=== PATIENT | male | born 1950 | race Caucasian/White ===

== ENCOUNTER → 2017-10-18 11:23 | Outpatient (CLI) | payer OTHER, SELFPAY ==
[2017-10-18 11:44] LABS: Ferritin 123 ng/mL (26-388); Iron 124 ug/dL (65-175)
== END ==
PROVIDERS: Family Provider Family Medicine; PCP Family Medicine; Visit Provider Family Medicine
DX: E78.5 Hyperlipidemia, unspecified (principal); I10 Essential (primary) hypertension; K76.0 Fatty (change of) liver, not elsewhere classified; D50.9 Iron deficiency anemia, unspecified
CPT/HCPCS: 82728; 83540

== ENCOUNTER → 2018-05-18 09:25 | Outpatient (CLI) | payer OTHER, SELFPAY ==
[2018-05-18 12:37] LABS: Absolute Lymphocyte Count 0.81 X10^3/ul (0.83-4.51); Absolute Neutrophil Count 2.1 X10^3/uL (2.0-7.7); Basophil# 0.02 X10^3/uL; Basophil% 0.6 % (0-1); Eosinophil# 0.15 X10^3/uL; Eosinophils% 4.3 % (0-5); Hematocrit 44.6 % (40-54); Hemoglobin 15.3 g/dl (13.0-16.5); Lymphocyte # 0.81 X10^3/ul (4.0); Lymphocyte % 23.1 % (19-41); Mean Corp Hgb Conc 34.3 g/gl (32-36); Mean Corpuscular Hgb 31.4 pg (27.0-32.0); Mean Corpuscular Volume 91.6 fL (80-94); Mean Platelet Vol. 9.6 fl (6.2-12.0); Monocyte# 0.45 X10^3/uL; Monocyte% 12.9 % (0-10); Neutrophil # 2.05 X10^3/uL (2.7-7.7); Neutrophil % 58.5 % (47-70); Platelet Count 184 K/mm3 (150-450); RBC Distribution Width CV 12.5 % (11.6-14.6); RBC Distribution Width SD 40.9 fl (35.1-43.9); Red Blood Count 4.87 M/mm3 (4.6-6.2); White Blood Count 3.5 K/mm3 (4.4-11.0)
[2018-05-18 12:39] LABS: POSITIVE COUNT NO; POSITIVE DIFFERENTIAL NO; POSITIVE MORPHOLOGY NO
[2018-05-18 12:51] LABS: AST(SGOT) 28 U/L (15-37); Alanine Aminotransfer ALT/SGPT 29 U/L (16-61); Alkaline Phosphatase 72 U/L (45-117); Anion Gap 7 (5-15); BUN 20 mg/dL (7-18); BUN/Creat Ratio 21.6 RATIO (10-20); Calcium,Total 8.9 mg/dL (8.5-10.1); Chloride 106 mmol/L (98-107); Creatinine, Serum 0.92 mg/dL (0.70-1.30); EST Glomerular Filtration Rate 86 mL/min (>60); Est Glom Filt Rate - Afr Amer 104 mL/min (>60); Ferritin 175 ng/mL (26-388); Globulin 3.9 g/dL (2.2-4.2); Glucose 98 mg/dL (74-106); Iron 82 ug/dL (65-175); Potassium 4.2 mmol/L (3.5-5.1); Protein, Total 7.9 g/dL (6.4-8.2); Sodium Level 140 mmol/L (136-145)
[2018-05-18 12:59] LABS: Hemoglobin A1c 5.6 % (4.2-6.3)
== END ==
PROVIDERS: Family Provider Family Medicine; PCP Family Medicine; Visit Provider Family Medicine
DX: I10 Essential (primary) hypertension (principal); I78.0 Hereditary hemorrhagic telangiectasia; K76.0 Fatty (change of) liver, not elsewhere classified
CPT/HCPCS: 36415; 80053; 82728; 83036; 83540; 85025

== ENCOUNTER 2018-06-26 20:30 | Emergency (ER) | payer OTHER, SELFPAY ==
[2018-06-26 20:30] VITALS: BP 171/90; PULSE 103; RESP 16; TEMP 37.1; O2SAT 96; BMI 30.5
--- NOTE | 2018-06-26 20:39 | EKG12_ITS ---
Test Reason : PALP Blood Pressure : / mmHG Vent. Rate : 097 BPM Atrial Rate : 097 BPM P-R Int : 170 ms QRS Dur : 078 ms QT Int : 350 ms P-R-T Axes : 032 018 027 degrees QTc Int : 444 ms Sinus rhythm with Premature atrial complexes Possible Inferior infarct , age undetermined Abnormal ECG Confirmed by HAYLEY DERAS, RG ([id number]), telegraph editor LETICIA ONTIVEROS ([id number]) on 07/01/2018 9:09:15 AM Referred By: CHOLO Confirmed By:RG HARDY MD
--- NOTE | 2018-06-26 20:46 | ED.VIS.GEN ---
History of Present Illness Chief Complaint: Hypertension Detail of Chief Complaint: Palpitations, chest tightness, anxiety, lightheadedness Informant: Patient Onset: Today Context: Sudden Onset Timing: Continuous - Chest tightness continuous since onset 1 hour ago. There are no alleviating, precipitating or exacerbating factors including activity, change in position or food., Intermittent - The palpitations is intermittent. Palpitations/feeling his heartbeat have been constant for the past 2 hours. Quality: Chest tightness and palpitations Location: Mid chest Current Severity: Mild Maximum Severity: Mild Worsened by: Absolutely nothing Relieved by: Absolutely nothing Associated Symptoms: Nothing other than palpitations and there is no radiation Narrative: Patient is an elderly male who presents because he felt his heartbeat yesterday while working the [employer]. He states he became fatigued and had to stop. He denied chest discomfort, shortness of breath, nausea or vomiting, diaphoresis or radiation of the palpitations. He denies black stool. He does have dark stool. He is on iron. He denies coronary disease. He has had intermittent episodes of pounding in his chest. He states while sitting 1 hour ago he developed tightness with no associated symptoms or radiation. There is no alleviating, precipitating or exacerbating factors. He does have history of reflux and hiatal hernia. He reports heartburn and indigestion when he is experiencing symptoms secondary to his reflux/hiatal hernia. Prior similar symptoms: No Recent Illness/Hospitalization: No - Past Medical History (1) HTN (hypertension) Status: Chronic (2) GERD (gastroesophageal reflux disease) Status: Chronic (3) HHT (hereditary hemorrhagic telangiectasia) Status: Chronic (4) HLD (hyperlipidemia) Status: Chronic (5) History of GI bleed Status: Chronic Past Medical History - Allergies and Home Meds Allergies/Adverse Reactions: Allergies Penicillins Allergy (Verified 06/26/18 20:36) [facility] Primary Care Physician: Art Hadley MD [Primary Care Provider] - Prior records reviewed: Yes Past Medical History: - - He denies history of PE, DVT and has no risk factors. Surgical History: - - prostate cancer, torn meniscus in knee, elbow surgery, carpal tunnel. Lives: Spouse/ Significant Other Smoking Status: Never smoker Alcohol: None Drugs: None - Family History Maternal Family History: Reports: No pertinent history Paternal Family History: Reports: No pertinent history Review of Systems General: Denies: Chills, Fever, Sweats Eyes: Denies: Visual changes - bilaterally, Blurred Vision - bilaterally, Diplopia ENT: Denies: Rhinorrhea, Sore throat Cardiovascular: Reports: Chest pain - Central tightness, Palpitations Respiratory: Denies: Dyspnea, Cough, Dyspnea on exertion, Orthopnea, Paroxysmal nocturnal dyspnea Gastrointestinal: Denies: Abdominal pain, Nausea, Vomiting, Diarrhea, Melena, Hematochezia Genitourinary: Denies: Dysuria, Hematuria, Frequency Musculoskeletal: Denies: Myalgias, Arthralgias, Back pain, Extremity Pain Skin: Denies: Rash, Wounds Neurological: Denies: Headache, Weakness, Numbness Psych: Reports: Anxiety Hematologic: Denies: Easy bruising, Easy bleeding Allergy: Denies: Uticaria Physical Exam Vital Signs/Narrative: Vital Signs Temp Pulse Resp BP Pulse Ox 06/26/18 20:30 98.8 F 103 H 16 171/90 H 96 Inital Vital Signs reviewed: Yes General: Well nourished, Well developed, No Acute Distress Head: Normocephalic, Atraumatic Eyes: Perrl, EOMI. Negative for: Pale conjunctiva, Scleral icterus ENT: Moist mucous membranes, No rhinorrhea Neck: Supple, Nontender, No lymphadenopathy, No JVD Cardiovascular: Regular rate, Regular rhythm, No murmurs, Normal S1, Normal S2 Respiratory: No distress, CTA bilaterally, Chest nontender, Chest tenderness. Negative for: Decreased Air Movement Abdomen: Soft, Nontender, Nondistended, Normal bowel sounds. Negative for: Hepatomegaly, Splenomegaly, Mass, Pulsatile mass Back: Nontender, Normal Inspection. Negative for: CVA tenderness Extremities: Nontender, No edema, - - DP and PT pulses are palpable. Patient does have hair on his toes.. Negative for: Tenderness, Calf Tenderness Skin: Normal color, No rash. Negative for: Cyanosis, Jaundice Neurological: Alert, Oriented x3, Cranial nerves II-XII grossly intact, Normal Strength, Normal Sensation Psychological: Normal affect, Normal Mood Diagnostic/Tx/Re-eval Laboratory Results 06/26/18 06/26/18 20:40 20:40 WBC 5.3 RBC 4.73 Hgb 14.5 Hct 43.3 MCV 91.5 MCH 30.7 MCHC 33.5 RDW 12.9 RDW Differential 43.1 Plt Count 179 MPV 9.3 Immature Gran % (Auto) 0.200 Neut % (Auto) 69.4 Lymph % (Auto) 18.3 L [place] % (Auto) 9.0 Eos % (Auto) 2.7 Baso % (Auto) 0.4 Absolute Neuts (auto) 3.7 Absolute Lymphs (auto) 0.96 Total Counted Not Reportable Sodium 141 Potassium 3.7 Chloride 109 H Carbon Dioxide 24.0 Anion Gap 8 BUN 20 H Creatinine 1.11 Estim Creat Clear Calc 61.92 Est GFR (MDRD) Af Amer 84 Est GFR (MDRD) Non-Af 70 BUN/Creatinine Ratio 18.0 Glucose 145 H Calcium 9.1 Troponin I < 0.015 - Rhythm Strip Rhythm Strip: Sinus Rhythm Rate: 102 Ectopy: None - EKG Initial EKG Interpretation: Sinus Rhythm - Ventricular rate is 97. There are premature atrial complexes noted. [place] interval is normal. QRS duration is normal. QT interval is normal. [place] is normal. There are no ischemic changes noted. - Medical Decision Making Patient with atypical presentation. EKG, blood work and troponin was ordered. Will order 3-hour troponin as well. Heart score prior to troponin level is 3 which places patient at low risk. Initial troponins normal. Informed patient reason for repeat troponin and what a repeat troponin would mean with a heart score of 3. After explaining risk benefits of leaving prior to repeat troponin versus obtaining it he agreed to stay for repeat troponin. Plan is to discharge to home with outpatient follow-up if repeat troponin is normal; however, if his troponin is elevated or delta is elevated plan is to admit for further workup i.e. cardiac. Chart was completed his with the presumption repeat troponin is negative and he will be discharged home. Repeat troponin to be assessed by Dr. Portillo Mejia who will make disposition once repeat troponin results are known. ED Disposition - Plan for ED Patient: Disposition: Home or Assisted Living Diagnosis: Central chest pain, Heart palpitations, History of hypertension, History of hyperlipidemia Instructions: ED Chest Pain NonCardiac, ED HTN Established, ED Palpitations Referrals: Art Hadley MD [Primary Care Provider] - 3-5 Days
[2018-06-26 21:02] LABS: Absolute Lymphocyte Count 0.96 X10^3/ul (0.83-4.51); Absolute Neutrophil Count 3.7 X10^3/uL (2.0-7.7); Basophil# 0.02 X10^3/uL; Basophil% 0.4 % (0-1); Eosinophil# 0.14 X10^3/uL; Eosinophils% 2.7 % (0-5); Hematocrit 43.3 % (40-54); Hemoglobin 14.5 g/dl (13.0-16.5); Lymphocyte # 0.96 X10^3/ul (4.0); Lymphocyte % 18.3 % (19-41); Mean Corp Hgb Conc 33.5 g/gl (32-36); Mean Corpuscular Hgb 30.7 pg (27.0-32.0); Mean Corpuscular Volume 91.5 fL (80-94); Mean Platelet Vol. 9.3 fl (6.2-12.0); Monocyte# 0.47 X10^3/uL; Neutrophil # 3.65 X10^3/uL (2.7-7.7); Neutrophil % 69.4 % (47-70); Platelet Count 179 K/mm3 (150-450); RBC Distribution Width CV 12.9 % (11.6-14.6); RBC Distribution Width SD 43.1 fl (35.1-43.9); Red Blood Count 4.73 M/mm3 (4.6-6.2); White Blood Count 5.3 K/mm3 (4.4-11.0)
[2018-06-26 21:08] LABS: POSITIVE COUNT NO; POSITIVE DIFFERENTIAL NO; POSITIVE MORPHOLOGY NO
[2018-06-26 21:17] LABS: Anion Gap 8 (5-15); BUN 20 mg/dL (7-18); Calcium,Total 9.1 mg/dL (8.5-10.1); Chloride 109 mmol/L (98-107); Creatinine, Serum 1.11 mg/dL (0.70-1.30); EST Glomerular Filtration Rate 70 mL/min (>60); Est Glom Filt Rate - Afr Amer 84 mL/min (>60); Estimated Creatinine Clearance 61.92 ml/min; Glucose 145 mg/dL (74-106); Potassium 3.7 mmol/L (3.5-5.1); Sodium Level 141 mmol/L (136-145)
[2018-06-26 21:30] VITALS: BP 168/98; PULSE 93; RESP 16; O2SAT 93
[2018-06-26 22:30] VITALS: BP 157/92; PULSE 88; RESP 16; O2SAT 93
[2018-06-26 23:30] VITALS: BP 155/93; PULSE 84; RESP 15; O2SAT 94
[2018-06-27 00:40] VITALS: BP 155/96; PULSE 85; RESP 20; O2SAT 94
== END 2018-06-27 00:40 | disposition home or self-care (01) ==
PROVIDERS: Emergency Provider Emergency Medicine; Family Provider Family Medicine; PCP Family Medicine
DX: R07.9 Chest pain, unspecified (principal); R00.2 Palpitations; I10 Essential (primary) hypertension; E78.5 Hyperlipidemia, unspecified; K21.9 Gastro-esophageal reflux disease without esophagitis; I78.0 Hereditary hemorrhagic telangiectasia; Z79.899 Other long term (current) drug therapy
CPT/HCPCS: 36415; 80048; 84484; 85025; 93005; 99284; A4216

== ENCOUNTER → 2018-06-29 10:04 | Outpatient (CLI) | payer OTHER, SELFPAY ==
[2018-06-26 20:30] VITALS: BMI 30.5
[2018-06-29 12:52] LABS: Magnesium 2.4 mg/dL (1.6-2.6); T4 Free Direct 0.85 ng/dL (0.76-1.46); Thyroid Stim Hormone (TSH) 1.54 uIU/mL (0.358-3.74)
== END ==
PROVIDERS: Family Provider Family Medicine; PCP Family Medicine; Referring Provider Family Medicine; Visit Provider Family Medicine
DX: I49.1 Atrial premature depolarization (principal); R00.2 Palpitations
CPT/HCPCS: 36415; 83735; 84439; 84443

== ENCOUNTER → 2018-07-27 06:56 | Outpatient (CLI) | payer OTHER, SELFPAY ==
[2018-07-06 12:37] VITALS: BMI 30.4
--- NOTE | 2018-07-27 07:03 | ECHOCS_ITS ---
Reason For Study: HYPETENSION Procedure This was a 2D Doppler, Color Flow transthoracic echocardiogram. Exam performed in department. Left Ventricle Normal LV size. Left ventricular systolic function is normal. The estimated ejection fraction is 65 %. Stage 1 diastolic dysfunction. No regional wall motion abnormalities noted. Right Ventricle Normal RV size. Normal systolic function. Atria Normal left atrium. Normal right atrium. Normal atrial septum. Mitral Valve Normal mitral valve. Tricuspid Valve Normal tricuspid valve. Mild to moderate (1-2+) tricuspid valve insufficiency. Pulmonary artery systolic pressure is 42 mmHg. Aortic Valve The aortic valve is not well visualized. Pulmonic Valve Normal pulmonic valve. Great Vessels Normal aortic root. The pulmonary artery is normal size. Normal inferior vena cava. Pericardium/Pleural No pericardial effusion. Medication Diluted definity 4ml given slow IV push to enhance endocardial definition. MMode/2D Measurements & Calculations LVIDd: 4.7 cm IVSd: 1.0 cm Ao root diam: 3.5 cm LVIDs: 2.6 cm LVPWd: 1.0 cm RVDd: 4.2 cm FS: 44.2 % LAV(MOD-bp): 53.2 ml LVAd ap4: 33.3 cm2 SV(MOD-sp4): 64.8 ml LAV(MOD-bp) Indexed: 25.4 ml/m2 EDV(MOD-sp4): 99.3 ml LAV(MOD-sp2): 64.0 ml EDV(sp4-el): 105.0 ml LAV(MOD-sp4): 43.7 ml LVAs ap4: 17.6 cm2 ESV(MOD-sp4): 34.6 ml ESV(sp4-el): 35.5 ml EF(MOD-sp4): 65.2 % EF(sp4-el): 66.2 % SV(sp4-el): 69.5 ml LA A4 area: 16.6 cm2 LA dimension(2D): 3.7 cm RA A4 area: 18.2 cm2 Time Measurements MV dec time: 0.28 sec Doppler Measurements & Calculations MV E max chemo: 66.5 cm/sec Lat Peak E' Chemo: 11.9 cm/sec Med Peak E' Chemo: 10.0 cm/sec MV A max chemo: 80.8 cm/sec E/E' lat: 5.6 E/E' med: 6.7 MV E/A: 0.82 Ao V2 max: 177.7 cm/sec LV V1 max: 119.0 cm/sec PA V2 max: 115.1 cm/sec Ao max P.9 mmHg LV V1 max P.8 mmHg TR max chemo: 309.8 cm/sec TR max P.4 mmHg Interpretation Summary Normal LV size. Left ventricular systolic function is normal. The estimated ejection fraction is 65 %. Stage 1 diastolic dysfunction. Contrast injection was performed. Ordering Physician: Alexis Zhou Referring Physician: NUBIA BALLARD Performed By: Sharla Dalal RDCS
--- NOTE | 2018-07-27 09:27 | STRESSREP_ITS ---
Stress Test Report Exercise myocardial perfusion stress test. 68-year-old male with a history of chest pain. Stress protocol: Resting EKG demonstrates normal sinus rhythm with a rate of 85 bpm normal intervals are noted resting blood pressure 140/82 mmHg. The patient exercised: To regular Jose F protocol for total duration of 8 minutes. The patient compl eted 2 minutes into stage III of the Jose F protocol. At rest there were no ST or T wave changes noted suggest ischemia peak exercise upsloping ST changes only were noted with no meet the criteria for ischemia. The resting blood pressure 140/82 mmHg with a peak blood pressure 170/74 mmHg. No clinical angina was noted. Myocardial perfusion protocol. 14.7 mCi of technetium 99m sestamibi was injected at rest. The patient exercised according to regular Jose F protocol for total duration of 8 minutes at peak exercise 44.5 mCi of technetium 99m sestamibi was injected stress images were obtained stress and rest images were reconstructed and compared in the short axis vertical long horizontal long axis. Gated images were also obtained per Perfusion SPECT analysis: Review of the stress images demonstrate normal uptake of tracer noted in all areas of myocardium. The resting images similarly demonstrate normal uptake of tracer noted in all areas of myocardium. No areas of reversibility are noted suggest ischemia no previous infarct is noted. Gated SPECT analysis: The gated ejection fraction is noted to be 72%. Conclusion: Normal exercise myocardial perfusion stress test. Excellent functional capacity. Preserved ejection fraction.
== END ==
PROVIDERS: Family Provider Family Medicine; PCP Family Medicine; Referring Provider Internal Medicine Cardiovascular Disease; Visit Provider Internal Medicine Cardiovascular Disease
DX: I10 Essential (primary) hypertension (principal); R07.9 Chest pain, unspecified
CPT/HCPCS: 78452; 93017; 93306; A9500; Q9957; A4216; C8929

== ENCOUNTER → 2018-10-13 11:31 | Outpatient (CLI) | payer OTHER, SELFPAY ==
[2018-10-11 12:46] VITALS: BMI 30.1
== END ==
PROVIDERS: Family Provider Family Medicine; PCP Family Medicine
DX: Z00.00 Encounter for general adult medical examination without abnormal findings (principal)
CPT/HCPCS: 84403

== ENCOUNTER → 2019-05-16 15:11 | Outpatient (CLI) | payer OTHER, SELFPAY ==
[2018-10-11 12:46] VITALS: BMI 30.1
[2019-05-16 17:36] LABS: Absolute Lymphocyte Count 0.92 X10^3/uL (0.83-4.51); Absolute Neutrophil Count 2.7 X10^3/uL (2.0-7.7); Basophil# 0.04 X10^3/uL; Basophil% 0.9 % (0-1); Eosinophil# 0.18 X10^3/uL; Eosinophils% 4.2 % (0-5); Hematocrit 41.7 % (40-54); Hemoglobin 14.2 g/dL (13.0-16.5); Lymphocyte # 0.92 X10^3/ul (4.0); Lymphocyte % 21.6 % (19-41); Mean Corp Hgb Conc 34.1 g/dL (32-36); Mean Corpuscular Hgb 30.4 pg (27.0-32.0); Mean Corpuscular Volume 89.3 fL (80-94); Mean Platelet Vol. 9.7 fl (6.2-12.0); Monocyte# 0.45 X10^3/uL; Monocyte% 10.6 % (0-10); NRBC Flagged by Analyzer 0 % (0-5); Neutrophil # 2.65 X10^3/uL (2.7-7.7); Neutrophil % 62.5 % (47-70); Platelet Count 205 K/mm3 (150-450); RBC Distribution Width SD 42.2 fl (35.1-43.9); Red Blood Count 4.67 M/mm3 (4.6-6.2); White Blood Count 4.3 K/mm3 (4.4-11.0)
[2019-05-16 17:40] LABS: Vitamin B12 381 pg/mL (211-911)
[2019-05-16 17:42] LABS: AST(SGOT) 14 U/L (15-37); Alanine Aminotransfer ALT/SGPT 21 U/L (16-61); Albumin, Serum 3.8 g/dL (3.2-5.0); Alkaline Phosphatase 70 U/L (45-117); Anion Gap 6 (5-15); BUN 19 mg/dL (7-18); BUN/Creat Ratio 21.3 RATIO (10-20); Calcium,Total 9.1 mg/dL (8.5-10.1); Chloride 103 mmol/L (98-107); Creatinine, Serum 0.89 mg/dL (0.70-1.30); EST Glomerular Filtration Rate 89 mL/min (>60); Est Glom Filt Rate - Afr Amer 108 mL/min (>60); Ferritin 100 ng/mL (26-388); Globulin 3.9 g/dL (2.2-4.2); Glucose 160 mg/dL (74-106); Iron 59 ug/dL (65-175); Potassium 3.4 mmol/L (3.5-5.1); Protein, Total 7.7 g/dL (6.4-8.2); Sodium Level 137 mmol/L (136-145); Thyroid Stim Hormone (TSH) 1.18 uIU/mL (0.358-3.74)
== END ==
PROVIDERS: PCP Family Medicine; Visit Provider Family Medicine
DX: I10 Essential (primary) hypertension (principal); I49.1 Atrial premature depolarization; E78.5 Hyperlipidemia, unspecified; D50.9 Iron deficiency anemia, unspecified
CPT/HCPCS: 36415; 80053; 82607; 82728; 83540; 84443; 85025

== ENCOUNTER 2019-12-02 13:56 | Inpatient (IN) | payer OTHER, MEDICARE, SELFPAY ==
[2019-10-12 14:32] VITALS: BMI 28.9
[2019-12-02] VITALS (9 sets, daily range): BP systolic 126–148; BP diastolic 74–79; PULSE 68–92; RESP 15–20; TEMP 36.8–37.3; O2SAT 96–100; BMI 29.2; BMI 29.0
--- NOTE | 2019-12-02 14:31 | EKG12_ITS ---
Test Reason : Blood Pressure : / mmHG Vent. Rate : 079 BPM Atrial Rate : 079 BPM P-R Int : 172 ms QRS Dur : 078 ms QT Int : 404 ms P-R-T Axes : 035 012 044 degrees QTc Int : 463 ms Normal sinus rhythm Possible Inferior infarct (cited on or before 06-DEC-2016) Abnormal ECG Confirmed by HAYLEY DERAS, RG ([id number]), telegraph editor TAMIE PARKER ([id number]) on 12/04/2019 2:38:50 PM Referred By: DC Confirmed By:RG HARDY MD
[2019-12-02 14:37] LABS: Absolute Neutrophil Count 5.2 X10^3/uL (2.0-7.7); Basophil# 0.04 X10^3/uL; Basophil% 0.6 % (0-1); Eosinophil# 0.08 X10^3/uL; Eosinophils% 1.1 % (0-5); Hematocrit 27.7 % (40-54); Hemoglobin 9.2 g/dL (13.0-16.5); Lymphocyte % 15.7 % (19-41); Mean Corp Hgb Conc 33.2 g/dL (32-36); Mean Corpuscular Hgb 31.6 pg (27.0-32.0); Mean Corpuscular Volume 95.2 fL (80-94); Mean Platelet Vol. 9.1 fl (6.2-12.0); Monocyte# 0.56 X10^3/uL; Neutrophil # 5.19 X10^3/uL (2.7-7.7); Platelet Count 242 K/mm3 (150-450); RBC Distribution Width SD 43.6 fl (35.1-43.9); Red Blood Count 2.91 M/mm3 (4.6-6.2)
[2019-12-02 14:46] LABS: Prothrombin Time (Protime)PT. 12.5 SECONDS (11.7-14.9)
[2019-12-02 14:47] LABS: Partial Thromboplast Time 26.3 Seconds (24.1-36.2)
[2019-12-02 14:50] LABS: Anion Gap 7 (5-15); BUN 23 mg/dL (7-18); BUN/Creat Ratio 25.6 RATIO (10-20); Calcium,Total 8.4 mg/dL (8.5-10.1); Chloride 107 mmol/L (98-107); EST Glomerular Filtration Rate 89 mL/min (>60); Est Glom Filt Rate - Afr Amer 107 mL/min (>60); Estimated Creatinine Clearance 75.28 ml/min; Glucose 104 mg/dL (74-106); Potassium 3.8 mmol/L (3.5-5.1); Sodium Level 142 mmol/L (136-145)
--- NOTE | 2019-12-02 15:53 | ED.DCSUM_ITS ---
- ER Visit Summary Date of Service: 12/02/19 Chief Complaint: GI bleed History of Present Illness: The patient is a 69 M who presents with black stool since yesterday. History of HHT. No blood thinner use. Known to Dr. Bui, and he had endoscopy weeks ago which was unremarkable. Feels anemic, weak and dizzy. Physical Examination: Afebrile and vital signs unremarkable. Abdomen soft and nontender. He does have black stool. Skin appears normal. Test Results: EKG shows sinus rhythm at a rate of 79. Hemoglobin has dropped since April from 14 down to 9.2. Otherwise his labs are unremarkable. Hemoccult positive. Type and screen performed. Emergency Department Course and Treatment: Patient placed on the monitor. Treated with Protonix. He has a stable presumed upper GI bleed. Because of his symptoms and his anemia, will contact the hospitalist to admit. Treatment Plan: As above Disposition: Admission Impression: GI bleed, anemia This note was generated with [employer] dictation software. It may contain incorrect words, spelling, and punctuation that were not noted in review of the chart prior to signing ED Disposition - Plan for ED Patient: Referrals: Art Hadley MD [Primary Care Provider] -
--- NOTE | 2019-12-02 16:05 | PCM.HP.STD ---
Problem List (1) GI bleed Status: Acute (2) Palpitations Status: Chronic (3) Essential (primary) hypertension Status: Chronic (4) Hyperlipidemia Status: Chronic (5) Secondary pulmonary arterial hypertension Status: Chronic (6) HHT (hereditary hemorrhagic telangiectasia) Status: Chronic History of Present Illness Date of Admission: 12/02/19 Chief Complaint: Melenic stools The patient is a 69 year old M with past medical history single for hypertension, HHT (hereditary hemorrhagic telangiectasia) who presented with melena. Patient symptoms started a day prior to patient coming in. In addition to patient melena patient did experience lightheadedness. In view of the persistent nature of his symptoms he presented to the emergency department. Hemoglobin in the ED was 9.2. Patient was started on Protonix drip and admitted to a monitored bed with consultation placed to general surgery Past Medical History Past Medical History (Chronic Problems): Chronic Problems (Last Reviewed 12/02/19 @ 16:[address] Marlon Lazo MD) Palpitations (Chronic) Essential (primary) hypertension (Chronic) Hyperlipidemia (Chronic) Secondary pulmonary arterial hypertension (Chronic) HHT (hereditary hemorrhagic telangiectasia) (Chronic) Medical History: Medical History (Last Reviewed 12/02/19 @ 16:[address] Marlon Lazo MD) Essential (primary) hypertension (Chronic) I10 Hyperlipidemia (Chronic) E78.5 Secondary pulmonary arterial hypertension (Chronic) I27.21 HHT (hereditary hemorrhagic telangiectasia) (Chronic) I78.0 Erectile dysfunction N52.9 GERD (gastroesophageal reflux disease) K21.9 Non-alcoholic fatty liver disease K76.0 Obesity E66.9 GI bleed Onset Date: 2016 K92.2 Non-rheumatic tricuspid valve insufficiency (Inactive) I36.1 Allergies Penicillins Allergy (Verified 12/02/19 14:00) Hives aspirin Adverse Reaction (Verified 12/02/19 14:00) H/O HHT Home Medications: Ambulatory Orders Medication Instructions Recorded calcium carbonate 500 mg (1,250 1 tab PO DAILY tab 07/06/18 mg)-vitamin D3 200 unit tablet ferrous sulfate 325 mg (65 mg 325 mg PO BID tab 07/06/18 iron) tablet folic acid 800 mcg tablet 0.8 mg PO DAILY 07/06/18 multivitamin 1 tab PO DAILY 07/06/18 omeprazole 40 mg capsule,delayed 40 mg PO DAILY 07/06/18 release amlodipine 10 mg tablet 10 mg PO DAILY #90 tab 08/11/19 hydrochlorothiazide 25 mg tablet 25 mg PO DAILY #90 tab 09/25/19 losartan 100 mg tablet 100 mg PO DAILY #90 tab 09/25/19 atorvastatin 40 mg tablet 40 mg PO QHS 10/12/19 Cetirizine HCl [Zyrtec] 10 mg PO PRN PRN 12/02/19 Surgical History: Surgical History (Last Reviewed 12/02/19 @ 16:[address] Marlon Lazo MD) History of carpal tunnel release Z98.890 History of prostatectomy Onset Date: 05/2012 Z90.79 Surgical History: - - prostate cancer, torn meniscus in knee, elbow surgery, carpal tunnel. Smoking Status: Never smoker - *Family History Maternal Family History: Family History (Last Reviewed 12/02/19 @ 16:[address] Marlon Lazo MD) Father Hereditary hemorrhagic telangiectasia Sister Hereditary hemorrhagic telangiectasia History Items: No pertinent history Paternal Family History: Family History (Last Reviewed 12/02/19 @ 16:[address] Marlon Lazo MD) Father Hereditary hemorrhagic telangiectasia Sister Hereditary hemorrhagic telangiectasia History Items: No pertinent history Review of Systems Constitutional: Reports: Malaise, Weakness. Denies: Anorexia, Chills, Fever, Night Sweats, Weight Change HEENT: Denies: Head Aches, Sinus Congestion, Sinus Drainage Cardiovascular: Reports: Light Headedness. Denies: Chest Pain, Orthopnea, Palpitations, Paroxysmal Noc. Dyspnea Respiratory: Denies: Cough, Shortness of breath at rest, Shortness of breath upon exertion, Sputum production Gastrointestinal: Reports: Melena. Denies: Abdominal Pain, Hematemesis, Hematochezia, Nausea, Vomiting Genitourinary: Denies: Dysuria, Frequency, Hematuria, Urgency Musculoskeletal: Denies: Joint Pain, Joint Tenderness Skin: Denies: Rash Neurological: Denies: Focal weakness, Numbness, Tingling Psychiatric: Denies: Homicidal Ideations, Suicidal Ideations Hematologic/ Lymphatic: Denies: Easy Bruising, Easy Bleeding VTE Information - Inpt Only VTE Present on Admission: No VTE Mechan Device Prophylaxis: SCD's VTE Pharm Prophylaxis ordered?: No Reason prophylaxis not ordered:: Medical Contraindication Patient Problems: Active and Suspected Problems (Last Reviewed 12/02/19 @ 16:[address] Marlon Lazo MD) GI bleed (Acute) Objective: GENERAL: cooperative HEENT: Atraumatic; EYES; Anicteric, Normal Conjunctiva NECK; supple, normal thyroid, RESPIRATORY: Diminished to auscultation CARDIOVASCULAR: Regular S1 S2, GI: soft, normoactive bowel sounds, : No Renal angle tenderness; EXTREMITIES: No edema, no clubbing, MUSCULOSKELETAL: no muscle waisting NEURO: Awake; no lateralizing signs. SKIN: No Rash PSYCH; Flat affect - Physical Exam Vitals/I&O's: Vital Signs Temp Pulse Resp BP Pulse Ox 98.3 F 79 20 H 129/74 H 96 12/02/19 13:57 12/02/19 15:11 12/02/19 15:11 12/02/19 15:11 12/02/19 15:11 Oxygen Delivery Method Room Air Weight: 89.811 kg Body Mass Index (BMI) 29.2 Microbiology Past 72 Hours 12/02/19 15:10 Stool Stool Occult Blood (CHAPO) - Final Occult Blood Positive Laboratory Results 12/02/19 14:15: WBC 7.0, RBC 2.91 L, Hgb 9.2 L, Hct 27.7 L, MCV 95.2 H, MCH 31.6, MCHC 33.2, RDW Std Deviation 43.6, RDW Coeff of [place] 13.0, Plt Count 242, MPV 9.1, Immature Gran % (Auto) 0.600, Neut % (Auto) 74.0 H, Lymph % (Auto) 15.7 L, [place] % (Auto) 8.0, Eos % (Auto) 1.1, Baso % (Auto) 0.6, Absolute Neuts (auto) 5.2, Absolute Lymphs (auto) 1.10, Nucleated RBC % 1.0 12/02/19 14:15: PT 12.5, INR 1.0, APTT 26.3 12/02/19 14:15: Sodium 142, Potassium 3.8, Chloride 107, Carbon Dioxide 28.0, Anion Gap 7, BUN 23 H, Creatinine 0.90, Estim Creat Clear Calc 75.28, Est GFR (MDRD) Af Amer 107, Est GFR (MDRD) Non-Af 89, BUN/Creatinine Ratio 25.6 H, Glucose 104, Calcium 8.4 L Assessment/Plan All Active Problems (Last Reviewed 12/02/19 @ 16:[address] Marlon Lazo MD) GI bleed (Acute) Dyspnea (Resolved) Exertional chest pain (Resolved) Patient is a 69-year-old gentleman with past medical history sent in for hereditary hemorrhagic large ectasia presented with melena 1. Acute GI bleed ?Most likely upper GI bleed patient presented with melena. Patient has history of HHT do suspect that to be the etiology. Patient started on Protonix drip admitted to monitored bed with consultation placed to general surgery for possible endoscopic evaluation. Patient was typed and screened prior to patient being admitted 2. HHT ?Patient presented with GI bleed management as discussed above 3. Hypertension - Blood pressure controlled, home medications continued with dose adjustment as needed 4. Dyslipidemia -Patient is on statin therapy, continued at home dose 5. DVT prophylaxis ?SCDs Advance planning; did discuss with the patient and family regarding advanced directives as well as CODE STATUS. Did explain the various scenarios involved ( FULL CODE, DNR CCA, DNR CCA with no intubation, and DNR CC and what each meant) patient elected to code with CPR and intubation if needed. Order was placed. Time spent on discussion 18 minutes. Inpatient E&M: 19956 Init Hosp L3 Procedures: 42534 Advncd Care Plan 30 Min
--- NOTE | 2019-12-02 16:11 | NURSING ---
MED SURG GI BLEED KITTOE
[2019-12-02] MEDS: 0.9% Saline Lock 10 ML Syringe IV (17:47)
[2019-12-02] MEDS: Lactated Ringers 1,000 ML 125 ML IV (17:47)
[2019-12-02] MEDS: Ferrous Sulfate 325 MG Tablet PO (18:13)
[2019-12-02] MEDS: Atorvastatin Calcium 40 MG Tablet PO (21:47)
[2019-12-03] MEDS: Lactated Ringers 1,000 ML 125 ML IV ×2 (02:00→09:26)
[2019-12-03 04:40] VITALS: BP 116/76; PULSE 77; RESP 16; TEMP 36.6; O2SAT 96
[2019-12-03 04:45] VITALS: PULSE 74; RESP 15; O2SAT 96
[2019-12-03 05:16] VITALS: PULSE 74
[2019-12-03 06:11] LABS: Absolute Lymphocyte Count 0.96 X10^3/uL (0.83-4.51); Absolute Neutrophil Count 3.2 X10^3/uL (2.0-7.7); Basophil# 0.04 X10^3/uL; Basophil% 0.8 % (0-1); Eosinophil# 0.13 X10^3/uL; Eosinophils% 2.7 % (0-5); Hematocrit 25.3 % (40-54); Hemoglobin 8.2 g/dL (13.0-16.5); Lymphocyte # 0.96 X10^3/ul (4.0); Lymphocyte % 20.1 % (19-41); Mean Corp Hgb Conc 32.4 g/dL (32-36); Mean Corpuscular Hgb 30.8 pg (27.0-32.0); Mean Corpuscular Volume 95.1 fL (80-94); Mean Platelet Vol. 8.6 fl (6.2-12.0); Monocyte# 0.47 X10^3/uL; Monocyte% 9.8 % (0-10); NRBC Flagged by Analyzer 0.6 % (0-5); Neutrophil # 3.16 X10^3/uL (2.7-7.7); Neutrophil % 66.2 % (47-70); Platelet Count 195 K/mm3 (150-450); RBC Distribution Width CV 13.1 % (11.6-14.6); Red Blood Count 2.66 M/mm3 (4.6-6.2); White Blood Count 4.8 K/mm3 (4.4-11.0)
[2019-12-03 06:36] LABS: Anion Gap 6 (5-15); BUN 14 mg/dL (7-18); Calcium,Total 8.2 mg/dL (8.5-10.1); Chloride 105 mmol/L (98-107); Creatinine, Serum 0.82 mg/dL (0.70-1.30); EST Glomerular Filtration Rate 98 mL/min (>60); Est Glom Filt Rate - Afr Amer 119 mL/min (>60); Estimated Creatinine Clearance 82.63 ml/min; Glucose 104 mg/dL (74-106); Magnesium 2.3 mg/dL (1.6-2.6); Potassium 3.8 mmol/L (3.5-5.1); Sodium Level 140 mmol/L (136-145)
[2019-12-03 06:39] VITALS: PULSE 119
[2019-12-03 07:32] VITALS: PULSE 78
[2019-12-03] MEDS: Multivitamins,Therapeutic Tablet 1 TABLET PO (07:35)
[2019-12-03] MEDS: Ferrous Sulfate 325 MG Tablet PO (07:35)
[2019-12-03] MEDS: Folic Acid 1 MG Tablet PO (07:35)
--- NOTE | 2019-12-03 08:56 | PCM.CONS.GEN ---
Problem List (1) GI bleed Status: Acute Qualifiers: GI bleed type/associated pathology: unspecified gastrointestinal hemorrhage type Qualified Code(s): K92.2 - Gastrointestinal hemorrhage, unspecified Reason for Consult Date of Consultation: 12/03/19 History of Present Illness: The patient is a 69 year old M with past medical history single for hypertension, HHT (hereditary hemorrhagic telangiectasia) who presented with melena. Patient symptoms started a day prior to patient coming in. In addition to patient melena patient did experience lightheadedness. In view of the persistent nature of his symptoms he presented to the emergency department. Hemoglobin in the ED was 9.2. Patient was started on Protonix drip Patient has had no further bowel movements while being in the hospital. He no longer feels orthostatic. Past Medical History Past Medical History (Chronic Problems): Chronic Problems (Last Reviewed 12/02/19 @ 16:[address] Marlon Lazo MD) Palpitations (Chronic) Essential (primary) hypertension (Chronic) Hyperlipidemia (Chronic) Secondary pulmonary arterial hypertension (Chronic) HHT (hereditary hemorrhagic telangiectasia) (Chronic) Medical History: Medical History (Last Reviewed 12/03/19 @ 08:[address] 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 Erectile dysfunction N52.9 GERD (gastroesophageal reflux disease) K21.9 Non-alcoholic fatty liver disease K76.0 Obesity E66.9 GI bleed Onset Date: 2016 K92.2 Non-rheumatic tricuspid valve insufficiency (Inactive) I36.1 Allergies Penicillins Allergy (Verified 12/02/19 14:00) Hives aspirin Adverse Reaction (Verified 12/02/19 14:00) H/O HHT Home Medications: Ambulatory Orders Medication Instructions Recorded calcium carbonate 500 mg (1,250 1 tab PO DAILY tab 07/06/18 mg)-vitamin D3 200 unit tablet ferrous sulfate 325 mg (65 mg 325 mg PO BID tab 07/06/18 iron) tablet folic acid 800 mcg tablet 0.8 mg PO DAILY 07/06/18 multivitamin 1 tab PO DAILY 07/06/18 omeprazole 40 mg capsule,delayed 40 mg PO DAILY 07/06/18 release amlodipine 10 mg tablet 10 mg PO DAILY #90 tab 08/11/19 hydrochlorothiazide 25 mg tablet 25 mg PO DAILY #90 tab 09/25/19 losartan 100 mg tablet 100 mg PO DAILY #90 tab 09/25/19 atorvastatin 40 mg tablet 40 mg PO QHS 10/12/19 Cetirizine HCl [Zyrtec] 10 mg PO PRN PRN 12/02/19 Surgical History: Surgical History (Last Reviewed 12/03/19 @ 08:[address] Primo Rodriguez MD) History of carpal tunnel release Z98.890 History of prostatectomy Onset Date: 05/2012 Z90.79 Surgical History: - - prostate cancer, torn meniscus in knee, elbow surgery, carpal tunnel. Smoking Status: Never smoker - *Family History Maternal Family History: Family History (Last Reviewed 12/03/19 @ 08:[address] Primo Rodriguez MD) Father Hereditary hemorrhagic telangiectasia Sister Hereditary hemorrhagic telangiectasia History Items: No pertinent history Paternal Family History: Family History (Last Reviewed 12/03/19 @ 08:[address] Primo Rodriguez MD) Father Hereditary hemorrhagic telangiectasia Sister Hereditary hemorrhagic telangiectasia History Items: No pertinent history Review of Systems Constitutional: Denies: Chills, Fever, Weight Change Cardiovascular: Denies: Chest Pain, Chest Pressure, Chest Tightness, Palpitations Respiratory: Denies: Cough, Hemoptysis, Shortness of breath at rest, Shortness of breath upon exertion, Wheezing Gastrointestinal: Denies: Abdominal Pain, Constipation, Diarrhea, Hematemesis, Nausea, Melena, Vomiting Genitourinary: Denies: Dysuria, Frequency, Hematuria, Urgency Patient Problems: Active and Suspected Problems (Last Reviewed 12/02/19 @ 16:[address] Marlon Lazo MD) GI bleed (Acute) - Physical Exam Vitals/I&O's: Vital Signs Temp Pulse Resp BP Pulse Ox 97.8 F 78 15 116/76 96 12/03/19 04:40 12/03/19 07:32 12/03/19 04:45 12/03/19 04:40 12/03/19 04:45 Oxygen Delivery Method Room Air Weight: 196 lb 3.382 oz Body Mass Index (BMI) 29.0 Intake and Output for Last 24 Hours 12/01/19 12/02/19 12/03/19 23:59 23:59 23:59 Intake Total 895 / 895 1100 / 1100 Balance 895 / 895 1100 / 1100 General: Alert, Oriented x3 Lungs: Clear to auscultation Cardiovascular: Regular rate, Regular Rhythm, No murmurs Abdomen: Bowel Sounds Present, Soft, Non Tender, Non-Distended Microbiology Past 72 Hours 12/02/19 15:10 Stool Stool Occult Blood (CHAPO) - Final Occult Blood Positive Laboratory Results 12/02/19 14:15: WBC 7.0, RBC 2.91 L, Hgb 9.2 L, Hct 27.7 L, MCV 95.2 H, MCH 31.6, MCHC 33.2, RDW Std Deviation 43.6, RDW Coeff of [place] 13.0, Plt Count 242, MPV 9.1, Immature Gran % (Auto) 0.600, Neut % (Auto) 74.0 H, Lymph % (Auto) 15.7 L, [place] % (Auto) 8.0, Eos % (Auto) 1.1, Baso % (Auto) 0.6, Absolute Neuts (auto) 5.2, Absolute Lymphs (auto) 1.10, Nucleated RBC % 1.0 12/02/19 14:15: PT 12.5, INR 1.0, APTT 26.3 12/02/19 14:15: Sodium 142, Potassium 3.8, Chloride 107, Carbon Dioxide 28.0, Anion Gap 7, BUN 23 H, Creatinine 0.90, Estim Creat Clear Calc 75.28, Est GFR (MDRD) Af Amer 107, Est GFR (MDRD) Non-Af 89, BUN/Creatinine Ratio 25.6 H, Glucose 104, Calcium 8.4 L 12/02/19 14:15: Blood Type O POSITIVE, Antibody Screen NEGATIVE 12/03/19 05:59: WBC 4.8, RBC 2.66 L, Hgb 8.2 L, Hct 25.3 L, MCV 95.1 H, MCH 30.8, MCHC 32.4, RDW Std Deviation 44.0 H, RDW Coeff of [place] 13.1, Plt Count 195, MPV 8.6, Immature Gran % (Auto) 0.400, Neut % (Auto) 66.2, Lymph % (Auto) 20.1, [place] % (Auto) 9.8, Eos % (Auto) 2.7, Baso % (Auto) 0.8, Absolute Neuts (auto) 3.2, Absolute Lymphs (auto) 0.96, Nucleated RBC % 0.6 12/03/19 05:59: Sodium 140, Potassium 3.8, Chloride 105, Carbon Dioxide 29.0, Anion Gap 6, BUN 14, Creatinine 0.82, Estim Creat Clear Calc 82.63, Est GFR (MDRD) Af Amer 119, Est GFR (MDRD) Non-Af 98, BUN/Creatinine Ratio 17.0, Glucose 104, Calcium 8.2 L, Magnesium 2.3 Current Medications Acetaminophen (Tylenol) 650 mg PO Q6H PRN PRN PRN Reason: Pain Score 1-10/Temp > 100.7 F Al Hydroxide/Mg Hydroxide (Mylanta Ii) 30 ml PO Q6H PRN PRN PRN Reason: Gastric Burning Albuterol Sulfate (Ventolin Aerosols) 2.5 mg INHALATION Q2H PRN PRN PRN Reason: SOB/Wheezing Amlodipine Besylate (Norvasc) 10 mg PO DAILY [facility] Atorvastatin Calcium (Lipitor) 40 mg PO QHS [facility] Last Admin: 12/02/19 21:47 Dose: 40 mg Documented by: Calcium/Vitamin D (Os-Ko 500mg + D) 1 tablet PO DAILY@1200 [facility] Ferrous Sulfate (Ferrous Sulfate) 325 mg PO BIDCM [facility] Last Admin: 12/03/19 07:35 Dose: 325 mg Documented by: Folic Acid (Folic Acid) 1 mg PO DAILY@0800 [facility] Last Admin: 12/03/19 07:35 Dose: 1 mg Documented by: Guaifenesin (Robitussin) 20 ml PO Q4H PRN PRN PRN Reason: COUGH Hydrochlorothiazide (Hctz) 25 mg PO DAILY [facility] Lactated Ringer's () 1,000 mls @ 125 mls/hr IV .Q8H [facility] Last Admin: 12/03/19 02:00 Dose: 125 mls/hr Documented by: Pantoprazole Sodium 80 mg/ (Sodium Chloride) 100 mls @ 10 mls/hr CONT INF Q10H [facility] Last Admin: 12/03/19 05:11 Dose: 10 mls/hr Documented by: Loratadine (Claritin) 10 mg PO DAILY PRN PRN PRN Reason: Allergies Losartan Potassium (Cozaar) 100 mg PO DAILY [facility] Multivitamins (Multivitamin) 1 tablet PO DAILY@0800 [facility] Last Admin: 12/03/19 07:35 Dose: 1 tablet Documented by: Nitroglycerin (Nitrostat) 0.4 mg SUBLINGUAL Q5M PRN PRN Reason: CARDIAC/CHEST PAIN Ondansetron HCl (Zofran) 4 mg IV Q8H PRN PRN PRN Reason: NAUSEA/VOMITING Oxycodone HCl (Oxyir) 5 mg PO Q4H PRN PRN PRN Reason: Pain Score 4-5/10 Promethazine HCl (Phenergan) 25 mg IM Q6H PRN PRN PRN Reason: Breakthrough Nausea/Vomiting Senna/Docusate Sodium (Senokot-S, Veronica-Colace) 2 tablet PO BID PRN PRN PRN Reason: Constipation Sodium Chloride () 10 - 40 ml IV UD PRN PRN Reason: SALINE FLUSH Last Admin: 12/02/19 17:47 Dose: 10 ml Documented by: Assessment/Plan All Active Problems (Last Reviewed 12/02/19 @ 16:[address] Marlon Lazo MD) GI bleed (Acute) Dyspnea (Resolved) Exertional chest pain (Resolved) We will allow the patient to have liquids. If he does okay and has no further bowel movements probably can be discharged today or tomorrow and I will see him as an outpatient and perform an upper endoscopy after he has a COVID test. Office Visits / Consults: [id number] IP Consult L3
[2019-12-03 09:24] VITALS: BP 135/85; PULSE 79; RESP 16; TEMP 36.7; O2SAT 96
[2019-12-03] MEDS: Losartan Potassium 100 MG Tablet PO (09:28)
[2019-12-03] MEDS: hydroCHLOROthiazide 25 MG Tablet PO (09:28)
[2019-12-03] MEDS: amLODIPine 10 MG Tablet PO (09:28)
--- NOTE | 2019-12-03 11:19 | DCINST_ITS ---
- Discharge Diagnoses Current Active Problems: Current Active and Chronic Problems (Last Reviewed 12/03/19 @ 08:[address] Primo Rodriguez MD) GI bleed (Acute) You will use the following diet at home:: No restrictions Discharge Activity: Return to Normal Activity Call your doctor if you observe: Shortness of breath, Dizziness, Fainting spells, Chest pain Additional Instructions: You will need repeat CBC by primary care provider 2-3 days. Allergies/Adverse Reactions: Allergies Penicillins Allergy (Verified 12/02/19 14:00) Hives aspirin Adverse Reaction (Verified 12/02/19 14:00) H/O HHT Medications to take at Discharge calcium carbonate 500 mg (1,250 mg)-vitamin D3 200 unit tablet 1 tab PO DAILY tab 07/06/18 ferrous sulfate 325 mg (65 mg iron) tablet 325 mg PO BID tab 07/06/18 folic acid 800 mcg tablet 0.8 mg PO DAILY 07/06/18 multivitamin 1 tab PO DAILY 07/06/18 amlodipine 10 mg tablet 10 mg PO DAILY #90 tab 08/11/19 hydrochlorothiazide 25 mg tablet 25 mg PO DAILY #90 tab 09/25/19 losartan 100 mg tablet 100 mg PO DAILY #90 tab 09/25/19 atorvastatin 40 mg tablet 40 mg PO QHS 10/12/19 Cetirizine HCl [Zyrtec] 10 mg PO PRN PRN 12/02/19 Primary Care Physician: Art Hadley MD [Primary Care Provider] - Please follow up with your Primary Care Physician in: 1 Week Test Results: Test results from this visit will be discussed in further detail at your follow- up appointment, if applicable. Please Follow Up With: Primo Rodriguez MD When: Call for outpatient scope Proposed Discharge Date: 12/03/19
--- NOTE | 2019-12-03 11:21 | DS.PCM_ITS ---
<Debra Atkinson - Last Filed: 12/03/19 11:52> Discharge Date and Diagnosis Date of Admission: 12/02/19 Date of Discharge: 12/03/19 - Primary Discharge Diagnosis Acute Problems: Active Problems (Last Reviewed 12/03/19 @ 08:[address] Primo Rodriguez MD) 1. Acute upper GI bleed 2. HHT 3. Hypertension 4. Hyperlipidemia - Secondary Discharge Diagnosis Chronic Problems: Chronic Problems (Last Reviewed 12/03/19 @ 08:[address] Primo Rodriguez MD) Palpitations (Chronic) Essential (primary) hypertension (Chronic) Hyperlipidemia (Chronic) Secondary pulmonary arterial hypertension (Chronic) HHT (hereditary hemorrhagic telangiectasia) (Chronic) Hospital Course and Treatment Dr. Rodriguez- general surgery Operations: None Summary of Care Provided: The patient is a 69 year old M admitted 12/02/2019 due to melanotic stools. 1. Acute upper GI bleed-stool positive for occult blood. General surgery consulted. Hemoglobin reduced from baseline however has remained stable during admission. He has not had further stool during admission and requesting to go home. Recommend repeat CBC in 2 days by primary care provider. Patient will follow-up with Dr. Rodriguez as outpatient for upper endoscopy. Call office for follow-up. 2. HHT-treatment/follow-up per above. 3. Hypertension-stable, continue amlodipine, hydrochlorothiazide, losartan. 4. Hyperlipidemia- continue statin. Patient seen and examined prior to discharge. Physical assessment as noted below. Patient is stable for discharge with follow up recommendations as noted above. This patient was seen by SERG Velazquez under the supervision of Dr. Lazo. - Physical Exam Vitals/I&O's: Vital Signs Temp Pulse Resp BP Pulse Ox 98.1 F 79 16 135/85 H 96 12/03/19 09:24 12/03/19 09:24 12/03/19 09:24 12/03/19 09:24 12/03/19 09:24 Oxygen Delivery Method Room Air Weight: 196 lb 3.382 oz Body Mass Index (BMI) 29.0 Intake and Output for Last 24 Hours 12/01/19 12/02/19 12/03/19 23:59 23:59 23:59 Intake Total 895 / 895 2028.17 / 2028.17 Balance 895 / 895 General: Alert, Oriented x3, Cooperative HEENT: Atraumatic, PERRLA, EOMI, Normocephalic Neck: Supple, No JVD, Negative Carotid Bruits Lungs: Clear to auscultation, Normal air movement Cardiovascular: Regular rate, No murmurs Abdomen: Bowel Sounds Present, Soft, Non Tender Extremities: No edema, Capillary Refill Less than 3 Seconds Skin: No rashes, No breakdown Musculoskeletal: No Tenderness to Palpation of Joints or Extremities Neurological: Cranial nerves II-XII grossly intact, Neuro grossly intact Psych/Mental Status: Normal Affect, Appropriate Microbiology Past 72 Hours 12/02/19 15:10 Stool Stool Occult Blood (CHAPO) - Final Occult Blood Positive Laboratory Results 12/02/19 14:15: WBC 7.0, RBC 2.91 L, Hgb 9.2 L, Hct 27.7 L, MCV 95.2 H, MCH 31.6, MCHC 33.2, RDW Std Deviation 43.6, RDW Coeff of [place] 13.0, Plt Count 242, MPV 9.1, Immature Gran % (Auto) 0.600, Neut % (Auto) 74.0 H, Lymph % (Auto) 15.7 L, [place] % (Auto) 8.0, Eos % (Auto) 1.1, Baso % (Auto) 0.6, Absolute Neuts (auto) 5.2, Absolute Lymphs (auto) 1.10, Nucleated RBC % 1.0 12/02/19 14:15: PT 12.5, INR 1.0, APTT 26.3 12/02/19 14:15: Sodium 142, Potassium 3.8, Chloride 107, Carbon Dioxide 28.0, Anion Gap 7, BUN 23 H, Creatinine 0.90, Estim Creat Clear Calc 75.28, Est GFR (MDRD) Af Amer 107, Est GFR (MDRD) Non-Af 89, BUN/Creatinine Ratio 25.6 H, Glucose 104, Calcium 8.4 L 12/02/19 14:15: Blood Type O POSITIVE, Antibody Screen NEGATIVE 12/03/19 05:59: WBC 4.8, RBC 2.66 L, Hgb 8.2 L, Hct 25.3 L, MCV 95.1 H, MCH 30.8, MCHC 32.4, RDW Std Deviation 44.0 H, RDW Coeff of [place] 13.1, Plt Count 195, MPV 8.6, Immature Gran % (Auto) 0.400, Neut % (Auto) 66.2, Lymph % (Auto) 20.1, [place] % (Auto) 9.8, Eos % (Auto) 2.7, Baso % (Auto) 0.8, Absolute Neuts (auto) 3.2, Absolute Lymphs (auto) 0.96, Nucleated RBC % 0.6 12/03/19 05:59: Sodium 140, Potassium 3.8, Chloride 105, Carbon Dioxide 29.0, Anion Gap 6, BUN 14, Creatinine 0.82, Estim Creat Clear Calc 82.63, Est GFR (MDRD) Af Amer 119, Est GFR (MDRD) Non-Af 98, BUN/Creatinine Ratio 17.0, Glucose 104, Calcium 8.2 L, Magnesium 2.3 Current Medications Acetaminophen (Tylenol) 650 mg PO Q6H PRN PRN PRN Reason: Pain Score 1-10/Temp > 100.7 F Al Hydroxide/Mg Hydroxide (Mylanta Ii) 30 ml PO Q6H PRN PRN PRN Reason: Gastric Burning Albuterol Sulfate (Ventolin Aerosols) 2.5 mg INHALATION Q2H PRN PRN PRN Reason: SOB/Wheezing Amlodipine Besylate (Norvasc) 10 mg PO DAILY [facility] Last Admin: 12/03/19 09:28 Dose: 10 mg Documented by: Atorvastatin Calcium (Lipitor) 40 mg PO QHS [facility] Last Admin: 12/02/19 21:47 Dose: 40 mg Documented by: Calcium/Vitamin D (Os-Ko 500mg + D) 1 tablet PO DAILY@1200 [facility] Ferrous Sulfate (Ferrous Sulfate) 325 mg PO BIDCM [facility] Last Admin: 12/03/19 07:35 Dose: 325 mg Documented by: Folic Acid (Folic Acid) 1 mg PO DAILY@0800 [facility] Last Admin: 12/03/19 07:35 Dose: 1 mg Documented by: Guaifenesin (Robitussin) 20 ml PO Q4H PRN PRN PRN Reason: COUGH Hydrochlorothiazide (Hctz) 25 mg PO DAILY [facility] Last Admin: 12/03/19 09:28 Dose: 25 mg Documented by: Lactated Ringer's () 1,000 mls @ 125 mls/hr IV .Q8H [facility] Last Admin: 12/03/19 09:26 Dose: 125 mls/hr Documented by: Pantoprazole Sodium 80 mg/ (Sodium Chloride) 100 mls @ 10 mls/hr CONT INF Q10H [facility] Last Admin: 12/03/19 05:11 Dose: 10 mls/hr Documented by: Loratadine (Claritin) 10 mg PO DAILY PRN PRN PRN Reason: Allergies Losartan Potassium (Cozaar) 100 mg PO DAILY [facility] Last Admin: 12/03/19 09:28 Dose: 100 mg Documented by: Multivitamins (Multivitamin) 1 tablet PO DAILY@0800 [facility] Last Admin: 12/03/19 07:35 Dose: 1 tablet Documented by: Nitroglycerin (Nitrostat) 0.4 mg SUBLINGUAL Q5M PRN PRN Reason: CARDIAC/CHEST PAIN Ondansetron HCl (Zofran) 4 mg IV Q8H PRN PRN PRN Reason: NAUSEA/VOMITING Oxycodone HCl (Oxyir) 5 mg PO Q4H PRN PRN PRN Reason: Pain Score 4-5/10 Promethazine HCl (Phenergan) 25 mg IM Q6H PRN PRN PRN Reason: Breakthrough Nausea/Vomiting Senna/Docusate Sodium (Senokot-S, Veronica-Colace) 2 tablet PO BID PRN PRN PRN Reason: Constipation Sodium Chloride () 10 - 40 ml IV UD PRN PRN Reason: SALINE FLUSH Last Admin: 12/02/19 17:47 Dose: 10 ml Documented by: Discharge Diet: Light diet - advance as tolerated Discharge Activity: Return to Normal Activity Call your doctor if you observe: Shortness of breath, Dizziness, Fainting spells, Chest pain Home Medications: Medications to take at Discharge calcium carbonate 500 mg (1,250 mg)-vitamin D3 200 unit tablet 1 tab PO DAILY tab 07/06/18 ferrous sulfate 325 mg (65 mg iron) tablet 325 mg PO BID tab 07/06/18 folic acid 800 mcg tablet 0.8 mg PO DAILY 07/06/18 multivitamin 1 tab PO DAILY 07/06/18 amlodipine 10 mg tablet 10 mg PO DAILY #90 tab 08/11/19 hydrochlorothiazide 25 mg tablet 25 mg PO DAILY #90 tab 09/25/19 losartan 100 mg tablet 100 mg PO DAILY #90 tab 09/25/19 atorvastatin 40 mg tablet 40 mg PO QHS 10/12/19 Cetirizine HCl [Zyrtec] 10 mg PO PRN PRN 12/02/19 Pantoprazole Sodium [Protonix] 40 mg PO BID #60 tab 12/03/19 Following Prescriptions Were Given to Patient: Pantoprazole Sodium [Protonix] 40 mg PO BID #60 tab Transmission Status: Received by [id number] Primary Care Physician: Art Hadley MD [Primary Care Provider] - Please follow up with your Primary Care Physician in: 1 Week Please Follow Up With: Primo Rodriguez MD When: Call for outpatient scope Disposition: Home Minutes spent on discharge:: 35 Patient Condition:: Stable Medical Necessity - Tobacco Use Smoking Status: Never smoker Meaningful Use Info Meaningful Use Diagnoses (Choose all that apply): None applicable <Marlon Lazo - Last Filed: 12/03/19 13:00> Discharge Date and Diagnosis - Secondary Discharge Diagnosis Chronic Problems: Chronic Problems (Last Reviewed 12/03/19 @ 08:[address] Primo Rodriguez MD) Palpitations (Chronic) Essential (primary) hypertension (Chronic) Hyperlipidemia (Chronic) Secondary pulmonary arterial hypertension (Chronic) HHT (hereditary hemorrhagic telangiectasia) (Chronic) Hospital Course and Treatment Summary of Care Provided: This patient was seen in conjunction with SERG Velazquez . I have independently interviewed and examined the patient and reviewed pertinent historical, laboratory, and other data. Please refer to SERG Velazquez note for details of this patient's presentation, findings, and recommendations. I have reviewed SERG Velazquez note and concur with documented findings. Patient is a 69-year-old gentleman with past medical history sent in for hereditary hemorrhagic telangiectasia presented with melena 1. Acute GI bleed 2. HHT (hereditary hemorrhagic telangiectasia) 3. Hypertension 4. Dyslipidemia Hospital course: As documented above - Physical Exam Vitals/I&O's: Vital Signs Temp Pulse Resp BP Pulse Ox 98.1 F 79 16 135/85 H 96 12/03/19 09:24 12/03/19 09:24 12/03/19 09:24 12/03/19 09:24 12/03/19 09:24 Oxygen Delivery Method Room Air Weight: 89 kg Body Mass Index (BMI) 29.0 Intake and Output for Last 24 Hours 12/01/19 12/02/19 12/03/19 23:59 23:59 23:59 Intake Total 895 / 895 2451.75 / 2451.75 Balance 895 / 895 2451.75 / 2451.75 Microbiology Past 72 Hours 12/02/19 15:10 Stool Stool Occult Blood (CHAPO) - Final Occult Blood Positive Laboratory Results 12/02/19 14:15: WBC 7.0, RBC 2.91 L, Hgb 9.2 L, Hct 27.7 L, MCV 95.2 H, MCH 31.6, MCHC 33.2, RDW Std Deviation 43.6, RDW Coeff of [place] 13.0, Plt Count 242, MPV 9.1, Immature Gran % (Auto) 0.600, Neut % (Auto) 74.0 H, Lymph % (Auto) 15.7 L, [place] % (Auto) 8.0, Eos % (Auto) 1.1, Baso % (Auto) 0.6, Absolute Neuts (auto) 5.2, Absolute Lymphs (auto) 1.10, Nucleated RBC % 1.0 12/02/19 14:15: PT 12.5, INR 1.0, APTT 26.3 12/02/19 14:15: Sodium 142, Potassium 3.8, Chloride 107, Carbon Dioxide 28.0, Anion Gap 7, BUN 23 H, Creatinine 0.90, Estim Creat Clear Calc 75.28, Est GFR (MDRD) Af Amer 107, Est GFR (MDRD) Non-Af 89, BUN/Creatinine Ratio 25.6 H, Glucose 104, Calcium 8.4 L 12/02/19 14:15: Blood Type O POSITIVE, Antibody Screen NEGATIVE 12/03/19 05:59: WBC 4.8, RBC 2.66 L, Hgb 8.2 L, Hct 25.3 L, MCV 95.1 H, MCH 30.8, MCHC 32.4, RDW Std Deviation 44.0 H, RDW Coeff of [place] 13.1, Plt Count 195, MPV 8.6, Immature Gran % (Auto) 0.400, Neut % (Auto) 66.2, Lymph % (Auto) 20.1, [place] % (Auto) 9.8, Eos % (Auto) 2.7, Baso % (Auto) 0.8, Absolute Neuts (auto) 3.2, Absolute Lymphs (auto) 0.96, Nucleated RBC % 0.6 12/03/19 05:59: Sodium 140, Potassium 3.8, Chloride 105, Carbon Dioxide 29.0, A nion Gap 6, BUN 14, Creatinine 0.82, Estim Creat Clear Calc 82.63, Est GFR (MDRD) Af Amer 119, Est GFR (MDRD) Non-Af 98, BUN/Creatinine Ratio 17.0, Glucose 104, Calcium 8.2 L, Magnesium 2.3 Inpatient E&M: [id number] Disch Hosp
== END 2019-12-03 12:22 | disposition home or self-care (01) | DRG 378 ==
LOC: ED 14:28 → PCU 17:03
PROVIDERS: Admitting Provider Internal Medicine; Emergency Provider Emergency Medicine; PCP Family Medicine; Visit Provider Internal Medicine
DX: K92.2 Gastrointestinal hemorrhage, unspecified (principal); D62 Acute posthemorrhagic anemia; I10 Essential (primary) hypertension; E78.5 Hyperlipidemia, unspecified; I78.0 Hereditary hemorrhagic telangiectasia; I27.21 Secondary pulmonary arterial hypertension; K21.9 Gastro-esophageal reflux disease without esophagitis; K76.0 Fatty (change of) liver, not elsewhere classified; E66.9 Obesity, unspecified; I36.1 Nonrheumatic tricuspid (valve) insufficiency; Z68.29 Body mass index [BMI] 29.0-29.9, adult; Z90.79 Acquired absence of other genital organ(s); Z85.46 Personal history of malignant neoplasm of prostate; Z79.899 Other long term (current) drug therapy
CPT/HCPCS: 36415; 80048; 82274; 83735; 85025; 85610; 85730; 86850; 86900; 86901; 93005; 99284; J7120; A4216; J3490

== ENCOUNTER → 2019-12-05 09:58 | Outpatient (CLI) | payer OTHER, MEDICARE, SELFPAY ==
[2019-12-04 08:23] VITALS: BMI 29.0
[2019-12-05 12:29] LABS: Absolute Lymphocyte Count 0.88 X10^3/uL (0.83-4.51); Absolute Neutrophil Count 3.7 X10^3/uL (2.0-7.7); Basophil# 0.05 X10^3/uL; Basophil% 0.9 % (0-1); Eosinophil# 0.15 X10^3/uL; Eosinophils% 2.8 % (0-5); Hematocrit 29.1 % (40-54); Hemoglobin 9.4 g/dL (13.0-16.5); Lymphocyte # 0.88 X10^3/ul (4.0); Lymphocyte % 16.4 % (19-41); Mean Corp Hgb Conc 32.3 g/dL (32-36); Mean Platelet Vol. 9.3 fl (6.2-12.0); Monocyte# 0.51 X10^3/uL; Monocyte% 9.5 % (0-10); NRBC Flagged by Analyzer 0.9 % (0-5); Neutrophil # 3.71 X10^3/uL (2.7-7.7); Neutrophil % 69.5 % (47-70); Platelet Count 269 K/mm3 (150-450); RBC Distribution Width CV 14.6 % (11.6-14.6); RBC Distribution Width SD 46.2 fl (35.1-43.9); Red Blood Count 2.94 M/mm3 (4.6-6.2); White Blood Count 5.4 K/mm3 (4.4-11.0)
== END ==
PROVIDERS: PCP Family Medicine; Visit Provider Family Medicine
DX: K92.2 Gastrointestinal hemorrhage, unspecified (principal)
CPT/HCPCS: 36415; 85025

== ENCOUNTER 2019-12-20 07:44 | Day surgery (SDC) | payer OTHER, SELFPAY ==
[2019-12-06 14:17] VITALS: BMI 29.0
--- NOTE | 2019-12-20 | GASB_PTH ---
PATIENT: CABRERA PARRY LOC: EN U#:[id number] AGE/SX: 69/M ROOM: RE12/20/[address]: Dr. Primo Rodriguez MD : 1950 BED: DIS: 12/20/2019 SPEC #: [id number] RECD: 12/20/19 12:17 STATUS: CARLOS MYAH #: [id number] AL: 12/20/19 00:[address]: Primo Rodriguez DEPT: SURGICAL PATHOLOGY RECD BY: Zachariah Willard ENTERED: 12/20/19 12:17 SP TYPE: Gastric Bx OTHR DR: Dr. Art Hadley MD Tissues: Gastric mucous membrane Procedures: Surgery Specimen Level IV HEADER OPERATION: E[place] [place] PRE-OP DIAGNOSIS: GI bleed TISSUE SUBMITTED: Antrum biopsy for histo and H. pylori MICROSCOPIC DIAGNOSIS Antrum biopsy: Mild gastritis. See microscopic description and comment. SJ:shani 9/3/20 COMMENT The results of immunohistochemistry for Helicobacter pylori will be reported separately ([id number]). MICROSCOPIC DESCRIPTION Slides are reviewed. The specimen shows fragments of gastric mucosa with chronic inflammatory cell infiltrates in the lamina propria consisting of lymphocytes and plasma cells, consistent with mild chronic gastritis. GROSS DESCRIPTION Received in fixative is one container labeled with the patient's name and designated antrum biopsy. The specimen consists of two irregular fragments of light baeza soft tissue that in aggregate measure 0.5 x 0.2 x 0.1 cm. The specimen is totally submitted in one cassette. / SJ:rg 12/20/19 TC:3 CPT: 02850
[2019-12-20 08:04] VITALS: BP 136/81; PULSE 81; RESP 16; TEMP 36.2; O2SAT 97; BMI 29.5
[2019-12-20] MEDS: Lactated Ringers 1,000 ML 100 ML IV (08:08)
--- NOTE | 2019-12-20 08:45 | IMM_PTH ---
PATIENT: CABRERA PARRY LOC: EN U#:[id number] AGE/SX: 69/M ROOM: RE12/20/[address]: Dr. Primo Rodriguez MD : 1950 BED: DIS: 12/20/2019 SPEC #: [id number] RECD: 12/20/19 13:28 STATUS: CARLOS REMark #: [id number] AL: 12/20/19 08:[address]: Primo Rodriguez DEPT: IMMUNOHISTOCHEMISTRY RECD BY: Monique Jones ENTERED: 12/20/19 13:28 SP TYPE: IMMUNO OTHR DR: Dr. Art Hadley MD Tissues: Stomach, NOS Procedures: H Pylori (initial) PHYSICIAN & INSTITUTION [place] [id number] SPECIMEN INFORMATION: Tissue Source: Antrum biopsy Clinical Info: GI bleed Specimen Number: [id number] CPT code: 23601 METHODOLOGY: Deparaffinized sections of prefer/formalin-fixed tissue or PAP/DQ stained slides are incubated with monoclonal/polyclonal antibodies/oligonucleotide probes. Localization is made via biotin free immunoperoxidase method. Appropriate controls are performed and reacted as expected. Results on target cell population are indicated in the following table: RESULTS: ANTIBODY / CLONE RESULT H Pylori (polyclonal) negative These tests were developed and their performance characteristics determined by [facility]. They may not have been cleared or approved by the U.[place]. Food and Drug Administration. The FDA has determined that such clearance or approval is not necessary. INTERPRETATION: Antrum biopsy: Negative for Helicobacter pylori organisms. MARILYN:shani 12/22/19
[2019-12-20 08:50] VITALS: BP 136/81; BP 87/51; PULSE 72; RESP 16; TEMP 36.4; O2SAT 94
[2019-12-20 08:56] VITALS: BP 101/68; BP 136/81; PULSE 73; RESP 17; O2SAT 93
--- NOTE | 2019-12-20 08:58 | OP.EGD_ITS ---
Patient Name: Harley Goldman Procedure Date: 12/20/2019 8:34 AM Date of : 1950 Age: 69 Procedure: Upper GI endoscopy Indications: Recent gastrointestinal bleeding Providers: Primo Rodriguez MD Referring MD: Art Hadley Medicines: See the Anesthesia note for documentation of the administered medications Patient Profile: This is a 69 year old male. Refer to note in patient chart for documentation of history and physical. Complications: No immediate complications. Procedure: Pre-Anesthesia Assessment: - Prior to the procedure, a History and Physical was performed, and patient medications and allergies were reviewed. The patient's tolerance of previous anesthesia was also reviewed. The risks and benefits of the procedure and the sedation options and risks were discussed with the patient. All questions were answered, and informed consent was obtained. Prior Anticoagulants: The patient has taken no previous anticoagulant or antiplatelet agents. ASA Grade Assessment: II - A patient with mild systemic disease. After reviewing the risks and benefits, the patient was deemed in satisfactory condition to undergo the procedure. After obtaining informed consent, the endoscope was passed under direct vision. Throughout the procedure, the patient's blood pressure, pulse, and oxygen saturations were monitored continuously. The gastroscope was introduced through the mouth, and advanced to the second part of duodenum. The upper GI endoscopy was accomplished without difficulty. The patient tolerated the procedure well. Scope In: 8:41:41 AM Scope Out: 8:44:24 AM Total Procedure Duration Time 0 hours 2 minutes 43 seconds Findings: The examined esophagus was normal. No biopsies or other specimens were collected for this exam. HHT, Biopsies were taken with a cold forceps for Helicobacter pylori testing. HHT, No biopsies or other specimens were collected for this exam. Localized mild inflammation characterized by linear erosions was found in the prepyloric region of the stomach. Impression: - Normal esophagus. No specimens collected. Recommendation: - Discharge patient to home. - Resume previous diet. - Continue present medications. - Await pathology results. - Repeat upper endoscopy PRN for surveillance. - Return to my office in 1 week. Procedure Code(s): --- Professional --- 50952, Esophagogastroduodenoscopy, flexible, transoral; with biopsy, single or multiple Diagnosis Code(s): --- Professional --- K92.2, Gastrointestinal hemorrhage, unspecified CPT copyright 2017 [employer]. All rights reserved. The codes documented in this report are preliminary and upon salt refiner review may be revised to meet current compliance requirements. MD Primo Rae MD 12/20/2019 8:58:17 AM This report has been signed electronically. Number of Addenda: 0 Note Initiated On: 12/20/2019 8:34 AM
--- NOTE | 2019-12-20 08:59 | OP.CCLET_ITS ---
12/20/2019 Art Hadley Re : Upper GI endoscopy procedure for Harley Goldman Dealudy Jomar This procedure was performed on Friday, December 20, 2019. My impressions and recommendations are as follows: Impressions : - Normal esophagus. No specimens collected. Recommendations : - Discharge patient to home. - Resume previous diet. - Continue present medications. - Await pathology results. - Repeat upper endoscopy PRN for surveillance. - Return to my office in 1 week. My findings are described in the full procedure note, which is enclosed. If I can be of further assistance, please feel free to contact me at Doctor phone number(s): , Fax: [phone], Work: . Sincerely, MD Primo Rae MD 12/20/2019 8:58:17 AM This report has been signed electronically.
[2019-12-20 09:00] VITALS: BP 102/71; BP 136/81; PULSE 73; RESP 16; O2SAT 93
[2019-12-20 09:05] VITALS: BP 116/76; BP 136/81; PULSE 73; RESP 16; TEMP 36.5; O2SAT 95
[2019-12-20 09:37] VITALS: BP 136/81
--- NOTE | 2019-12-20 09:40 | HP_ITS ---
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 Primo Rodriguez MD) Smoking Status: Never smoker alcohol intake: current alcohol intake frequency: 0-2 drinks per day Alcohol type: hard liquor HPI HPI Surgical H&P: Yes HPI: Harley PARRY, is a 69 M who presents to the office today for Upper endoscopy. The patient is a 69 year old M with past medical history single for hypertension, HHT (hereditary hemorrhagic telangiectasia) who presented with melena. Patient symptoms started a day prior to patient coming in. In addition to patient melena patient did experience lightheadedness. In view of the persistent nature of his symptoms he presented to the emergency department. Hemoglobin in the ED was 9.2. Patient was started on Protonix drip Patient has had no further bowel movements while being in the hospital. He no longer feels orthostatic. ROS General General: No weight change, appetite, fatigue, colon cancer, breast cancer or weakness HEENT HEENT: No difficulty swallowing, eye injury, eye surgery, swollen glands or hoarseness Endo Endocrine: No thyroid disease, diabetes mellitus, thyroid cancer, Hair loss, heat intolerance or cold intolerance Skin Skin: No rash or changing moles Breast Breast: No left breast lump, right breast lump, nipple discharge, breast pain, abnormal mammogram, abnormal US or breast enlargement Musc Musculoskeletal: No back problems, arthritis, rheumatoid arthritis, gout or joint pain Cardio Cardiovascular: Yes high blood pressure; no murmur, pacemaker, heart disease, atrial fibrillation, heart attack, heart stent, palpitations, shortness of breat with exertion or chest pain Additional Details: High Cholesterol Psych Psychiatric: No depression, anxiety or hearing voices Resp Respiratory: Yes shortness of breath, No sleep apnea, No cough, No COPD, No asthma, No emphysema, No wheezing Gastro Gastrointestinal: Yes abdominal pain, No nausea or vomiting, No diarrhea, No constipation, Yes blood in stool, Yes acid reflux, No hemorrhoids, No ulcers, No gallbladder problem, Yes black,tarry stools Jake Hematologic: No blood thinners, No blood disorders, No bleeding, Yes anemia, No blood clots Neuro Neurologic: No system reviewed and no additional complaints, except as docu, No as per HPI, No abnormal walking, No abnormal hearing, No abnormal movements, No abnormal speech, No behavioral changes, No burning sensations, No confusion, No seizure-like activity, No unsteadiness, No dizziness, No localized weakness, No frequent falls, No headache(s), No lack of coordination, No loss of vision, No memory loss, No numbness, No other visual disturbances, No radiating pain, No restless legs, No sensory deficit, No fainting, No tingling, No tremor(s), No weakness, No other Exam Const General: no acute distress, well developed, well hydrated Orientation: oriented to person, oriented to place, oriented to time [facility] Head: normocephalic, atraumatic Ears: external ears normal Mouth: moist mucous membranes Eyes Sclera: sclerae normal Pupils: normal by confrontation Neck Neck: no lymphadenopathy noted Neck mass: No Thyroid: thyroid normal, symmetrical Chest Chest palpation & inspection: normal inspection of the chest Breast Palpation: No nipple discharge Resp Effort & Inspection: normal respiratory effort Auscultation: clear to auscultation bilaterally Percussion: percussion normal Cardio Rate: regular rate Rhythm: regular rhythm Heart Sounds: no murmurs GI Palpation: soft, no hepatosplenomegaly, no masses, nontender Rectal Exam: other Other: Rectal exam deferred. Extrem General: normal to inspection, no clubbing, cyanosis or edema Assessment & Plan Problems 1. Gastrointestinal hemorrhage, unspecified gastrointestinal hemorrhage type K92.2 Plan I have discussed the above with the patient. I have offered the patient esophagogastroduodenoscopy for evaluation. I have explained the risks/benefits of the procedure and described the procedure. I have discussed the risks with the patient, including but not limited to: infection, bleeding, perforation of the GI tract requiring emergency surgery, inability to complete the procedure, injury to any internal organs, complications of anesthesia, etc. - the patient understands and agrees to proceed. I have answered all the patient's questions to the patient's satisfaction and the patient has no further questions. The patient has been given instructions for the colon cleansing preparation. Coding Level of Care Code Off vis,est,level 3 Diagnoses Gastrointestinal hemorrhage, unspecified gastrointestinal hemorrhage type K92.2 ??GI bleed type/associated pathology: unspecified gastrointestinal hemorrhage type COVID (Procedure Consent) Procedure Criteria Procedure Criteria: Yes Elective The surgeon/proceduralist and patient have discussed in detail the risk of exposure to and/or potential harm posed by the COVID-19 virus with having a surgery/procedure at this time versus the risk of? delaying the surgery/procedure. It is not possible to know either the risk of delaying the surgery or procedure or chance of getting an infection with perfect accuracy, but a joint decision was made between the patient and the surgeon/proceduralist ?to proceed at this time with the scheduled surgery/procedure as indicated on the consent form. I have re-examined the patient. There are no clinical changes since date of exam.
== END 2019-12-20 09:38 | disposition home or self-care (01) ==
LOC: EN 07:44 → AC 07:45
PROVIDERS: PCP Family Medicine; Referring Provider Family Medicine; Visit Provider Surgery
PROC: 0DJ08ZZ Inspection of Upper Intestinal Tract, Via Natural or Artificial Opening Endoscopic (ICD-10-PCS; CPT 43235; principal; 2019-12-20 08:40)
DX: K29.70 Gastritis, unspecified, without bleeding (principal); Z11.59 Encounter for screening for other viral diseases; I78.0 Hereditary hemorrhagic telangiectasia; I10 Essential (primary) hypertension; I27.21 Secondary pulmonary arterial hypertension; K21.9 Gastro-esophageal reflux disease without esophagitis; K76.0 Fatty (change of) liver, not elsewhere classified; D64.9 Anemia, unspecified; E78.00 Pure hypercholesterolemia, unspecified; E66.9 Obesity, unspecified; Z68.29 Body mass index [BMI] 29.0-29.9, adult; Z85.46 Personal history of malignant neoplasm of prostate; Z87.19 Personal history of other diseases of the digestive system; Z79.899 Other long term (current) drug therapy
CPT/HCPCS: 43239; 87635; 88305; 88342; 94799; J7120; J2405; U0003

== ENCOUNTER → 2019-12-27 11:50 | Outpatient (CLI) | payer OTHER, SELFPAY ==
[2019-12-20 08:04] VITALS: BMI 29.5
[2019-12-27 15:22] LABS: Absolute Neutrophil Count 3.1 X10^3/uL (2.0-7.7); Basophil# 0.05 X10^3/uL; Basophil% 1.1 % (0-1); Eosinophil# 0.11 X10^3/uL; Eosinophils% 2.5 % (0-5); Hematocrit 40.7 % (40-54); Hemoglobin 12.9 g/dL (13.0-16.5); Lymphocyte % 15.6 % (19-41); Mean Corp Hgb Conc 31.7 g/dL (32-36); Mean Corpuscular Hgb 31.6 pg (27.0-32.0); Mean Corpuscular Volume 99.8 fL (80-94); Mean Platelet Vol. 9.5 fl (6.2-12.0); Monocyte# 0.56 X10^3/uL; Monocyte% 12.5 % (0-10); NRBC Flagged by Analyzer 0 % (0-5); Neutrophil # 3.05 X10^3/uL (2.7-7.7); Neutrophil % 68.1 % (47-70); Platelet Count 250 K/mm3 (150-450); RBC Distribution Width CV 14.5 % (11.6-14.6); RBC Distribution Width SD 53.1 fl (35.1-43.9); Red Blood Count 4.08 M/mm3 (4.6-6.2); White Blood Count 4.5 K/mm3 (4.4-11.0)
[2019-12-27 16:03] LABS: Ferritin 72 ng/mL (26-388); Iron 60 ug/dL (65-175)
== END ==
PROVIDERS: PCP Family Medicine; Visit Provider Family Medicine
DX: D50.9 Iron deficiency anemia, unspecified (principal)
CPT/HCPCS: 36415; 82728; 83540; 85025

== ENCOUNTER → 2020-05-10 11:35 | Outpatient (CLI) | payer OTHER, SELFPAY ==
[2020-05-10 12:34] LABS: Absolute Lymphocyte Count 0.83 X10^3/uL (0.83-4.51); Absolute Neutrophil Count 4.4 X10^3/uL (2.0-7.7); Basophil# 0.07 X10^3/uL; Basophil% 1.2 % (0-1); Eosinophil# 0.14 X10^3/uL; Eosinophils% 2.3 % (0-5); Hematocrit 31.4 % (40-54); Hemoglobin 9.4 g/dL (13.0-16.5); Lymphocyte # 0.83 X10^3/ul (4.0); Lymphocyte % 13.7 % (19-41); Mean Corp Hgb Conc 29.9 g/dL (32-36); Mean Corpuscular Hgb 29.7 pg (27.0-32.0); Mean Corpuscular Volume 99.4 fL (80-94); Mean Platelet Vol. 8.7 fl (6.2-12.0); Monocyte# 0.52 X10^3/uL; Monocyte% 8.6 % (0-10); NRBC Flagged by Analyzer 0 % (0-5); Neutrophil # 4.44 X10^3/uL (2.7-7.7); Neutrophil % 73.5 % (47-70); Platelet Count 424 K/mm3 (150-450); RBC Distribution Width CV 15.6 % (11.6-14.6); RBC Distribution Width SD 55.3 fl (35.1-43.9); Red Blood Count 3.16 M/mm3 (4.6-6.2)
[2020-05-10 13:49] LABS: Iron 69 ug/dL (65-175)
== END ==
PROVIDERS: PCP Family Medicine; Referring Provider Family Medicine; Visit Provider Family Medicine
DX: I78.0 Hereditary hemorrhagic telangiectasia (principal); K92.2 Gastrointestinal hemorrhage, unspecified
CPT/HCPCS: 36415; 83540; 85025

== ENCOUNTER 2020-06-20 09:08 | Outpatient (RCR) | payer OTHER, SELFPAY ==
[2020-06-20] MEDS: COVID-19 VACC, MRNA(PFIZER)/PF 30 MCG/0.3 ML SYRINGE IM (18:22)
[2020-07-11] MEDS: COVID-19 VACC, MRNA(PFIZER)/PF 30 MCG/0.3 ML SYRINGE IM (17:48)
== END 2020-09-24 23:59 ==
LOC: IMMUN 09:08
PROVIDERS: PCP Family Medicine; Visit Provider Family Medicine
DX: Z23 Encounter for immunization (principal)
CPT/HCPCS: 0001A; 0002A; 91300

== ENCOUNTER → 2020-09-24 08:01 | Outpatient (CLI) | payer OTHER, SELFPAY ==
[2020-09-24 09:40] LABS: PSA,Total- Diagnostic < 0.01 ng/mL (0.0-4.0)
== END ==
PROVIDERS: PCP Family Medicine
DX: C61 Malignant neoplasm of prostate (principal)
CPT/HCPCS: 36415; 84153

== ENCOUNTER → 2022-06-29 | Outpatient (CLI) | payer OTHER, SELFPAY ==
[2022-06-29 12:45] LABS: Absolute Lymphocyte Count 0.64 X10^3/uL (0.83-4.51); Absolute Neutrophil Count 3.3 X10^3/uL (2.0-7.7); Basophil# 0.07 X10^3/uL; Basophil% 1.5 % (0-1); Eosinophil# 0.22 X10^3/uL; Eosinophils% 4.6 % (0-5); Hematocrit 38.6 % (40-54); Hemoglobin 12.8 g/dL (13.0-16.5); Lymphocyte # 0.64 X10^3/ul (0.83-4.51); Lymphocyte % 13.3 % (19-41); Mean Corp Hgb Conc 33.2 g/dL (32-36); Mean Corpuscular Hgb 33.2 pg (27.0-32.0); Mean Corpuscular Volume 100.3 fL (80-94); Mean Platelet Vol. 9.6 fl (6.2-12.0); Monocyte# 0.57 X10^3/uL; Monocyte% 11.9 % (0-10); NRBC Flagged by Analyzer 0 % (0-5); Neutrophil # 3.28 X10^3/uL (2.7-7.7); Neutrophil % 68.3 % (47-70); Platelet Count 254 K/mm3 (150-450); RBC Distribution Width CV 12.8 % (11.6-14.6); RBC Distribution Width SD 47.2 fl (35.1-43.9); Red Blood Count 3.85 M/mm3 (4.6-6.2); White Blood Count 4.8 K/mm3 (4.4-11.0)
[2022-06-29 12:47] LABS: Ferritin 86 ng/mL (26-388); Iron 139 ug/dL (65-175)
== END | disposition home or self-care (01) ==
LOC: BFHLAB 09:19
PROVIDERS: PCP Family Medicine; Visit Provider Family Medicine
DX: D64.9 Anemia, unspecified (principal)
CPT/HCPCS: 36415; 82728; 83540; 85025

== ENCOUNTER → 2022-10-27 | Outpatient (CLI) | payer OTHER, SELFPAY ==
[2022-10-27 12:21] LABS: Absolute Lymphocyte Count 0.78 X10^3/uL (0.83-4.51); Absolute Neutrophil Count 3.6 X10^3/uL (2.0-7.7); Basophil# 0.05 X10^3/uL; Eosinophil# 0.18 X10^3/uL; Eosinophils% 3.5 % (0-5); Hematocrit 39.5 % (40-54); Lymphocyte # 0.78 X10^3/ul (0.83-4.51); Lymphocyte % 15.1 % (19-41); Mean Corp Hgb Conc 32.9 g/dL (32-36); Mean Corpuscular Hgb 30.2 pg (27.0-32.0); Mean Corpuscular Volume 91.6 fL (80-94); Monocyte# 0.53 X10^3/uL; Monocyte% 10.2 % (0-10); NRBC Flagged by Analyzer 0 % (0-5); Neutrophil # 3.63 X10^3/uL (2.7-7.7); Platelet Count 242 K/mm3 (150-450); RBC Distribution Width CV 13.1 % (11.6-14.6); RBC Distribution Width SD 43.2 fl (35.1-43.9); Red Blood Count 4.31 M/mm3 (4.6-6.2); White Blood Count 5.2 K/mm3 (4.4-11.0)
== END | disposition home or self-care (01) ==
LOC: BFHLAB 10:14
PROVIDERS: PCP Family Medicine; Referring Provider Family Medicine; Visit Provider Family Medicine
DX: R19.7 Diarrhea, unspecified (principal)
CPT/HCPCS: 36415; 83630; 85025; 87177; 87209; 87493; 87506

== ENCOUNTER → 2022-12-16 | Outpatient (CLI) | payer OTHER, SELFPAY ==
[2022-12-16 18:31] LABS: CRP < 2.90 mg/L (0.0-3.0)
[2022-12-18 15:08] LABS: Endomysial Antibody IgA Negative (Negative); Immunoglobulin A 199 mg/dL (61-437); t-Transglutaminase IgA <2 U/mL (0-3)
== END | disposition home or self-care (01) ==
LOC: MTLAB 15:44
PROVIDERS: PCP Family Medicine; Referring Provider Internal Medicine Gastroenterology; Visit Provider Internal Medicine Gastroenterology
DX: R19.7 Diarrhea, unspecified (principal)
CPT/HCPCS: 36415; 82784; 83516; 86140; 86255

== ENCOUNTER → 2022-12-17 | Outpatient (CLI) | payer OTHER, SELFPAY ==
[2022-12-23 16:09] LABS: Calprotectin, Stool 124 ug/g (0-120)
== END | disposition home or self-care (01) ==
LOC: LAB 07:50
PROVIDERS: PCP Family Medicine; Referring Provider Internal Medicine Gastroenterology; Visit Provider Internal Medicine Gastroenterology
DX: R19.7 Diarrhea, unspecified (principal)
CPT/HCPCS: 83993

== ENCOUNTER → 2022-12-23 | Outpatient (CLI) | payer OTHER, SELFPAY ==
[2022-12-23 09:09] LABS: Absolute Lymphocyte Count 0.63 X10^3/uL (0.83-4.51); Basophil# 0.04 X10^3/uL; Basophil% 0.9 % (0-1); Eosinophil# 0.06 X10^3/uL; Eosinophils% 1.4 % (0-5); Hematocrit 38.4 % (40-54); Hemoglobin 12.5 g/dL (13.0-16.5); Lymphocyte # 0.63 X10^3/ul (0.83-4.51); Lymphocyte % 14.5 % (19-41); Mean Corp Hgb Conc 32.6 g/dL (32-36); Mean Corpuscular Hgb 31.1 pg (27.0-32.0); Mean Corpuscular Volume 95.5 fL (80-94); Mean Platelet Vol. 9.6 fl (6.2-12.0); Monocyte# 0.56 X10^3/uL; Monocyte% 12.9 % (0-10); NRBC Flagged by Analyzer 0 % (0-5); Neutrophil # 3.02 X10^3/uL (2.7-7.7); Neutrophil % 69.8 % (47-70); Platelet Count 193 K/mm3 (150-450); RBC Distribution Width CV 14.3 % (11.6-14.6); RBC Distribution Width SD 50.4 fl (35.1-43.9); Red Blood Count 4.02 M/mm3 (4.6-6.2); White Blood Count 4.3 K/mm3 (4.4-11.0)
[2022-12-23 09:59] LABS: ALB/GLOB Ratio 0.9 RATIO (0.9-2.4); AST(SGOT) 18 U/L (15-37); Alanine Aminotransfer ALT/SGPT 16 U/L (16-61); Albumin, Serum 3.6 g/dL (3.2-5.0); Alkaline Phosphatase 70 U/L (45-117); Anion Gap 10 (5-15); BUN 15 mg/dL (7-18); BUN/Creat Ratio 19.3 RATIO (10-20); Calcium,Total 8.4 mg/dL (8.5-10.1); Chloride 102 mmol/L (98-107); Cholesterol 148 mg/dL (200); Creatinine, Serum 0.78 mg/dL (0.70-1.30); EST Glomerular Filtration Rate 104 mL/min (>60); Est Glom Filt Rate - Afr Amer 126 mL/min (>60); Globulin 3.8 g/dL (2.2-4.2); Glucose 99 mg/dL (74-106); High Density Lipoprotein 55 mg/dL; PSA,Total - Annual Screen < 0.01 ng/mL (0.00-4.00); Potassium 3.4 mmol/L (3.5-5.1); Protein, Total 7.4 g/dL (6.4-8.2); Sodium Level 137 mmol/L (136-145); Triglycerides 117 mg/dL; Very Low Density Lipoprotein 23 mg/dL (5-40)
== END | disposition home or self-care (01) ==
LOC: LAB 07:20
PROVIDERS: PCP Family Medicine; Referring Provider Family Medicine; Visit Provider Family Medicine
DX: I10 Essential (primary) hypertension (principal); E78.5 Hyperlipidemia, unspecified; K76.0 Fatty (change of) liver, not elsewhere classified; K92.2 Gastrointestinal hemorrhage, unspecified; Z12.5 Encounter for screening for malignant neoplasm of prostate
CPT/HCPCS: 36415; 80053; 80061; 84153; 85025; G0103

== ENCOUNTER → 2023-01-08 | Outpatient (CLI) | payer OTHER, SELFPAY | END | disposition home or self-care (01) | PROVIDERS: PCP Family Medicine; Referring Provider Family Medicine; Visit Provider Family Medicine | DX: I47.1 Supraventricular tachycardia (principal) | CPT/HCPCS: 93225; 93226 ==

== ENCOUNTER → 2023-01-22 | Outpatient (CLI) | payer OTHER, SELFPAY ==
--- NOTE | 2023-01-22 17:42 | STRESSREP ---
Stress Test Report Pharmacologic myocardial perfusion stress test. 72-year-old man with a history of chest discomfort Resting EKG demonstrates sinus rhythm with a rate of 72 bpm. Resting blood pressure is 132/78 mmHg. 0.4 mg of regadenoson was infused per usual protocol followed by rapid intravenous saline flush injection. Continuous EKG monitoring was performed. The maximum heart rate was 96 bpm which was 65% of max impacted heart rate the maximum workload was 1 metabolic equivalent. At rest there were no ST or T wave changes noted to suggest ischemia and at peak infusion nonspecific ST changes were noted which did not meet the criteria for ischemia. No clinical angina is noted. The final blood pressure was 140/80 mmHg. Myocardial perfusion protocol. 14.0 mCi of technetium 99m sestamibi was injected at rest. 0.4 mg of regadenoson was infused per usual protocol. At peak infusion 42.3 mCi of technetium 99m sestamibi was injected stress images were obtained stress and rest images were reconstructed and compared in the short axis vertical long and horizontal long axis. Gated images were also obtained. Perfusion SPECT analysis: Review of the stress images demonstrate normal uptake of tracer noted in all areas of the myocardium. The resting images similar demonstrated normal uptake of tracer noted in all areas of the myocardium. No areas of reversibility are noted to suggest ischemia and no previous infarct is noted. Gated SPECT analysis: The gated ejection fraction is 65%. Conclusion: Normal pharmacologic myocardial perfusion stress test. Preserved ejection fraction.
== END | disposition home or self-care (01) ==
LOC: CVS 06:12
PROVIDERS: PCP Family Medicine; Referring Provider Family Medicine; Visit Provider Family Medicine
DX: R07.9 Chest pain, unspecified (principal); R06.09 Other forms of dyspnea; I47.10 Supraventricular tachycardia, unspecified
CPT/HCPCS: 78452; 93017; A9500; A4216; J2785

== ENCOUNTER → 2023-01-27 | Outpatient (CLI) | payer OTHER, SELFPAY ==
[2023-01-27 15:14] LABS: Anion Gap 6 (5-15); BUN 20 mg/dL (7-18); BUN/Creat Ratio 24.9 RATIO (10-20); Calcium,Total 9.4 mg/dL (8.5-10.1); Chloride 103 mmol/L (98-107); EST Glomerular Filtration Rate 100 mL/min (>60); Est Glom Filt Rate - Afr Amer 121 mL/min (>60); Glucose 83 mg/dL (74-106); Potassium 3.6 mmol/L (3.5-5.1); Sodium Level 138 mmol/L (136-145); Thyroid Stim Hormone (TSH) 1.04 uIU/mL (0.358-3.74)
== END | disposition home or self-care (01) ==
LOC: LAB 12:10
PROVIDERS: PCP Family Medicine; Referring Provider Internal Medicine Cardiovascular Disease; Visit Provider Internal Medicine Cardiovascular Disease
DX: I48.0 Paroxysmal atrial fibrillation (principal); R00.2 Palpitations; I10 Essential (primary) hypertension
CPT/HCPCS: 36415; 80048; 84443

== ENCOUNTER → 2023-02-10 | Outpatient (CLI) | payer OTHER, SELFPAY ==
--- NOTE | 2023-02-10 14:52 | ECHOD_ITS ---
Reason For Study: AFIB Procedure This was a 2D Doppler, Color Flow transthoracic echocardiogram. Exam performed in department. Left Ventricle Normal LV size. Mild concentric left ventricular hypertrophy. The left ventricular ejection fraction is 65 %. Diastolic function is indeterminate. Right Ventricle Normal right ventricle. Atria The left and right atria are normal. Mitral Valve Mild (1+) mitral valve insufficiency. Tricuspid Valve Trivial tricuspid valve insufficiency. Right ventricular systolic pressure estimated to be 38 mmHg. Aortic Valve Trisinus/trileaflet aortic valve. Pulmonic Valve The pulmonic valve is not well visualized. Mild (1+) pulmonic valve insufficiency. Great Vessels Calcified aortic root. Pericardium/Pleural No pericardial effusion. MMode/2D Measurements & Calculations LVIDd: 4.9 cm IVSd: 0.91 cm Ao root diam: 3.8 cm LVIDs: 3.5 cm LVPWd: 1.2 cm RVDd: 3.8 cm FS: 28.3 % LAV(MOD-bp): 84.9 ml LVAd ap4: 31.4 cm2 SV(MOD-sp4): 61.3 ml LAV(MOD-bp) Indexed: 42.8 ml/m2 LVLd ap4: 8.8 cm LAV(MOD-sp2): 74.6 ml EDV(MOD-sp4): 92.7 ml LAV(MOD-sp4): 79.2 ml EDV(sp4-el): 94.9 ml LVAs ap4: 15.8 cm2 LVLs ap4: 7.2 cm ESV(MOD-sp4): 31.4 ml ESV(sp4-el): 29.6 ml EF(MOD-sp4): 66.1 % EF(sp4-el): 68.8 % SV(sp4-el): 65.3 ml LA A4 area: 26.1 cm2 LA dimension(2D): 2.9 cm RA A4 area: 26.4 cm2 TAPSE: 2.7 cm Time Measurements MV dec time: 0.25 sec Doppler Measurements & Calculations MV E max chemo: 76.0 cm/sec Lat Peak E' Chemo: 17.2 cm/sec Med Peak E' Chemo: 8.0 cm/sec MV A max chemo: 68.6 cm/sec E/E' lat: 4.4 E/E' med: 9.5 MV E/A: 1.1 MV V2 max: 89.6 cm/sec Ao V2 max: 192.0 cm/sec MV max P.2 mmHg MV dec slope: 315.9 cm/sec2 Ao max P.8 mmHg MV V2 mean: 64.5 cm/sec Ao V2 mean: 131.5 cm/sec MV mean P.8 mmHg Ao mean P.9 mmHg MV V2 VTI: 30.0 cm Ao V2 VTI: 40.1 cm AV (velocity ratio): 0.69 LV V1 max: 129.6 cm/sec PA V2 max: 113.6 cm/sec TR max chemo: 287.2 cm/sec LV V1 max P.7 mmHg PA V2 mean: 80.5 cm/sec TR max P.0 mmHg LV V1 mean P.8 mmHg LV V1 mean: 89.9 cm/sec LV V1 VTI: 27.8 cm ECHO/Echo Complete Interpretation Summary The left ventricular ejection fraction is 65 %. Diastolic function is indeterminate. Mild (1+) mitral valve insufficiency. Right ventricular systolic pressure estimated to be 38 mmHg. Calcified aortic root. Ordering Physician: Robyn Gillespie Referring Physician: Robyn Gillespie Performed By: Nasrin Hays RCS
== END | disposition home or self-care (01) ==
LOC: CVS 14:51
PROVIDERS: PCP Family Medicine; Referring Provider Internal Medicine Cardiovascular Disease; Visit Provider Internal Medicine Cardiovascular Disease
DX: R00.2 Palpitations (principal); I48.0 Paroxysmal atrial fibrillation; I10 Essential (primary) hypertension
CPT/HCPCS: 93306

== ENCOUNTER → 2024-04-06 | Outpatient (CLI) | payer OTHER, SELFPAY ==
[2024-04-06 07:43] LABS: Absolute Lymphocyte Count 0.89 X10^3/uL (0.83-4.51); Absolute Neutrophil Count 2.7 X10^3/uL (2.0-7.7); Basophil# 0.05 X10^3/uL; Basophil% 1.1 % (0-1); Eosinophil# 0.25 X10^3/uL; Eosinophils% 5.6 % (0-5); Hematocrit 43.3 % (40-54); Hemoglobin 14.7 g/dL (13.0-16.5); Lymphocyte # 0.89 X10^3/ul (0.83-4.51); Lymphocyte % 19.9 % (19-41); Mean Corp Hgb Conc 33.9 g/dL (32-36); Mean Corpuscular Hgb 30.9 pg (27.0-32.0); Mean Corpuscular Volume 91.2 fL (80-94); Mean Platelet Vol. 9.2 fl (6.2-12.0); Monocyte# 0.57 X10^3/uL; Monocyte% 12.7 % (0-10); NRBC Flagged by Analyzer 0 % (0-5); Neutrophil # 2.71 X10^3/uL (2.7-7.7); Neutrophil % 60.5 % (47-70); Platelet Count 182 K/mm3 (150-450); RBC Distribution Width SD 40.1 fl (35.1-43.9); Red Blood Count 4.75 M/mm3 (4.6-6.2); White Blood Count 4.5 K/mm3 (4.4-11.0)
[2024-04-06 08:28] LABS: AST(SGOT) 21 U/L (15-37); Alanine Aminotransfer ALT/SGPT 23 U/L (16-61); Albumin, Serum 3.8 g/dL (3.2-5.0); Alkaline Phosphatase 66 U/L (45-117); Anion Gap 4 (5-15); BUN 18 mg/dL (7-18); BUN/Creat Ratio 18.8 RATIO (10-20); Chloride 103 mmol/L (98-107); Cholesterol 198 mg/dL (200); Creatinine, Serum 0.96 mg/dL (0.70-1.30); EST Glomerular Filtration Rate 81 mL/min (>60); Est Glom Filt Rate - Afr Amer 98 mL/min (>60); Globulin 3.8 g/dL (2.2-4.2); Glucose 107 mg/dL (74-106); High Density Lipoprotein 62 mg/dL; PSA,Total- Diagnostic 0.01 ng/mL (0.0-4.0); Potassium 4.1 mmol/L (3.5-5.1); Protein, Total 7.6 g/dL (6.4-8.2); Sodium Level 138 mmol/L (136-145); Triglycerides 139 mg/dL; Very Low Density Lipoprotein 28 mg/dL (5-40)
== END | disposition home or self-care (01) ==
LOC: LAB 07:11
PROVIDERS: PCP Family Medicine; Referring Provider Family Medicine; Visit Provider Family Medicine
DX: I10 Essential (primary) hypertension (principal); E78.5 Hyperlipidemia, unspecified; Z85.46 Personal history of malignant neoplasm of prostate
CPT/HCPCS: 36415; 80053; 80061; 84153; 85025

== ENCOUNTER → 2025-04-09 | Outpatient (CLI) | payer MEDICARE, SELFPAY ==
[2025-04-09 17:55] LABS: Hematocrit 40.8 % (40-54); Hemoglobin 13.8 g/dL (13.0-16.5); Immature Granulocytes Count 0.020 X10^3/uL (0.0-0.0); Mean Corp Hgb Conc 33.8 g/dL (32-36); Mean Corpuscular Volume 92.9 fL (80-94); Mean Platelet Vol. 9.3 fl (6.2-12.0); NRBC Flagged by Analyzer 0 % (0-5); Platelet Count 210 K/mm3 (150-450); RBC Distribution Width CV 12.2 % (11.6-14.6); RBC Distribution Width SD 41.7 fl (35.1-43.9); Red Blood Count 4.39 M/mm3 (4.6-6.2); White Blood Count 4.5 K/mm3 (4.4-11.0)
[2025-04-09 18:22] LABS: AST(SGOT) 29 U/L (<=37); Alanine Aminotransfer ALT/SGPT 15 U/L (<=46); Albumin, Serum 4.5 g/dL (3.4-4.8); Alkaline Phosphatase 68 U/L (40-129); Anion Gap 12 (7-18); BUN 21 mg/dL (4-19); BUN/Creat Ratio 23.5 RATIO (10-20); Calcium,Total 9.6 mg/dL (7.6-11.0); Carbon Dioxide 26.3 mmol/L (20.0-29.0); Chloride 100 mmol/L (96-106); Cholesterol 184 mg/dL (<=200); Globulin 3.0 g/dL (2.2-4.2); Glucose 96 mg/dL (70-99); Low Density Lipoprotein Calc. 85 mg/dL; PSA,Total- Diagnostic 0.02 ng/mL (0.00-4.00); Potassium 3.9 mmol/L (3.5-5.1); Triglycerides 282 mg/dL; Very Low Density Lipoprotein 56 mg/dL (5-40); cholesterol:hdl ratio screen 3.50
== END | disposition home or self-care (01) ==
LOC: BFHLAB 13:38
PROVIDERS: PCP Family Medicine; Visit Provider Family Medicine
DX: E78.5 Hyperlipidemia, unspecified (principal); K76.0 Fatty (change of) liver, not elsewhere classified; I10 Essential (primary) hypertension; Z85.46 Personal history of malignant neoplasm of prostate
CPT/HCPCS: 36415; 80053; 80061; 84153; 85025

== ENCOUNTER 2025-04-13 12:24 | Emergency (ER) | payer MEDICARE, SELFPAY ==
[2025-04-13 12:24] VITALS: BP 131/59; PULSE 73; RESP 18; TEMP 36.3; O2SAT 98
--- NOTE | 2025-04-13 14:14 | CT_ITS ---
PROCEDURE: ABDOMEN/PELVIS WITHOUT CONT 04/13/2025 REASON FOR EXAM: LEFT LOWER RIB TRAUMA TECHNIQUE: Procedure Code: CTABDPEL Modality: CT Procedure: ABDOMEN/PELVIS WITHOUT CONT Noncontrast technique limits evaluation of the abdominal and pelvic viscera. Coronal and Sagittal reconstruction series were provided. One or more dose reduction techniques were used (e.g., Automated exposure control, adjustment of the mA and/or kV according to patient size, use of iterative reconstruction technique). RADIATION DOSE SUMMARY: CTDlvol: 15.13 mGy DLP: 786.85 mGycm COMPARISON: None. FINDINGS: Lung bases: Clear. Liver: Unremarkable. Gallbladder: Unremarkable. Spleen: Unremarkable. Pancreas: Unremarkable. Adrenals: Unremarkable. Kidneys: Perinephric fat stranding. No hydronephrosis. No nephrolithiasis. Bladder: Unremarkable. Reproductive Organs: Unremarkable. Bowel: Colonic diverticulosis without evidence of acute diverticulitis. Appendix: Normal. Lymph nodes: No lymphadenopathy. Vasculature: No aneurysm. Atherosclerotic calcifications of the aorta. Peritoneum / Retroperitoneum: No free air or free fluid. Bones: No acute bony abnormalities. CT/Abdomen/Pelvis without Cont IMPRESSION: Perinephric fat stranding. No hydronephrosis. No nephrolithiasis. Colonic diverticulosis without evidence of acute diverticulitis. Reading Location: [facility]
--- NOTE | 2025-04-13 14:33 | ED.VIS.BACK ---
HPI History of Present Illness Chief Complaint: Back Informant: patient and spouse/S.O. Narrative Narrative: 75-year-old male presenting to the emergency room with back/rib pain. Patient states he fell a couple weeks ago believes he injured his left lower posterior ribs. States he has been dealing with the pain slowly getting better this morning when he woke had significantly more pain. It is worse with movements things like sneezing and coughing. Denies any hematuria. No shortness of breath. He does not take a blood thinner. [facility] Medical History Dyslipidemia History of GI bleed Paroxysmal atrial fibrillation Hiatal hernia History of prostate cancer Blood in stool Anemia GI bleed Secondary pulmonary arterial hypertension Non-rheumatic tricuspid valve insufficiency Palpitations Obesity Erectile dysfunction Non-alcoholic fatty liver disease GI bleed (2017) GERD (gastroesophageal reflux disease) Essential (primary) hypertension Hyperlipidemia HHT (hereditary hemorrhagic telangiectasia) Home Medications ?Medication ?Instructions ?Recorded ?Last Taken ?Type calcium 500 mg (as 1 tab PO DAILY supplement 07/06/18 12/02/19 05:00 History carbonate)-vitamin D3 5 mcg (200 unit) tablet (Oyster Shell Calcium-Vitamin D3) ferrous sulfate 325 mg (65 mg 325 mg PO BID supplement 07/06/18 12/02/19 05:00 History iron) tablet folic acid 800 mcg tablet 0.8 mg PO DAILY supplement 07/06/18 12/02/19 05:00 History multivitamin (Multiple Vitamins 1 tab PO DAILY supplement 07/06/18 12/02/19 05:00 History tablet) simvastatin 40 mg tablet 40 mg PO QHS 12/08/19 Unknown History glucosamine HCl 500 mg tablet 500 mg PO DAILY 01/27/23 Unknown History esomeprazole magnesium 40 mg 40 mg PO DAILY 05/19/23 Unknown History capsule,delayed release (Nexium) tumeric PO DAILY 12/07/23 Unknown History hydrochlorothiazide 25 mg tablet 25 mg PO DAILY #90 tabs 05/16/24 Unknown Rx losartan 100 mg tablet 100 mg PO DAILY #90 tabs 05/16/24 Unknown Rx metoprolol tartrate 100 mg tablet 100 mg PO BID #180 tabs 07/04/24 Unknown Rx amlodipine 5 mg tablet 5 mg PO DAILY #90 tabs 04/09/25 Unknown Rx oxycodone-acetaminophen 5 mg-325 1 tab PO Q6H PRN pain 3 days #12 04/13/25 Unknown Rx mg tablet (Percocet) tabs Allergy/AdvReac Type Severity Reaction Status Date / Time Penicillins Allergy Hives Verified 04/13/25 12:26 aspirin AdvReac H/O HHT Verified 04/13/25 12:26 Family History Father Hereditary hemorrhagic telangiectasia Cancer Leukemia Sister Hereditary hemorrhagic telangiectasia Surgical History History of left shoulder replacement History of right knee surgery history finger surgery History of carpal tunnel release History of prostatectomy (05/2012) Social History household members: spouse housing: house Smoking Status: Never smoker alcohol intake: current alcohol intake frequency: 0-2 drinks per day Alcohol type: hard liquor substance use type: does not use caffeine: Yes Type: coffee Number of servings: 3 ROS ROS ED Constitutional Constitutional ED: Denies chills, fever(s) or weight loss Eyes Eyes: Denies change in vision or diplopia ENT ENT ED: Denies ear pain, rhinorrhea or sore throat Cardiovascular Cardiovascular: Denies chest pain, orthopnea, palpitations or racing heartbeat Respiratory/Chest Respiratory/Chest: Denies cough, dyspnea or orthopnea Gastrointestinal Gastrointestinal: Denies abdominal pain, diarrhea, nausea or vomiting Genitourinary Genitourinary ED: Denies dysuria, hematuria or urinary frequency Musculoskeletal Musculoskeletal: Reports back pain; Denies arthralgias or myalgias Integumentary Denies abscess or rash Neurologic Neurologic: Denies headache(s) or weakness Psychiatric Psychiatric: Denies anxiety, depression, suicidal ideation or suicidal thoughts Endocrine Endocrinology: Denies polydipsia, polyphagia or polyuria Allergic/Immunologic Allergic/Immunologic ED: Denies mouth swelling, tongue swelling or urticaria EXAM Physical Exam Const Vital Signs: 04/13/25 12:24 04/13/25 16:00 Temperature 97.4 F L 98.3 F Temperature Source Oral Pulse Rate 73 71 Respiratory Rate 18 18 Blood Pressure 131/59 H 151/80 H Blood Pressure Mean 83 103 Pulse Ox 98 97 Oxygen Delivery Method Room Air Positive well nourished and well developed General Appearance ED: well developed and NAD HEENT Reports normocephalic, head/scalp atraumatic and moist mucous membranes Eyes PERRL and EOMs intact bilaterally Neck no lymphadenopathy, supple and no JVD Resp normal respiratory effort and clear to auscultation bilaterally Cardio regular rate, regular rhythm and no murmurs GI normal to inspection, nondistended, normoactive bowel sounds and non-tender Palpation: soft Back/Spine no CVA tenderness Back/Spine Narrative: Painful range of motion. Patient has tenderness to palpation posterior left lateral ribs. I do not appreciate ecchymosis or hematomas. There is no subcutaneous emphysema. No rash. Extremity normal to inspection General Extremety ED: Negative for edema General Extremity: Negative for edema Neuro oriented x3 and CN's II-XII intact bilaterally Sensorium / Orientation: alert Motor Exam: strength 5/5 throughout Psych mental status grossly normal Mood & Affect: Negative for depressed or tearful Skin no rashes or lesions noted and no wounds MDM MDM MDM Narrative Medical decision making narrative: Differential diagnosis includes rib fracture contusion retroperitoneal hematoma pyelonephritis ureterolithiasis CT abdomen pelvis does not demonstrate any obvious rib fracture or retroperitoneal hematoma. Please see radiologist read for full details. Urinalysis is negative. Clinically I think the patient most likely has rib contusion and possibly some muscle spasm. Recommend heat stretching anti-inflammatories. I can write for some Percocet for severe pain. Follow-up with primary care if not improving return if worsening or concerns History & Record Review Discussion w/independent historian: Patient and Family Lab Data Attestation: I reviewed the patient's lab results. Labs: Laboratory Results - last 24 hr 04/13/25 15:18 Urine Color Yellow Urine Clarity Clear Urine pH 7.0 Ur Specific [place] 1.010 Urine Protein Negative Urine Glucose (UA) Normal Urine Ketones Negative Urine Occult Blood 10 H Urine Nitrite Negative Urine Bilirubin Negative Urine Urobilinogen Normal Ur Leukocyte Esterase Negative Urine RBC 0-5 SEEN Urine WBC 0-5 SEEN Ur Squamous Epith Cells 0-5 SEEN Urine Bacteria 0 SEEN Urine Mucus 0 SEEN Radiography Diagnostic Testing: Clinical Impression(s) from Imaging Studies Abdomen/Pelvis CT 04/13/25 14:14 IMPRESSION: Perinephric fat stranding. No hydronephrosis. No nephrolithiasis. Colonic diverticulosis without evidence of acute diverticulitis. Reading Location: [facility] Discharge Plan Triage Chief Complaint: Back ED Provider: Primo Su Dx/Rx/DC Orders Clinical Impression: Contusion of rib on left side, Acute left flank pain Instructions: ED Bruise, Rib Prescriptions: New oxycodone-acetaminophen [Percocet] 5-325 mg tablet 1 tab PO Q6H PRN (Reason: pain) 3 Days Qty: 12 0RF No Action calcium carbonate-vitamin D3 [Oyster Shell Calcium-Vit D3] 500 mg(1,250mg) -200 unit tablet 1 tab PO DAILY folic acid 800 mcg tablet 0.8 mg PO DAILY multivitamin [Multiple Vitamins] tablet 1 tab PO DAILY glucosamine HCl 500 mg tablet 500 mg PO DAILY Rx Instructions: administer with a meal esomeprazole magnesium [Nexium] 40 mg capsule,delayed release(DR/EC) 40 mg PO DAILY tumeric PO DAILY ferrous sulfate 325 mg (65 mg iron) tablet 325 mg PO BID Patient Comments: supplement simvastatin 40 MG tablet 40 mg PO QHS hydrochlorothiazide 25 mg tablet 25 mg PO DAILY Qty: 90 4RF losartan 100 mg tablet 100 mg PO DAILY Qty: 90 4RF metoprolol tartrate 100 mg tablet 100 mg PO BID Qty: 180 3RF amlodipine 5 mg tablet 5 mg PO DAILY Qty: 90 3RF Primary Care Provider: Alfredo Heart Referrals: Alfredo Heart DO [Primary Care Provider, Family Practice] - 1 Week if not improving Print Language: Citizen Of [place] Disposition Disposition: Home, Self Care Discharge Date/Time: 04/13/25 16:05
--- OUTSIDE RECORDS SUMMARY | 2025-04-13 14:40 | XMS RPT_ITS | CCD ---
Author Organization [facility] Care Team Providers Care Manager Nursing Name Role Phone SRINIVASAN ALVARADO (HEATING AND REFRIGERATION INSPECTOR) Unavailable UnavailHilton Farley MD Unavailable [phone] Julia VALENCIA, Zita Unavailable Unavailable Art Hadley MD Primary Care Provider Leonor Harris Unavailable Unavailable Dr. [facility] Primary Care Provider Dr. [facility] Referring Provider [phone] Dr. [facility] Other Provider Dr. Alexis Zhou Attending Provider Dr. Robyn Barreto Attending Provider Sunny HUIZAR, SERG Jane Attending Provider Robyn Barreto MD Unavailable [facility] DO Primary Care Provider Tylor Bui MD Unavailable [facility] Primary Care Unavailable ROBYN BARRETO Referring Unavailable NIDIA MCDANIEL Attending Unavailable Hilton Gill MD Unavailable [phone] Julia VALENCIA, Zita Unavailable Unavailable Art Hadley MD Primary Care Provider Leonor Harris Unavailable Unavailable ART HADLEY Referring Unavailable SHARRI DIMAS Attending Unavailable ART HADLEY Primary Care Unavailable ART HADLEY Referring Unavailable SHARRI DIMAS Attending Unavailable ART HADLEY Primary Care Unavailable Robyn Barreto Attending Unavailable [facility] Referring Unavailable [facility] Primary Care Unavailable [facility] Primary Care Unavailable [facility] Referring Unavailable [facility] Attending Unavailable Allergies Allergy Classification Reported Allergen(s) Allergy Type Date of Onset Reaction(s) Facility (11 sources) Penicillins; Translations: [PENICILLINS] Propensity to adverse reactions to drug (disorder) 8 Hives [facility] Rep[facility] (7 sources) Aspirin Drug Allergy 0 H/O [facility] (2 sources) Penicillin G Drug Allergy 3 Hives, Swelling [facility] (1 source) Aspirin Drug Allergy 4 [facility] Repository Medications Current Medications Medication Drug Class(es) Dates Sig (Normalized) Sig (Original) calcium carbonate 1250 mg / cholecalciferol 200 unt oral tablet (15 sources) Vitamin D Start: 07-06-2018 take 1 tablet by mouth once daily Calcium Carbonate-Vitamin D3 (Oyster Shell Calcium-Vit D3) 500 mg(1,250mg) -200 unit tablet Active 1 TABLET PO DAILY July 06, 2018 12:00am Start: 10-10-2014 End: 07-04-2018 take 500 mg by mouth once daily Calcium Carbonate-Vitamin D3 Discontinued 500 MG PO DAILY October 10, 2014 12:00am July 04, 2018 10:26pm Comment on above: Take 1 tablet by maribel once daily. Calcium Carbonate / Vitamin D (2 sources) take 1 tablet by mouth once daily in the morning Calcium Carbonate-Vitamin D (CALCIUM 500 + D PO) Indications: Hypertension , Anemia take 1 Tab by mouth daily every morning. Active take 1 tablet by maribel th once daily in the morning Calcium Carbonate-Vitamin D (CALCIUM 500 + D PO) Indications: Hypertension , Anemia take 1 Tab by mouth daily every morning. 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 0 05/02/2012 Active Comment on above: Take 40 mg by mouth once daily. ferrous sulfate 325 mg oral tablet (17 sources) Start: 07-06-2018 take 325 mg by mouth twice daily Ferrous Sulfate Active 325 MG PO TWICE A DAY July 06, 2018 1:33pm Start: 10-10-2014 End: 07-06-2018 take 325 mg by mouth once daily Ferrous Sulfate Discontinued 325 MG PO DAILY October 10, 2014 12:00am July 06, 2018 1:34pm Comment on above: Take 325 mg by mouth two times a day. folic acid 0.8 mg oral tablet (10 sources) Start: 07-06-2018 take 0.8 mg by mouth once daily Folic Acid Active 0.8 MG PO DAILY July 06, 2018 12:00am take 1 tablet by maribel th once daily in the morning FOLIC ACID PO Indications: Hypertension , Anemia take 1 Tab by mouth daily every morning. Active take 1 tablet by mouth once santy y folic acid 800 mcg tablet Take 800 mcg by mouth once daily. 0 Active take 1 tablet by maribel th once daily in the morning FOLIC ACID PO Indications: Hypertension , Anemia take 1 Tab by mouth daily every morning. 0 Active Comment on above: Take 800 mcg by mout h once daily. glucosamine 500 mg oral tablet (2 sources) Start: 01-27-2023 take 500 mg by mouth once daily Glucosamine Hcl Active 500 MG PO DAILY January 27, 2023 12:00am administer with a meal metoprolol tartrate 100 mg oral tablet (4 sources) beta-Adrenergic Joo Start: 07-12-2023 take 1 tablet by mouth twice daily Metoprolol 100 MG tab regular release Take 1 tablet by mouth 2 times daily. 07/12/2023 Active Start: 01-27-2023 take 1 tablet by maribel th every twelve hours metoprolol tartrate, short acting, (LOPRESSOR) 25 mg tablet Take 1 tablet by mouth every 12 hours. 0 01/27/2023 Active Start: 01-27-2023 take 25 mg by mouth twice santy y Metoprolol Tartrate Active 25 MG PO TWICE A DAY 180 January 27, 2023 12:00am Comment on above: Take 1 tablet by maribel th every 12 hours. Multiple Vitamins-Minerals (MULTIVITAMIN PO) (2 sources) take 1 tablet by mouth once daily in the morning Multiple Vitamins-Minerals (MULTIVITAMIN PO) Indications: Hypertension , Anemia take 1 Tab by mouth daily every morning. Active take 1 tablet by maribel th once daily in the morning Multiple Vitamins-Minerals (MULTIVITAMIN PO) Indications: Hypertension , Anemia take 1 Tab by mouth daily every morning. 0 Active Multivitamin (Multiple Vitamins) tablet (7 sources) Start: 07-06-2018 take 1 tablet by mouth once daily Multivitamin (Multiple Vitamins) tablet Active 1 TABLET PO DAILY July 06, 2018 12:00am pantoprazole 40 mg delayed release oral tablet (7 sources) Proton Pump Inhibitor Start: 12-03-2019 take 40 mg by mouth twice daily Pantoprazole Active 40 MG PO TWICE A DAY 60 December 03, 2019 12:00am Turmeric extract (2 sources) Turmeric (QC TUMERIC COMPLEX PO) Take by mouth. Active Turmeric (QC SHARI MIGEL COMPLEX PO) Take by mouth. 0 Active Completed/Discontinued Medications Medication Drug Class(es) Dates Sig (Normalized) Sig (Original) acetaminophen 325 mg / butalbital 50 mg / caffeine 40 mg oral tablet (1 source) Barbiturate, Central Nervous System Stimulant, Methylxanthine Start: 08-14-2016 End: 03-09-2023 acetaminophen 325 mg-caffeine 40 mg-butalbital 50 mg (FIORICET) per tablet amLODIPine 10 mg oral tablet (20 sources) Dihydropyridine Calcium Channel Joo Start: 03-01-2023 take 1 tablet by mouth once amLODIPine (NORVASC) 10 mg tablet Take 1 tablet by mouth every afternoon. 0 03/01/2023 Active Start: 07-06-2018 End: 02-12-2023 take 10 mg by mouth once daily Amlodipine Active 10 MG PO DAILY February 12, 2023 9:36am Start: 10-10-2014 End: 03-09-2023 take 5 mg by mouth once daily Amlodipine Discontinued 5 MG PO DAILY October 10, 2014 12:00am July 06, 2018 2:04pm Comment on above: Take 1 tablet by maribel th every afternoon. Take 5 mg by mouth o nce daily. B Complex-Vitamin C-Folic Acid (7 sources) Start: 5 End: 9 take 800 ug by mouth once daily B Complex-Vitamin C-Folic Acid Discontinued 800 MCG PO DAILY October 10, 2014 12:00am July 04, 2018 10:26pm cetirizine hydrochloride 10 mg oral capsule (9 sources) Histamine-1 Receptor Antagonist Start: 0 End: 3 Cetirizine Discontinued 10 MG PO NEEDED December 02, 2019 12:00am January 27, 2023 11:27am take 1 tablet by maribel th once daily as needed cetirizine 10 MG Tab tablet Indications: Malignant neoplasm of prostate Take 1 tablet by mouth daily as needed. Active hydroCHLOROthiazide 25 mg oral tablet (20 sources) Thiazide Diuretic Start: 07-06-2018 End: 01-06-2022 take 1 tablet by mouth once hydroCHLOROthiazide 25 mg tablet Take 1 tablet by mouth every afternoon. 0 02/22/2023 Active Comment on above: Take 1 tablet by maribel th every afternoon. losartan potassium 100 mg oral tablet (20 sources) Angiotensin 2 Receptor Joo Start: 02-22-2023 take 1 tablet by mouth once losartan (COZAAR) 100 mg tablet Take 1 tablet by mouth every afternoon. 0 02/22/2023 Active Start: 07-06-2018 End: 01-06-2022 take 100 mg by mouth once daily Losartan Discontinued 100 MG PO DAILY December 24, 2020 11:37am January 06, 2022 8:24am Start: 06-26-2018 End: 07-06-2018 take 50 mg by mouth twice daily Losartan Discontinued 50 MG PO TWICE A DAY June 26, 2018 8:37pm July 06, 2018 2:05pm Start: 12-07-2016 End: 06-26-2018 take 2 tablets by mouth once daily Losartan (Cozaar) 50 MG tablet Discontinued 100 MG PO DAILY December 07, 2016 1:11pm June 26, 2018 8:37pm Start: 12-06-2016 End: 03-09-2023 take 1 tablet by mouth once daily Losartan (Cozaar) 50 MG tablet Discontinued 50 MG PO DAILY December 06, 2016 12:00am December 07, 2016 1:11pm Comment on above: Take 1 tablet by maribel th every afternoon. Take 50 mg by mouth once daily. Multivitamin With Folic Acid (7 sources) Start: 5 End: 9 take 1 tablet by mouth once daily Multivitamin With Folic Acid Discontinued 1 TABLET PO DAILY October 10, 2014 12:00am July 06, 2018 1:34pm MULTIVITAMIN WITH MINERALS (MEN'S ONE DAILY ORAL) (1 source) take 1 capsule by mouth once daily, then take 1 capsule by mouth once daily MULTIVITAMIN WITH MINERALS (MEN'S ONE DAILY ORAL) Take 1 capsule by mouth once daily. 0 Active Comment on above: Take 1 capsule by mo uth once daily. omeprazole 40 mg delayed release oral capsule (15 sources) Proton Pump Inhibitor Start: 9 End: 0 take 40 mg by mouth once daily Omeprazole Discontinued 40 MG PO DAILY July 06, 2018 12:00am December 03, 2019 11:18am Start: 10-10-2014 End: 03-09-2023 take 20 mg by mouth once daily Omeprazole Discontinued 20 MG PO DAILY October 10, 2014 12:00am July 06, 2018 1:32pm Comment on above: Take 20 mg by mouth once daily. simvastatin 40 mg oral tablet (20 sources) HMG-CoA Reductase Inhibitor Start: 12-08-2019 take 1 tablet by mouth once simvastatin (ZOCOR) 40 mg tablet Take 1 tablet by mouth every afternoon. 0 12/04/2022 Active Start: 07-06-2018 End: 10-12-2019 take 40 mg by mouth at bedtime Simvastatin Discontinue d 40 MG PO AT BEDTIME July 06, 2018 2:06pm October 12, 2019 2:35pm Start: 12-02-2007 End: 03-09-2023 take 80 mg by mouth at bedtime Simvastatin Discontinue d 80 MG PO AT BEDTIME October 10, 2014 12:00am July 06, 2018 2:08pm Comment on above: Take 1 tablet by maribel every afternoon. Take one(1) tablet d aily. valsartan 320 mg oral tablet (1 source) Angiotensin 2 Receptor Joo End: 3 take 1 tablet by mouth once daily valsartan (DIOVAN) 320 mg tablet Take 320 mg by mouth once daily. 0 03/09/2023 Discontinued (Other) Comment on above: Take 320 mg by mouth once daily. Problems Active Problems Problem Classification Problem Date Documented Da te Episodic/Chronic Cancer of prostate (7 sources) Malignant tumor of prostate; Translations: [Malignant neoplasm of prostate] Onset: 3 Chronic Cardiac dysrhythmias (7 sources) Paroxysmal atrial fibrillation; Translations: [Paroxysmal atrial fibrillation] Onset: 3 01-27-2023 Chronic Disorders of lipid metabolism (7 sources) Hyperlipidemia; Translations: [Hyperlipidemia, unspecified] 12-02-2019 Chronic Esophageal disorders (3 sources) Gastroesophageal reflux disease; Translations: [Gastro-esophageal reflux disease without esophagitis] Onset: 3 05-05-2012 Chronic Essential hypertension (13 sources) Essential hypertension; Translations: [Essential (primary) hypertension] Onset: 3 07-04-2018 Chronic Gastrointestinal hemorrhage (7 sources) Gastrointestinal hemorrhage; Translations: [Gastrointestinal hemorrhage, unspecified] 12-03-2019 Episodic Heart valve disorders (7 sources) Tricuspid incompetence, non-rheumatic ; Translations: [Nonrheumatic tricuspid (valve) insufficiency] 10-12-2019 Chronic Nonspecific chest pain (14 sources) Chest pain on exertion; Translations: [Chest pain, unspecified] 12-02-2019 Episodic Osteoarthritis (2 sources) Osteoarthritis of joint of right hand; Translations: [Primary osteoarthritis, right hand] Onset: 2 05-13-2021 Chronic Other circulatory disease (9 sources) Osler hemorrhagic telangiectasia syndrome; 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] Onset: 1 07-04-2018 Chronic Other circulatory disease (7 sources) H/O: hypertension; Translations: [Personal history of other diseases of the circulatory system] 06-28-2018 Episodic Other gastrointestinal disorders (4 sources) History of gastrointestinal bleed; Translations: [Personal history of other diseases of the digestive system] Onset: 3 01-27-2023 Episodic Other lower respiratory disease (7 sources) Dyspnea; Translations: [Dyspnea, unspecified] 12-02-2019 Episodic Other male genital disorders (3 sources) Secondary erectile dysfunction; Translations: [Male erectile dysfunction, unspecified] Onset: 3 06-20-2012 Chronic Other nutritional; endocrine; and metabolic disorders (2 sources) Obese class I; Translations: [Obesity, unspecified] Onset: 8 12-28-2017 Chronic Other nutritional; endocrine; and metabolic disorders (7 sources) H/O: raised blood lipids; Translations: [Personal history of other endocrine, nutritional and metabolic disease] 06-28-2018 Episodic Pulmonary heart disease (7 sources) Pulmonary arterial hypertension; Translations: [Secondary pulmonary arterial hypertension] 07-28-2018 Chronic Residual codes; unclassified (2 sources) At risk of hemorrhage; Translations: [Other specified personal risk factors, not elsewhere classified] Onset: 03-08-2023 Episodic Past or Other Problems Problem Classification Problem Date Documented Da te Episodic/Chronic Allergic reactions (2 sources) Radiation-induced dermatosis; Translations: [Other skin changes due to chronic exposure to nonionizing radiation] Onset: 12-02-2007 06-09-2010 Episodic Cancer of prostate (3 sources) History of malignant neoplasm of prostate; Translations: [Personal history of malignant neoplasm of prostate] Onset: 07-06-2012 07-06-2012 Episodic Cardiac dysrhythmias (19 sources) Palpitations; Translations: [Palpitations] Onset: 03-08-2023 12-02-2019 Episodic Complication of device; implant or graft (3 sources) Malfunction of penile prosthesis; Translations: [Other mechanical complication of implanted penile prosthesis, initial encounter] Onset: 04-20-2013 04-20-2013 Episodic Deficiency and other anemia (2 sources) Anemia; Translations: [Anemia, unspecified] Onset: 05-05-2012 05-05-2012 Episodic Mood disorders (2 sources) Mood disorders Onset: 07-16-2022 Resolved: 08-24-2023 07-16-2022 Other and unspecified benign neoplasm (1 source) Senile angioma; Translations: [Hemangioma of skin and subcutaneous tissue] Onset: 06-09-2010 06-09-2010 Episodic Other and unspecified benign neoplasm (1 source) Hemangioma of skin; Translations: [Hemangioma of skin and subcutaneous tissue] Onset: 06-09-2010 06-09-2010 Episodic Other and unspecified benign neoplasm (1 source) Melanocytic nevus of ear; Translations: [Melanocytic nevi of unspecified ear and external auricular canal] Onset: 06-09-2010 06-09-2010 Episodic Other circulatory disease (1 source) Telangiectasia disorder; Translations: [Nevus, non-neoplastic] Onset: 06-09-2010 06-09-2010 Episodic Other circulatory disease (2 sources) Spider nevus; Translations: [Nevus, non-neoplastic] Onset: 12-05-2013 12-05-2013 Episodic Other gastrointestinal disorders (3 sources) Personal history of other diseases of the digestive system; Translations: [Personal history of other diseases of digestive system] Onset: 03-08-2023 01-27-2023 Episodic Other screening for suspected conditions (not mental disorders or infectious disease) (2 sources) Suspected malignancy; Translations: [Encounter for observation for other suspected diseases and conditions ruled out] Onset: 09-14-2012 09-14-2012 Episodic Other skin disorders (1 source) Actinic keratosis; Translations: [Actinic keratosis] Onset: 12-05-2013 12-05-2013 Episodic Other skin disorders (1 source) Solar lentigo; Translations: [Other melanin hyperpigmentation] Onset: 12-05-2013 12-05-2013 Episodic Other skin disorders (1 source) Seborrheic keratosis; Translations: [Other seborrheic keratosis] Onset: 12-05-2013 12-05-2013 Episodic Residual codes; unclassified (4 sources) Other specified personal risk factors, not elsewhere classified; Translations: [Other specified personal history presenting hazards to health] Onset: 03-08-2023 03-08-2023 Episodic Unclassified (7 sources) history finger surgery 11-05-2021 Results Test Name Value Interpretation Reference Range Facility CBC W/Diff, Automatedon 03-19 Absolute Lymph 0.89 X10 3/uL Normal 0.83-4.51 [facility] Comment on above: Performed By: #### L 100.0100, L500.4100, L501.9940, L500.4050 #### [facility] [address] [place], [address] Absolute Neut 2.7 X10 3/uL Normal 2.0-7.7 [facility] Comment on above: Performed By: #### L 100.0100, L500.4100, L501.9940, L500.4050 #### [facility] [address] [place], [address] Basophils/100 WBC (Bld) 1.1 % High 0-1 [facility] Comment on above: Performed By: #### L 100.0100, L500.4100, L501.9940, L500.4050 #### [facility] [address] [place], [address] Eosinophils/100 WBC (Bld) 5.6 % High 0-5 [facility] Comment on above: Performed By: #### L 100.0100, L500.4100, L501.9940, L500.4050 #### [facility] [address] [place], [address] Erythrocyte distribution width (RBC) [Ratio] 12.0 % Normal 11.6-14.6 [facility] Comment on above: Performed By: #### L 100.0100, L500.4100, L501.9940, L500.4050 #### [facility] [address] [place], [address] Hematocrit (Bld) [Volume fraction] 43.3 % Normal 40-54 [facility] Comment on above: Performed By: #### L 100.0100, L500.4100, L501.9940, L500.4050 #### [facility] [address] [place], [address] Hemoglobin (Bld) [Mass/Vol] 14.7 g/dL Normal 13.0-16.5 [facility] Comment on above: Performed By: #### L 100.0100, L500.4100, L501.9940, L500.4050 #### [facility] [address] [place], [address] IG% 0.200 Normal 0.0-0.9 [facility] Comment on above: Result Comment: IG% - Immature Granulocytes (promyelocytes, myelocytes and metamyelocytes) > 1% indicates that a LEFT SHIFT is Present. Performed By: #### L 100.0100, L500.4100, L501.9940, L500.4050 #### [facility] [address] [place], [address] Lymphocytes/100 WBC (Bld) 19.9 % Normal 19-41 [facility] Comment on above: Performed By: #### L 100.0100, L500.4100, L501.9940, L500.4050 #### [facility] [address] [place], [address] MCH (RBC) [Entitic mass] 30.9 pg Normal 27.0-32.0 [facility] Comment on above: Performed By: #### L 100.0100, L500.4100, L501.9940, L500.4050 #### [facility] [address] [place], [address] MCHC (RBC) [Mass/Vol] 33.9 g/dL Normal 32-36 [facility] Comment on above: Performed By: #### L 100.0100, L500.4100, L501.9940, L500.4050 #### [facility] [address] [place], [address] MCV (RBC) [Entitic vol] 91.2 fL Normal 80-94 [facility] Comment on above: Performed By: #### L 100.0100, L500.4100, L501.9940, L500.4050 #### [facility] [address] [place], [address] Monocytes/100 WBC (Bld) 12.7 % High 0-10 [facility] Comment on above: Performed By: #### L 100.0100, L500.4100, L501.9940, L500.4050 #### [facility] [address] [place], [address] Neutrophils/100 WBC (Bld) 60.5 % Normal 47-70 [facility] Comment on above: Performed By: #### L 100.0100, L500.4100, L501.9940, L500.4050 #### [facility] [address] [place], [address] Nucleated RBC (Bld) [#/Vol] 0 10*3/uL Normal 0-5 [facility] Comment on above: Performed By: #### L 100.0100, L500.4100, L501.9940, L500.4050 #### [facility] [address] [place], [address] Platelet mean volume (Bld) [Entitic vol] 9.2 fL Normal 6.2-12.0 [facility] Comment on above: Performed By: #### L 100.0100, L500.4100, L501.9940, L500.4050 #### [facility] [address] [place], [address] Platelets (Bld) [#/Vol] 182 10*3/uL Normal 150-450 [facility] Comment on above: Performed By: #### L 100.0100, L500.4100, L501.9940, L500.4050 #### [facility] [address] [place], [address] RBC (Bld) [#/Vol] 4.75 10*6/uL Normal 4.6-6.[address] [facility] Comment on above: Performed By: #### L 100.0100, L500.4100, L501.9940, L500.4050 #### [facility] [address] [place], [address] RDW SD 40.1 fl Normal 35.1-43.9 [facility] Comment on above: Performed By: #### L 100.0100, L500.4100, L501.9940, L500.4050 #### [facility] [address] [place], [address] WBC (Bld) [#/Vol] 4.5 10*3/uL Normal 4.4-11.0 [facility] Comment on above: Performed By: #### L 100.0100, L500.4100, L501.9940, L500.4050 #### [facility] [address] [place], [address] Comprehensive Metabolic [facility] ilon 04-06-2024 Albumin [Mass/Vol] 3.8 g/dL Normal 3.2-5.0 [facility] Comment on above: Performed By: #### L 100.0100, L500.4100, L501.9940, L500.4050 #### [facility] [address] [place], [address] Albumin/Globulin [Mass ratio] 1.0 {ratio} Normal 0.9-2.4 [facility] Comment on above: Performed By: #### L 100.0100, L500.4100, L501.9940, L500.4050 #### [facility] [address] [place], [address] ALK P 66 U/L Normal 45-117 [facility] Comment on above: Performed By: #### L 100.0100, L500.4100, L501.9940, L500.4050 #### [facility] [address] [place], [address] ALT [Catalytic activity/Vol] 23 U/L Normal 16-61 [facility] Comment on above: Performed By: #### L 100.0100, L500.4100, L501.9940, L500.4050 #### [facility] [address] [place], [address] AST [Catalytic activity/Vol] 21 U/L Normal 15-37 [facility] Comment on above: Performed By: #### L 100.0100, L500.4100, L501.9940, L500.4050 #### [facility] [address] [place], [address] Bilirubin [Mass/Vol] 0.40 mg/dL Normal 0.20-1.00 [facility] Comment on above: Result Comment: For patients on eltrombopag therapy, use of Dimension [place] TBIL is not recommended. Performed By: #### L 100.0100, L500.4100, L501.9940, L500.4050 #### [facility] [address] [place], [address] BUN/CRE 18.8 RATIO Normal 10-20 [facility] Comment on above: Performed By: #### L 100.0100, L500.4100, L501.9940, L500.4050 #### [facility] [address] [place], [address] CA,Total 9.0 mg/dL Normal 8.5-10.1 [facility] Comment on above: Performed By: #### L 100.0100, L500.4100, L501.9940, L500.4050 #### [facility] [address] [place], [address] Chloride [Moles/Vol] 103 mmol/L Normal 98-107 [facility] Comment on above: Performed By: #### L 100.0100, L500.4100, L501.9940, L500.4050 #### [facility] [address] [place], [address] CO2 [Moles/Vol] 31.0 mmol/L Normal 21.0-32.0 [facility] Comment on above: Performed By: #### L 100.0100, L500.4100, L501.9940, L500.4050 #### [facility] [address] [place], [address] Creatinine [Mass/Vol] 0.96 mg/dL Normal 0.70-1.30 [facility] Comment on above: Result Comment: The validity of the calculated GFR GFRAA in patients over 70 years has not been determined. Clinical correlation is essential. Performed By: #### L 100.0100, L500.4100, L501.9940, L500.4050 #### [facility] [address] [place], [address] EST GFR - AA 98 mL/min Normal >60 [facility] Comment on above: Result Comment: Afri can Prydeinig GFR Calc Performed By: #### L 100.0100, L500.4100, L501.9940, L500.4050 #### [facility] [address] [place], [address] GAP 4 Low 5-15 [facility] Comment on above: Performed By: #### L 100.0100, L500.4100, L501.9940, L500.4050 #### [facility] [address] [place], [address] GFR/1.73 sq M.predicted among non-blacks MDRD (S/P/Bld) [Vol rate/Area] 81 mL/min/{1.73_m2} Normal >60 [facility] Comment on above: Result Comment: Non- GFR Calc Performed By: #### L 100.0100, L500.4100, L501.9940, L500.4050 #### [facility] [address] [place], [address] Globulin (S) [Mass/Vol] 3.8 g/dL Normal 2.2-4.2 [facility] Comment on above: Performed By: #### L 100.0100, L500.4100, L501.9940, L500.4050 #### [facility] [address] [place], [address] Glucose [Mass/Vol] 107 mg/dL High 74-106 [facility] Comment on above: Result Comment: Fast ing Glucose result from 100 to 125 mg/dL suggests IMPAIRED HOMEOSTASIS per A.D.A. criteria. Performed By: #### L 100.0100, L500.4100, L501.9940, L500.4050 #### [facility] [address] [place], [address] Potassium [Moles/Vol] 4.1 mmol/L Normal 3.5-5.1 [facility] Comment on above: Performed By: #### L 100.0100, L500.4100, L501.9940, L500.4050 #### [facility] [address] [place], [address] Sodium [Moles/Vol] 138 mmol/L Normal 136-145 [facility] Comment on above: Performed By: #### L 100.0100, L500.4100, L501.9940, L500.4050 #### [facility] [address] [place], [address] T PROT 7.6 g/dL Normal 6.4-8.2 [facility] Comment on above: Performed By: #### L 100.0100, L500.4100, L501.9940, L500.4050 #### [facility] [address] [place], [address] Urea nitrogen [Mass/Vol] 18 mg/dL Normal 7-18 [facility] Comment on above: Performed By: #### L 100.0100, L500.4100, L501.9940, L500.4050 #### [facility] [address] [place], [address] Lipid Profileon 04-06-2024 Cholesterol [Mass/Vol] 198 mg/dL Normal 200 [facility] Comment on above: Result Comment: <200 mg/dL Desirable 200-240 mg/dL Borderline >240 mg/dL High Risk Performed By: #### L 100.0100, L500.4100, L501.9940, L500.4050 #### [facility] [address] [place], [address] Cholesterol in HDL [Mass/Vol] 62 mg/dL Normal [facility] Comment on above: Result Comment: The drugs N-Acetylcysteine and Metamizole may falsely depress this assay. Reference Range HDL <40 mg/dL Low HDL Cholesterol HDL >or= 60 mg/dL High HDL Cholesterol Performed By: #### L 100.0100, L500.4100, L501.9940, L500.4050 #### [facility] [address] [place], [address] Cholesterol in LDL [Mass/Vol] 108 mg/dL Normal 0-130 [facility] Comment on above: Performed By: #### L 100.0100, L500.4100, L501.9940, L500.4050 #### [facility] [address] [place], [address] Cholesterol in VLDL [Mass/Vol] 28 mg/dL Normal 5-40 [facility] Comment on above: Performed By: #### L 100.0100, L500.4100, L501.9940, L500.4050 #### [facility] [address] [place], [address] Triglyceride [Mass/Vol] 139 mg/dL Normal [facility] Comment on above: Result Comment: The drugs N-Acetylcysteine and Metamizole may falsely depress this assay. Serum Triglycerides Reference Interval Normal <150 mg/dL Borderline high 150 - 199 mg/dL High 200 - 499 mg/dL Very High > or = 500 mg/dL Performed By: #### L 100.0100, L500.4100, L501.9940, L500.4050 #### [facility] [address] [place], [address] PSA,Total- Diagnosticon - PSA, DIAGNOSTIC 0.01 ng/mL Normal 0.0-4.0 [facility] Comment on above: Result Comment: This test was performed using the TPSA assay method for the Nextance chemistry system. Values obtained with different assay methods cannot be used interchangably. When changing PSA assays in the course of monitoring a patient, additional sequential testing should be carried out to confirm baseline values. Performed By: #### L 100.0100, L500.4100, L501.9940, L500.4050 #### [facility] [address] [place], [address] Cardiology Visit Reporton Cardiology Visit Report [facility] [address] [place], [place] [address] OFFICE VISIT Date of Service: 12/07/23 MR#: [id number] Acct: [id number] Name: CABRERA GOLDMAN SARAY Rep #: [id number] : 1950 Provider: Dr. 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 Required: No Accompanied by: Self Is patient in pain?: No Allergies Penicillins Allergy (Verified 12/07/23 13:41) Hives aspirin Adverse Reaction (Verified 12/07/23 13:41) H/O HHT Medications ???Medication ???Instructions ???Recorded ???Confirmed ???Type calcium 500 mg (as 1 tab PO DAILY supplement 07/06/18 05/29/24 History carbonate)-vitamin D3 5 mcg (200 unit) tablet (Oyster Shell Calcium-Vitamin D3) ferrous sulfate 325 mg (65 mg 325 mg PO BID supplement 07/06/18 05/29/24 History iron) tablet folic acid 800 mcg tablet 0.8 mg PO DAILY supplement 9 05/29/24 History multivitamin (Multiple Vitamins 1 tab PO DAILY supplement 07/06/18 05/29/24 History tablet) simvastatin 40 mg tablet 40 mg PO QHS 12/08/19 05/29/24 His tory glucosamine HCl 500 mg tablet 500 mg PO DAILY 01/27/23 05/29/24 History esomeprazole magnesium 40 mg 40 mg PO DAILY 05/19/23 05/29/24 H istory capsule,delayed release (Nexium) tumeric PO DAILY 12/07/23 05/29/24 History amlodipine 5 mg tablet 5 mg PO DAILY #90 tabs 05/16/24 Rx hydrochlorothiazide 25 mg tablet 25 mg PO DAILY #90 tabs 05/16/24 0 05/29/24 Rx losartan 100 mg tablet 100 mg PO DAILY #90 tabs 05/16/24 05/29/24 Rx metoprolol tartrate 100 mg tablet 100 mg PO BID #180 tabs 07/04/24 Rx Have you fallen in the past year?: No PFSH Medical History Dyslipidemia History of GI bleed Paroxysmal atrial fibrillation Hiatal hernia History of prostate cancer Blood in stool Anemia GI bleed Secondary pulmonary arterial hypertension Non-rheumatic tricuspid valve insufficiency Palpitations Obesity Erectile dysfunction Non-alcoholic fatty liver disease GI bleed (2017) GERD (gastroesophageal reflux disease) Essential (primary) hypertension Hyperlipidemia HHT (hereditary hemorrhagic telangiectasia) Surgical History History of left shoulder replacement History of right knee surgery history finger surgery History of carpal tunnel release History of prostatectomy (05/2012) Family History Father Hereditary hemorrhagic telangiectasia Cancer Leukemia Sister Hereditary hemorrhagic telangiectasia Social History Smoking Status: Never smoker alcohol intake: current alcohol intake frequency: 0-2 drinks per day Alcohol type: hard liquor substance use type: does not use caffeine: Yes Type: coffee Number of servings: 3 ROS Const Const: Negative for fatigue, weakness, headache(s), daytime sleepiness or difficulty sleeping ENT ENT: Negative for headache(s), dizziness or Nosebleed/epistaxis Cardio Chest Pain: No Palpitations: No Edema: None Resp Respiratory: Negative for SOB with activity, SOB at rest, SOB orthopnea SOB lying down or Cough GI GI: Negative nausea, vomiting or heartburn Neuro Neuro: Negative for dizziness, lightheadedness, near syncope, headache(s) or weakness Endo Endo: Negative for fatigue Supplemental Info Supplemental Information Echocardiogram 02/11/2023: Interpretation Summary The left ventricular ejection fraction is 65 %. Diastolic function is indeterminate. Mild (1+) mitral valve insufficiency. Right ventricular systolic pressure estimated to be 38 mmHg. Calcified aortic root. Echocardiogram 07/27/18: Interpretation Summary Normal LV size. Left ventricular systolic function is normal. The estimated ejection fraction is 65 %. Stage 1 diastolic dysfunction. Contrast injection was performed. Stress Test 01/22/23: Perfusion SPECT analysis: Review of the stress images demonstrate normal uptake of tracer noted in all areas of the myocardium. The resting images similar demonstrated normal uptake of tracer noted in all areas of the myocardium. No areas of reversibility are noted to suggest ischemia and no previous infarct is noted. Gated SPECT analysis: The gated ejection fraction is 65%. Conclusion: Normal pharmacologic myocardial perfusion stress test. Preserved ejection fraction. 48 HOUR HO (more content not included)... Normal [facility] PSA - DIAGNOSTIC/TUMOR MARKE ROrdered By: Maddie Berrios on 08-24-2023 Interpretation and review of laboratory results Normal [facility] Prostate specific Ag [Mass/Vol] ng/mL NINF - 4.00 ng/mL [facility] Comment on above: Test results cannot be interpreted as absolute evidence for the presence or absence of malignant disease. This test was performed on the Siem[employer] IM Immunoassay platform which is a 2-step sandwich chemiluminescent immunoassay. It is important to note that assays using different manufacturers and/or methods may not be comparable. [facility] TESTOSTERONEon 08-24-2023 Interpretation and review of laboratory results Normal [facility] Testosterone [Mass/Vol] 282 ng/dL 240 - 950 ng/dL [facility] Testosterone [Mass/Vol] 282 ng/dL Normal 240-950 [facility] Comment on above: Performed By: #### T QUINCY #### [facility] (DEFAULT) [address] [place] [address] Aung 04-20-2023 CNPN Telephone ([employer] ) CABRERA GOLDMAN ([id number]) 1950 M [facility] Date Time Provider Department 04/20/23 NIDIA MCDANIEL AGCARDPOB During your visit today, we recorded the following information about you: Thuan Hendrix RN 04/20/2023 1:36 PM Signed Received a call from patient who continues to have problems with his atrial fibrillation. Continues to experience high heart rates in the 130 to 140's at rest. Patient indicated he is having trouble with this heart rate and palpitations. Continues on metoprolol tartrate 25 mg orally bid. ANNIE Moody Susan M, RN 04/26/2023 1:02 PM Signed Left message on patient's voicemail requesting a return call regarding Dr. Mcdaniel's message and recommendations. Office phone number provided. ANNIE Moody Robert A, MD You 3 days ago Rate control for the atrial fibrillation is something that a general bus cleaner can manage, so this would be best managed by his local bus cleaner, Dr. Barreto. But as an initial measure I would recommend increasing the metoprolol dose to 50 mg twice daily. Nidia Mcdaniel MD April 23, 2023 4:29 PM Thuan Hendrix RN 04/29/2023 1:43 PM Signed Spoke with patient and notified of Dr. Mcdaniel's message and recommendations. Will go ahead and increase the metoprolol tartrate 50 mg orally twice per day. Will monitor heart rates and provide an update. Patient's request for medication is as follows: Requested Prescriptions Pending Prescriptions Disp Refills metoprolol tartrate, short acting, (LOPRESSOR) 50 mg tablet 180 tablet 3 Sig: Take 1 tablet by mouth two times a day. Prescription(s) as above. Please process accordingly. ANNIE Moody Susan M, RN 04/29/2023 1:44 PM Signed Addended by: TUHAN HENDRIX on: 04/29/2023 01:44 PM Modules accepted: Nidia Weiner MD 04/29/2023 8:03 PM Signed [facility] General Electrophysiology (EP) RX signed. Nidia Mcdaniel MD April 29, 2023 8:03 PM Nidia Mcdaniel MD 04/29/2023 8:03 PM Signed Addended by: NIDIA MCDANIEL on: 04/29/2023 08:03 PM Modules accepted: Thuan Anderson RN 05/19/2023 3:21 PM Signed Received a call from patient who saw Dr. Barreto today regarding his atrial fibrillation. Dr. Barreto recommended to patient to contact Dr. Mcdaniel for further treatment options. Patient will have Dr. Barreto fax over the most recent office notes to Dr. Mcdaniel for review. Patient also indicated that Dr. Barreto changed some of his medication, increased the metoprolol to 100 mg orally twice per day, kept losartan 100 mg orally daily and amlodipine 5 mg orally daily. ANNIE Moody Susan M, RN 05/20/2023 1:28 PM Signed Received medical records requested by patient from Dr. Barreto for Dr. Mcdaniel to review. Placed in Dr. Mcdaniel's door box for review. ANNIE Moody Robert A, MD 06/10/2023 12:15 PM Signed [facility] General Electrophysiology (EP) Reviewed case. Due to the inability to treat Mr. Goldman even short term with oral anticoagulation therapy, he is not able to safely undergo any advanced treatment options for the atrial fibrillation. We cannot perform electrical cardioversion, antiarrhythmic drug therapy, atrial fibrillation catheter ablation, or Watchman left atrial appendage closure device. So we are left with ventricular rate control, as with the metoprolol, which is entirely manageable by his local bus cleaner. If his heart rates are not sufficiently controlled with medication, or the dosages require for such control are not tolerated due to side effects, we could consider a pacemaker with AV node catheter ablation but that would be all that I could offer. If he desires a follow up appointment with me, we can certainly offer one, just let Ameena know to assist with scheduling. But with not much to offer there is no reason to see me unless the metoprolol is not able to control his heart rates. Nidia Mcdaniel MD June 10, 2023 12:15 PM Thuan Hendrix RN 06/10/2023 3:42 PM Signed Spoke with patient and discussed the message from Dr. Mcdaniel regarding treatment for the atrial fibrillation. Patient indicated that he is currently taking the metoprolol 100 mg orally twice per day and doing well. Will discuss Dr. Mcdaniel's message and recommendations with Dr. Barreto, will fax to [phone]. Patient voiced understanding. 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 Normal [facility] Aung 04-05-2023 [facility] Telephone (AGCARDPOB ) CABRERA GOLDMAN ([id number]) 1950 M [facility] Date Time Provider Department 04/05/23 NIDIA MCDANIEL During your visit today, we recorded the following information about you: Marko Cummins LPN 04/05/2023 2:25 PM Signed Call received from Pts PCP Dr Tran. Due to pts HHTT. 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 He will send over a letter with his concerns. Marko Cummins LPN Allergies As of Date: 04/05/2023 Noted Allergy Reaction PENICILLINS 12/02/2007 4 - Hives Comments: SWELLING OF BODY Date Reviewed: 03/09/2023 Reviewed by: Nidia Mcdaniel MD - Fully Assessed Prescriptions as of 04/20/2023 - hydroCHLOROthiazide 25 mg tablet Take 1 tablet by mouth every afternoon. - esomeprazole (NEXIUM) 40 mg capsule Take 40 mg by mouth once daily. - metoprolol tartrate, short acting, (LOPRESSOR) 25 mg tablet Take 1 tablet by mouth every 12 hours. - amLODIPine (NORVASC) 10 mg tablet Take 1 tablet by mouth every afternoon. - losartan (COZAAR) 100 mg tablet Take 1 tablet by mouth every afternoon. - simvastatin (ZOCOR) 40 mg tablet Take 1 tablet by mouth every afternoon. - MULTIVITAMIN WITH MINERALS (MEN'S ONE DAILY ORAL) Take 1 capsule by mouth once daily. - ferrous sulfate (IRON, FERROUS SULFATE,) 325 mg (65 mg iron) tablet Take 325 mg by mouth two times a day. - folic acid 800 mcg tablet Take 800 mcg by mouth once daily. - gpszgop-rgtdienaj-yncbutg D3 (CALCIUM+D) 500 mg(1,250mg) -200 unit per tablet Take 1 tablet by mouth once daily. Problem List As Of Date 04/05/2023 Noted Resolved Neoplasm of uncertain behavior of skin [D48.5] 12/02/2007 06/09/2010 Actinic keratosis [L57.0] 12/02/2007 06/09/2010 NEVUS////BENIGN SHABBIR SCALP/SKIN NECK [D23.4] 12/02/2007 06/09/2010 SANZ ANGIOMA////NEVUS, NON-NEOPLASTIC [I78.1] 12/02/2007 06/09/2010 ACTINIC DAMAGE///CHR SOLAR SKIN DAMAGE NOS [L57*12/02/2007 TELANG////CAPILLARY DIS NEC/NOS [I78.9] 12/02/2007 06/09/2010 Hemangioma of skin and subcutaneous tissue [D18*08/23/2008 06/09/2010 Sanz angiomas: face and R outer upper lip [D1*06/09/2010 Hemangioma of skin: R outer upper lip [D18.01] 06/09/2010 HHT (hereditary hemorrhagic telangiectasia) [I7*06/09/2010 Telangiectasia [I78.1] 06/09/2010 Melanocytic nevus of external ear: Intradermal *06/09/2010 Actinic Keratoses: Premalignant AK's: scalp ar*12/05/2013 Capillary angiomas [I78.1] 12/05/2013 Spider angioma of skin [I78.1] 12/05/2013 Actinic skin damage [L57.8] 12/05/2013 Solar lentigo [L81.4] 12/05/2013 Other seborrheic keratosis [L82.1] 12/05/2013 Gastroesophageal reflux disease [K21.9] 05/05/2012 History of malignant neoplasm of prostate [Z85.*07/06/2012 Hypertension [I10] 05/05/2012 Malfunction of penile prosthesis (HCC) [T83.490*04/20/2013 ED (erectile dysfunction) of organic origin [N5*06/20/2012 Malignant neoplasm of prostate (HCC) [C61] 05/05/2012 Palpitations [R00.2] PAF (paroxysmal atrial fibrillation) (HCC) [I48* At risk for stroke [Z91.89] 03/08/2023 History of GI bleed [Z87.19] 03/08/2023 At risk for bleeding associated with anticoagul*03/08/2023 Encounter Status:Closed by MARKO CUMMINS on 04/06/23 [facility] Aung 03-30-2023 CNPN Telephone (AGCMAVERICKPOB ) CABRERA GOLDMAN ([id number]) 1950 M T Date Time Provider Department 03/30/23 NIDIA MCDANIEL During your visit today, we recorded the following information about you: Jacy Stringer RN 03/30/2023 11:48 AM Signed Pt calls to inquire into the plan of care decided upon for his 03/09/23 office visit. ANNIE Cruz Robert A, MD 03/30/2023 6:31 PM Signed [facility] General Electrophysiology (EP) Here are my recommendations directly copied from my office note: PLAN AND RECOMMENDATIONS: 1) optimize dosage of beta-joo to achieve better ventricular rate control 2) obtain opinion from Dr. Bui regarding whether Mr. Goldman can safely take short term OAC (if we elect to pursue atrial fibrillation catheter ablation) or either OAC + low dose ASA or clopidogrel + low dose ASA (if we elect left atrial appendage closure device Watchman) 3) if cannot take even short term OAC then he cannot be a candidate for atrial fibrillation ablation. In that case he should be treated with optimal rate control and if still symptomatic consider antiarrhythmic drug therapy with flecainide 4) if he cannot take even short term OAC + ASA or clopidogrel + ASA, then he cannot be a candidate for Watchman left atrial appendage closure device Jacy Stringer RN 03/31/2023 10:18 AM Signed Spoke with pt. Notified of Dr Mcdaniel's recommendations. Pt voices understanding. Pt requests I fax Dr Mcdaniel's office note to Dr Bui for medication and time frame recommendations. I faxed the office note starring #2, 3 and 4 in the plan and recommendation section to [phone]. ANNIE Cruz Stacey, RN 03/31/2023 10:29 AM Signed Fax confirmation received. ANNIE Cruz Stacey, RN 03/31/2023 1:16 PM Signed Pt notified OV note had been sent to Dr Bui after office visit. Jacy Stringer RN Allergies As of Date: 03/30/2023 Noted Allergy Reaction PENICILLINS 12/02/2007 4 - Hives Comments: SWELLING OF BODY Date Reviewed: 03/09/2023 Reviewed by: Nidia Mcdaniel MD - Fully Assessed Reason for Visit: Patient Question [1477] Prescriptions as of 03/31/2023 - hydroCHLOROthiazide 25 mg tablet Take 1 tablet by mouth every afternoon. - esomeprazole (NEXIUM) 40 mg capsule Take 40 mg by mouth once daily. - metoprolol tartrate, short acting, (LOPRESSOR) 25 mg tablet Take 1 tablet by mouth every 12 hours. - amLODIPine (NORVASC) 10 mg tablet Take 1 tablet by mouth every afternoon. - losartan (COZAAR) 100 mg tablet Take 1 tablet by mouth every afternoon. - simvastatin (ZOCOR) 40 mg tablet Take 1 tablet by mouth every afternoon. - MULTIVITAMIN WITH MINERALS (MEN'S ONE DAILY ORAL) Take 1 capsule by mouth once daily. - ferrous sulfate (IRON, FERROUS SULFATE,) 325 mg (65 mg iron) tablet Take 325 mg by mouth two times a day. - folic acid 800 mcg tablet Take 800 mcg by mouth once daily. - stxpuhq-izsptsehz-ubzatfl D3 (CALCIUM+D) 500 mg(1,250mg) -200 unit per tablet Take 1 tablet by mouth once daily. Problem List As Of Date 03/30/2023 Noted Resolved Neoplasm of uncertain behavior of skin [D48.5] 12/02/2007 06/09/2010 Actinic keratosis [L57.0] 12/02/2007 06/09/2010 NEVUS////BENIGN SHABBIR SCALP/SKIN NECK [D23.4] 12/02/2007 06/09/2010 SANZ ANGIOMA////NEVUS, NON-NEOPLASTIC [I78.1] 12/02/2007 06/09/2010 ACTINIC DAMAGE///CHR SOLAR SKIN DAMAGE NOS [L57*12/02/2007 TELANG////CAPILLARY DIS NEC/NOS [I78.9] 12/02/2007 06/09/2010 Hemangioma of skin and subcutaneous tissue [D18*08/23/2008 06/09/2010 Sanz angiomas: face and R outer upper lip [D1*06/09/2010 Hemangioma of skin: R outer upper lip [D18.01] 06/09/2010 HHT (hereditary hemorrhagic telangiectasia) [I7*06/09/2010 Telangiectasia [I78.1] 06/09/2010 Melanocytic nevus of external ear: Intradermal *06/09/2010 Actinic Keratoses: Premalignant AK's: scalp ar*12/05/2013 Capillary angiomas [I78.1] 12/05/2013 Spider angioma of skin [I78.1] 12/05/2013 Actinic skin damage [L57.8] 12/05/2013 Solar lentigo [L81.4] 12/05/2013 Other seborrheic keratosis [L82.1] 12/05/2013 Gastroesophageal reflux disease [K21.9] 05/05/2012 History of malignant neoplasm of prostate [Z85.*07/06/2012 Hypertension [I10] 05/05/2012 Malfunction of penile prosthesis (HCC) [T83.490*04/20/2013 ED (erectile dysfunction) of organic origin [N5*06/20/2012 Malignant neoplasm of prostate (HCC) [C61] 05/05/2012 Palpitations [R00.2] PAF (paroxysmal atrial fibrillation) (HCC) [I48* At risk for stroke [Z91.89] 03/08/2023 History of GI bleed [Z87.19] 03/08/2023 At risk for bleeding associated with anticoagul*03/08/2023 Encounter Status:Closed by NIDIA MCDANIEL on 03/30/23 [facility] CNOVon 03-09-2023 CNOV Office Visit (CATIA DAILYB) CABRERA GOLDMAN ([id number]) 1950 M [facility] Date Time Provider Department 03/09/23 2:20 PM NIDIA MCDANIEL AGCARDPOSaul During your visit today, we recorded the following information about you: Pulse Respiration Blood pressure Weight 71/minute 18/minute 122/64 84.8 kg Height 1.753 m Nidia Mcdaniel MD 03/09/2023 7:34 PM Signed PRIMARY CARE PHYSICIAN: Ike Heart [address] [place] [address] REFERRING PHYSICIAN: Robyn Barreto [address] [facility] [address] [facility] [address] Patient Care Team: Ike Heart DO as PCP - General (Family Medicine) Robyn Barreto MD as Specialty Clinical Psychiatrist (Cardiology) Tylor Bui MD as Specialty Clinical Psychiatrist (Gastroenterology) CHIEF COMPLAINT: Evaluation for arrhythmia, atrial fibrillation HISTORY OF PRESENT ILLNESS: Mr. Goldman is a 72 year old male who presents today for evaluation of paroxysmal atrial fibrillation. He is referred by Dr. Barreto of [facility]. Mr. Goldman states the atrial fibrillation was diagnosed about 6 - 8 months ago, but was experiencing symptoms a few months prior to that. Episodes of tightness in chest, tachycardia, palpitations. Episodes would last for several minutes to an hour or two. At one point he was experiencing multiple episodes every day. He was evaluated by PCP. He was referred to Dr. Barreto of [facility]. He wore stitch bonding machine drawer in December 2022, this revealed paroxysmal atrial fibrillation. Nuclear stress test in January was unremarkable. He has been treated with metoprolol and noted improvement. Still has symptoms but not as frequently, lasting a few minutes. States he cannot always tell if/when he is in atrial fibrillation --- was in atrial fibrillation with HR low 100s bpm range here in the office and was not much aware of it. He denies chest pain, orthopnea, PND, syncope. Thus far he has been treated with a beta-joo medication for ventricular rate control. He has not been treated with oral anticoagulation or even aspirin due to the potential for bleeding complications given his history of hereditary hemorrhagic telangiectasia. He has not had major GI bleeding in the past, such as bleeding that would require hospitalization and blood transfusions. However he does have some degree of anemia from chronic GI blood loss, sometimes the blood counts get low enough that he has to increase the iron supplement dosage. He states that he has been told in the past that he should not take anticoagulant medications or medications such as aspirin. Mr. Goldman is referred for evaluation to discuss the treatment options for the atrial fibrillation. I have confirmed and edited as necessary, the PFSH and ROS obtained by others. PAST MEDICAL HISTORY Diagnosis Date Anemia At risk for bleeding associated with anticoagulants At risk for stroke Erectile dysfunction Esophageal reflux Essential hypertension, benign Fatty liver disease, nonalcoholic GERD (gastroesophageal reflux disease) GI bleed Hiatal hernia History of GI bleed History of hereditary haemorrhagic telangiectasia (HHT) Mixed hyperlipidemia Obesity Other and unspecified hyperlipidemia PAF (paroxysmal atrial fibrillation) (HCC) Palpitations Prostate cancer (HCC) Secondary pulmonary arterial hypertension (HCC) Tricuspid valve insufficiency, non-rheumatic PAST SURGICAL HISTORY Procedure Laterality Date FINGER SURGERY HX finger KNEE SURGERY HX Right right knee surgery LAP RETROPUBIC PROSTATECTOMY 06/13/2012 Prostate Cancer LAPAROSCOPIC HERNIA REPAIR Right hernia repair inguinal LASER VOCAL CORD POLYP polyps off vocal cords REVISE MEDIAN N/CARPAL TUNNEL SURG SHOULDER SURGERY HX Left 04/23/2020 left shoulder replacement SOCIAL HISTORY Social History Tobacco Use Smoking status: Never Smokeless tobacco: Never Substance Use Topics Alcohol use: Yes Comment: socially Drug use: No FAMILY HISTORY Problem Relation Age of Onset Skin Cancer Mother Arthritis Mother Lymphoma Father other (hereditary hemorrhagic telangiectasia) Father HHT Rheumatic Fever Father also had heart murmur attributed to the rheumatic fever other (hereditary hemorrhagic telangiectasia) Sister HHT other (hereditary hemorrhagic telangiectasia) Brother HHT No Known Problems Daughter No Known Problems Daughter ALLERGIES: ALLERGIES Allergen Reactions Penicillins Hives SWELLING OF BODY MEDICATIONS: hydroCHLOROthiazide 25 mg tablet Take 1 tablet by mouth every afternoon. esomeprazole (NEXIUM) 40 mg capsule Take 40 mg by mouth once daily. metoprolol tartrate, short acting, (LOPRESSOR) 25 mg tablet Take 1 tablet by mouth every 12 hours. amLODIPine (NORVASC) 10 mg tablet Take 1 tablet by mouth every afternoon. losartan (CO (more content not included)... Normal [facility] Basophil percentageOrdered B y: Robyn Barreto on 01-27-2023 Chloride [Moles/Vol] 103 mmol/L 98-107 [facility] Glucose [Mass/Vol] 83 mg/dL 74-106 [facility] Potassium [Moles/Vol] 3.6 mmol/L 3.5-5.1 [facility] Sodium [Moles/Vol] 138 mmol/L 136-145 [facility] Laboratory - Chemistry and C hemistry - challengeOrdered By: Robyn Barreto on 01-27-2023 CO2 [Moles/Vol] 29.0 mmol/L 21.0-32.0 [facility] Urea nitrogen/Creatinine [Mass ratio] 24.9 mg/mg -20 [facility] No Panel InformationOrdered By: Robyn Barreto on 01-27-2023 Estimated GFR (MDRD) Amer 121 mL/min >60 [facility] Comment on above: GFR Calc Estimated GFR (MDRD) Non-Af Amer 100 mL/min >60 [facility] Comment on above: Non- GFR Calc Thyroid Stimulating Hormone (TSH) 1.04 uIU/mL 0.358-3.74 [facility] Serum or plasma calcium lee urement (mass/volume)Ordered By: Robyn Barreto on 01-27-2023 Calcium [Mass/Vol] 9.4 mg/dL 8.5-10.1 [facility] Serum or plasma creatinine m easurement (mass/volume)Ordered By: Robyn Barreto on 01-27-2023 Creatinine [Mass/Vol] 0.80 mg/dL 0.70-1.30 [facility] Comment on above: The validity of the calculated GFR & GFRAA in patients over 70 years has not been determined. Clinical correlation is essential. Serum or plasma urea nitroge n measurement (mass/volume)Ordered By: Robyn Barreto on 01-27-2023 Urea nitrogen [Mass/Vol] 20 mg/dL 7-18 [facility] Thin prep Papanicolaou smear with manual screeningOrdered By: Robyn Barreto on 01-27-2023 Thin prep Papanicolaou smear with manual screening 6 5-15 [facility] Absolute lymphocyte countOrd ered By: Ike Heart on 12-23-2022 Lymphocytes Auto (Unsp spec) [#/Vol] 0.63 10*3/uL 0.83-4.51 [facility] Basophil percentageOrdered B y: Ike Heart on 12-23-2022 Basophils/100 WBC (Bld) 0.9 % 0-1 [facility] Bilirubin [Mass/Vol] 0.20 mg/dL 0.20-1.00 [facility] Comment on above: For patients on eltr ombopag therapy, use of Dimension [place] TBIL is not recommended. Chloride [Moles/Vol] 102 mmol/L 98-107 [facility] Cholesterol [Mass/Vol] 148 mg/dL <200 [facility] Comment on above: <200 mg/dL Desirable 200-240 mg/dL Borderline >240 mg/dL High Risk Eosinophils/100 WBC (Bld) 1.4 % 0-5 [facility] Glucose [Mass/Vol] 99 mg/dL 74-106 [facility] Neutrophils (Bld) [#/Vol] 3.0 10*3/uL 2.0-7.7 [facility] Neutrophils/100 WBC (Bld) 69.8 % 47-70 [facility] Potassium [Moles/Vol] 3.4 mmol/L 3.5-5.1 [facility] Protein [Mass/Vol] 7.4 g/dL 6.4-8.2 [facility] Sodium [Moles/Vol] 137 mmol/L 136-145 [facility] Triglyceride [Mass/Vol] 117 mg/dL <199 [facility] Comment on above: The drugs N-Acetylcy steine and Metamizole may falsely depress this assay.Serum Triglycerides Reference Interval Normal <150 mg/dL Borderline high 150 - 199 mg/dL High 200 - 499 mg/dL Very High > or = 500 mg/dL WBC (Bld) [#/Vol] 4.3 10*3/uL 4.4-11.0 [facility] Blood erythrocytes count (nu mber/volume)Ordered By: Ike Heart on 12-23-2022 RBC (Bld) [#/Vol] 4.02 10*6/uL 4.6-6.[address] [facility] Blood hemoglobin measurement (mass/volume)Ordered By: Ike Heart on 12-23-2022 Hemoglobin (Bld) [Mass/Vol] 12.5 g/dL 13.0-16.5 [facility] Blood lymphocytes/100 leukoc ytesOrdered By: Ike Heart on 12-23-2022 Lymphocytes/100 WBC (Bld) 14.5 % 19-41 [facility] Blood monocytes/100 leukocyt esOrdered By: Ike Heart on 12-23-2022 Monocytes/100 WBC (Bld) 12.9 % 0-10 [facility] Blood platelet mean volumeOr dered By: Ike Heart on 12-23-2022 Platelet mean volume (Bld) [Entitic vol] 9.6 fL 6.2-12.0 [facility] Determination of erythrocyte mean corpuscular volume (MCV)Ordered By: Ike Heart on 12-23-2022 MCV (RBC) [Entitic vol] 95.5 fL 80-94 [facility] Hematocrit Auto (Bld) [Volum e fraction]Ordered By: Ike Heart on 12-23-2022 Hematocrit (Bld) [Volume fraction] 38.4 % 40-54 [facility] Laboratory - Chemistry and C hemistry - challengeOrdered By: Ike Heart on 12-23-2022 ALP [Catalytic activity/Vol] 70 U/L 45-117 [facility] ALT [Catalytic activity/Vol] 16 U/L 16-61 [facility] CO2 [Moles/Vol] 25.0 mmol/L 21.0-32.0 [facility] Globulin (S) [Mass/Vol] 3.8 g/dL 2.2-4.2 [facility] Urea nitrogen/Creatinine [Mass ratio] 19.3 mg/mg 10-20 [facility] Laboratory - Hematology and Cell countsOrdered By: Ike Heart on 12-23-2022 Erythrocyte distribution width (RBC) [Entitic vol] 50.4 fL 35.1-43.9 [facility] Erythrocyte distribution width (RBC) [Ratio] 14.3 % 11.6-14.6 [facility] Immature granulocytes/100 WBC (Bld) 0.500 % 0.0-0.9 [facility] Comment on above: IG% - Immature Granu locytes (promyelocytes, myelocytes and metamyelocytes) > 1% indicates that a LEFT SHIFT is Present. MCH (RBC) [Entitic mass] 31.1 pg 27.0-32.0 [facility] Nucleated RBC/100 WBC (Bld) [Ratio] 0 % 0-5 [facility] MCHC Auto (RBC) [Mass/Vol]Or dered By: Ike Heart on 12-23-2022 MCHC (RBC) [Mass/Vol] 32.6 g/dL 32-36 [facility] No Panel InformationOrdered By: Ike Heart on 12-23-2022 Estimated GFR (MDRD) Amer 126 mL/min >60 [facility] Comment on above: GFR Calc Estimated GFR (MDRD) Non-Af Amer 104 mL/min >60 [facility] Comment on above: Non- GFR Calc Prostate Specific Antigen Screen < 0.01 ng/mL 0.00-4.00 [facility] Comment on above: This test was perfor med using the TPSA assay method for theNextance chemistry system. Values obtained with differentassay methods cannot be used interchangably.When changing PSA assays in the course of monitoring apatient, additional sequential testing should be carriedout to confirm baseline values. Platelets bldOrdered By: Annalise Heart on 12-23-2022 Platelets (Bld) [#/Vol] 193 10*3/uL 150-450 [facility] Serum or plasma albumin lee urement (mass/volume)Ordered By: Ike Heart on 12-23-2022 Albumin [Mass/Vol] 3.6 g/dL 3.2-5.0 [facility] Serum or plasma albumin/glob ulin mass ratioOrdered By: Ike Heart on 12-23-2022 Albumin/Globulin [Mass ratio] 0.9 {ratio} 0.9-2.4 [facility] Serum or plasma calcium lee urement (mass/volume)Ordered By: Ike Heart on 12-23-2022 Calcium [Mass/Vol] 8.4 mg/dL 8.5-10.1 [facility] Serum or plasma cholesterol in HDL measurement (mass/volume)Ordered By: Ike Heart on 12-23-2022 Cholesterol in HDL [Mass/Vol] 55 mg/dL >40 [facility] Comment on above: The drugs N-Acetylcy steine and Metamizole may falsely depress this assay. Reference Range HDL <40 mg/dL Low HDL Cholesterol HDL >or= 60 mg/dL High HDL Cholesterol Serum or plasma cholesterol in VLDL measurement (mass/volume)Ordered By: Ike Heart on 12-23-2022 Cholesterol in VLDL [Mass/Vol] 23 mg/dL 5-40 [facility] Serum or plasma creatinine m easurement (mass/volume)Ordered By: Ike Heart on 12-23-2022 Creatinine [Mass/Vol] 0.78 mg/dL 0.70-1.30 [facility] Comment on above: The validity of the calculated GFR & GFRAA in patients over 70 years has not been determined. Clinical correlation is essential. Serum or plasma low density lipoprotein (LDL) cholesterol measurement (mass/volume)Ordered By: Iek Heart on 12-23-2022 Cholesterol in LDL [Mass/Vol] 70 mg/dL 0-130 [facility] Serum or plasma urea nitroge n measurement (mass/volume)Ordered By: Ike Heart on 12-23-2022 Urea nitrogen [Mass/Vol] 15 mg/dL 7-18 [facility] Thin prep Papanicolaou smear with manual screeningOrdered By: Ike Heart on 12-23-2022 Thin prep Papanicolaou smear with manual screening 18 U/L 15-37 [facility] Thin prep Papanicolaou smear with manual screening 10 5-15 [facility] No Panel InformationOrdered By: Tylor Bui on 12-17-2022 Stool Calprotectin 124 ug/g 0-120 [facility] Comment on above: Concentration Interp retation Follow-Up< 5 - 50 ug/g Normal None>50 -120 ug/g Borderline Re-evaluate in 4-6 weeks >120 ug/g Abnormal Repeat as clinically indicatedPerformed at: [facility] [address] [id number] Director: Sylvia Goddard MD, Phone: [phone] No Panel InformationOrdered By: Tylor Bui on 12-16-2022 Endomysial IgA Antibody Negative Negative [facility] Serum IgA measurement (units /volume)Ordered By: Tylor Bui on 12-16-2022 IgA Qn (S) 199 mg/dL 61-437 [facility] Comment on above: Performed at: [facility] [address] [id number] Director: Tylor Sultana PhD, Phone: [phone] Serum or plasma C reactive p rotein measurement (mass/volume)Ordered By: Tylor Bui on 12-16-2022 CRP [Mass/Vol] mg/L 0.0-3.0 [facility] Comment on above: C-Reactive Protein ( CRP) provides useful information for thediagnosis, therapy and monitoring of inflammatory processesand associated diseases. For the evaluation of Relative Riskfor Cardiovascular Disease, a High Sensitivity CRP (HSCRP)should be ordered. Serum tissue transglutaminas e IgA antibody assay (units/volume)Ordered By: Tylor Bui on 12-16-2022 tTG IgA Qn (S) <2 U/mL 0-3 [facility] Comment on above: Negative 0 - 3 Weak Positive 4 - 10 Positive >10 Tissue Transglutaminase (tTG) has been identified as the endomysial antigen. Studies have demonstr- ated that endomysial IgA antibodies have over 99% specificity for gluten sensitive enteropathy. Absolute lymphocyte countOrd ered By: Ike Heart on 10-27-2022 Lymphocytes Auto (Unsp spec) [#/Vol] 0.78 10*3/uL 0.83-4.51 [facility] Basophil percentageOrdered B y: Ike Heart on 10-27-2022 Basophils/100 WBC (Bld) 1.0 % 0-1 [facility] Eosinophils/100 WBC (Bld) 3.5 % 0-5 [facility] Neutrophils (Bld) [#/Vol] 3.6 10*3/uL 2.0-7.7 [facility] Neutrophils/100 WBC (Bld) 70.0 % 47-70 [facility] WBC (Bld) [#/Vol] 5.2 10*3/uL 4.4-11.0 [facility] Blood erythrocytes count (nu mber/volume)Ordered By: Ike Heart on 10-27-2022 RBC (Bld) [#/Vol] 4.31 10*6/uL 4.6-6.[address] [facility] Blood hemoglobin measurement (mass/volume)Ordered By: Ike Heart on 10-27-2022 Hemoglobin (Bld) [Mass/Vol] 13.0 g/dL 13.0-16.5 [facility] Blood lymphocytes/100 leukoc ytesOrdered By: Ike Heart on 10-27-2022 Lymphocytes/100 WBC (Bld) 15.1 % 19-41 [facility] Blood monocytes/100 leukocyt esOrdered By: Ike Heart on 10-27-2022 Monocytes/100 WBC (Bld) 10.2 % 0-10 [facility] Blood platelet mean volumeOr dered By: Ike Heart on 10-27-2022 Platelet mean volume (Bld) [Entitic vol] 10.0 fL 6.2-12.0 [facility] Clostridium difficile detect ion by polymerase chain reactionOrdered By: Ike Heart on 10-27-2022 C. difficile DNA MELVA+probe Ql (Unsp spec) [facility] Determination of erythrocyte mean corpuscular volume (MCV)Ordered By: Ike Heart on 10-27-2022 MCV (RBC) [Entitic vol] 91.6 fL 80-94 [facility] Hematocrit Auto (Bld) [Volum e fraction]Ordered By: Ike Heart on 10-27-2022 Hematocrit (Bld) [Volume fraction] 39.5 % 40-54 [facility] Laboratory - Hematology and Cell countsOrdered By: Ike Heart on 10-27-2022 Erythrocyte distribution width (RBC) [Entitic vol] 43.2 fL 35.1-43.9 [facility] Erythrocyte distribution width (RBC) [Ratio] 13.1 % 11.6-14.6 [facility] Immature granulocytes/100 WBC (Bld) 0.200 % 0.0-0.9 [facility] Comment on above: IG% - Immature Granu locytes (promyelocytes, myelocytes and metamyelocytes) > 1% indicates that a LEFT SHIFT is Present. MCH (RBC) [Entitic mass] 30.2 pg 27.0-32.0 [facility] Nucleated RBC/100 WBC (Bld) [Ratio] 0 % 0-5 [facility] MCHC Auto (RBC) [Mass/Vol]Or dered By: Ike Heart on 10-27-2022 MCHC (RBC) [Mass/Vol] 32.9 g/dL 32-36 [facility] Ova and parasitesOrdered By: Ike Heart on 10-27-2022 Ova and parasites identified LM Nom (Unsp spec) [facility] Platelets bldOrdered By: Annalise Heart on 10-27-2022 Platelets (Bld) [#/Vol] 242 10*3/uL 150-450 [facility] Stool enteric pathogen panel by probe and target amplification methodOrdered By: Ike Heart on 10-27-2022 Gastrointestinal pathogens panel MELVA+probe (Stl) [facility] Stool lactoferrin detection by immunoassayOrdered By: Ike Heart on 10-27-2022 Lactoferrin IA Ql (Stl) [facility] PSA - DIAGNOSTIC/TUMOR NANO Encisodered By: Storm Vitale on 07-16-2022 Interpretation and review of laboratory results Normal [facility] Prostate specific Ag [Mass/Vol] ng/mL NINF - 4.00 ng/mL [facility] Comment on above: This test was perfor med on the Outline App Immunoassay platform which is a 2-step sandwich chemiluminescent immunoassay. It is important to note that assays using different manufacturers and/or methods may not be comparable. [facility] TESTOSTERONEon 07-16-2022 Interpretation and review of laboratory results Normal [facility] Testosterone [Mass/Vol] 298 ng/dL 87 - 814 ng/dL [facility] Absolute lymphocyte countOrd ered By: Dr. Heart on 06-29-2022 Lymphocytes Auto (Unsp spec) [#/Vol] 0.64 10*3/uL 0.83-4.51 [facility] Basophil percentageOrdered B y: Dr. Heart on 06-29-2022 Basophils/100 WBC (Bld) 1.5 % 0-1 [facility] Eosinophils/100 WBC (Bld) 4.6 % 0-5 [facility] Neutrophils (Bld) [#/Vol] 3.3 10*3/uL 2.0-7.7 [facility] Neutrophils/100 WBC (Bld) 68.3 % 47-70 [facility] WBC (Bld) [#/Vol] 4.8 10*3/uL 4.4-11.0 [facility] Blood erythrocytes count (nu mber/volume)Ordered By: Dr. Heart on 06-29-2022 RBC (Bld) [#/Vol] 3.85 10*6/uL 4.6-6.[address] [facility] Blood hemoglobin measurement (mass/volume)Ordered By: Dr. Heart on 06-29-2022 Hemoglobin (Bld) [Mass/Vol] 12.8 g/dL 13.0-16.5 [facility] Blood lymphocytes/100 leukoc ytesOrdered By: Dr. Heart on 06-29-2022 Lymphocytes/100 WBC (Bld) 13.3 % 19-41 [facility] Blood monocytes/100 leukocyt esOrdered By: Dr. Heart on 06-29-2022 Monocytes/100 WBC (Bld) 11.9 % 0-10 [facility] Blood platelet mean volumeOr dered By: Dr. Heart on 06-29-2022 Platelet mean volume (Bld) [Entitic vol] 9.6 fL 6.2-12.0 [facility] Determination of erythrocyte mean corpuscular volume (MCV)Ordered By: Dr. Heart on 06-29-2022 MCV (RBC) [Entitic vol] 100.3 fL 80-94 [facility] Hematocrit Auto (Bld) [Volum e fraction]Ordered By: Dr. Heart on 06-29-2022 Hematocrit (Bld) [Volume fraction] 38.6 % 40-54 [facility] Iron measurement (mass/mass) Ordered By: Dr. Heart on 06-29-2022 Iron (Unsp spec) [Mass/Mass] 139 ug/dL 65-175 [facility] Laboratory - Hematology and Cell countsOrdered By: Dr. Heart on 06-29-2022 Erythrocyte distribution width (RBC) [Entitic vol] 47.2 fL 35.1-43.9 [facility] Erythrocyte distribution width (RBC) [Ratio] 12.8 % 11.6-14.6 [facility] Immature granulocytes/100 WBC (Bld) 0.400 % 0.0-0.9 [facility] Comment on above: IG% - Immature Granu locytes (promyelocytes, myelocytes and metamyelocytes) > 1% indicates that a LEFT SHIFT is Present. MCH (RBC) [Entitic mass] 33.2 pg 27.0-32.0 [facility] Nucleated RBC/100 WBC (Bld) [Ratio] 0 % 0-5 [facility] MCHC Auto (RBC) [Mass/Vol]Or dered By: Dr. Heart on 06-29-2022 MCHC (RBC) [Mass/Vol] 33.2 g/dL 32-36 [facility] Platelets bldOrdered By: Dr. Heart on 06-29-2022 Platelets (Bld) [#/Vol] 254 10*3/uL 150-450 [facility] Serum or plasma ferritin celine surement (mass/volume)Ordered By: Dr. Heart on 06-29-2022 Ferritin [Mass/Vol] 86 ng/mL 26-[address] [facility] CNOVon 11-19-2016 CNOV Office Visit ([facility]) Harley HUGO ([id number]) 1950 MDate Time Provider Department11/19/16 9:00 AM SRINIVASAN WHITAKER (HEATING AND REFRIGERATION INSPECTOR) [facility] During your visit today, we recorded the following information about you: Temperature Pulse Respiration Blood pressure 98.2 degrees 80/minute 10/minute 122/82 Weight 90.7 kgRosalie Aguilar CNP 11/19/2016 7:50 AM SignedHPIL Shoulder pain that started last evening. Pt was golfing yesterday but deniesany known trauma.Review of SystemsConstitutional: Negative.HENT: Negative.Eyes: Negative.Respiratory: Negative.Cardiovascular: Negative.Gastrointestinal: Negative.Genitourinary: Negative.Musculoskeletal: Positive for myalgias.Skin: Negative.Neurological: Negative.Physical ExamConstitutional: He is oriented to person, place, and time and well-developed,well-nourished, and in no distress.Cardiovascular: Normal rate, regular rhythm and normal heart sounds.Pulmonary/Chest: Effort normal and breath sounds normal.Musculoskeletal:Pain with movement of R shoulder but no pain on palpation. No swelling ordeformities noted.Neurological: He is alert and oriented to person, place, and time. Gait normal.GCS score is 15.Skin: Skin is warm and dry.Psychiatric: Mood, memory, affect and judgment normal.BP 122/82 Pulse 80 Temp 36.8 ?C (98.2 ?F) (Tympanic) Resp 10 Wt 90.7 kg(200 lb) BMI 29.97 kg/m2.Patient presents with:Pain: Left arm X 1 day/night no injury to notePAST MEDICAL HISTORYDiagnosis Date- Esophageal reflux- Essential hypertension, benign- History of hereditary haemorrhagic telangiectasia (HHT)- Other and unspecified hyperlipidemia- Prostate cancer (HCC)PAST SURGICAL HISTORYNo date: PAST SURGICAL HISTORY OF Comment: hernia repair inguinalNo date: PAST SURGICAL HISTORY OF Comment: polyps off vocal cords05/2012: PAST SURGICAL HISTORY OF Comment: Prostate CancerALLERGIES PenicillinsMEDICATIONSamLODIPi ne (NORVASC) 5 mg tablet Take 5 mg by mouth once daily.losartan (COZAAR) 50 mg tablet Take 50 mg by mouth once daily.MULTIVITAMIN WITH MINERALS (MEN'S ONE DAILY ORAL) Take 1 capsule by mouth oncedaily.ferrous sulfate (IRON, FERROUS SULFATE,) 325 mg (65 mg iron) tablet Take 325 mgby mouth three times daily.folic acid 800 mcg tablet Take 800 mcg by mouth once daily.omeprazole (PRILOSEC) 20 mg capsule Take 20 mg by mouth once daily.jktnahx-kqfwtepfl-kogslw n D3 (CALCIUM+D) 500 mg(1,250mg) -200 unit per tabletTake 1 tablet by mouth once daily.valsartan (DIOVAN) 320 mg tablet Take 320 mg by mouth once daily.SIMVASTATIN 80 MG TAB Take one(1) tablet daily.acetaminophen 325 mg-caffeine 40 mg-butalbital 50 mg (FIORICET) per tabletpredniSONE (DELTASONE) 50 mg tab Take 1 tablet by mouth once daily for 6 days.FAMILY HISTORY Cancer Father Comment: lymphoma. Cancer Mother Comment: skin None Sister Comment: hhtSocial HistorySubstance Use Topics- Smoking status: Never Smoker- Smokeless tobacco: Never Used- Alcohol use Yes Comment: sociallyASSESSMENT/PLAN:1. Muscle strain of upper arm, left, initial encounter - ICD9: 840.9, ICD10:S46.912APlan- As pt is unable to tolerate nsaids, he will be given a script forprednisone for inflammation and will continue to use home tylenol. He is torest his arm and do gentle stretches, follow up with his pcp in 5-7 days.- PREDNISONE 50 MG TABLETTim Moomaw, CNPPrescription instructions reviewed with patient as applicable. Patient advisedif symptoms do not improve or if symptoms worsen sooner, to contact the officefor further evaluation by either myself or their primary care physician.Potential red flag symptoms discussed with the patient. Reviewed appropriateaction plan to take if red flag symptoms occur. Patient agreeable to treatmentplan.Zac Michel CNP 11/19/2016 7:46 AM SignedThe [facility], [place] [address]Kptcmjiay DepartmentPhone: Whmkwhbic: AssessmentMUSCLE STRAIN:Your exam shows you have a strained muscle. This means there is a tear or jenelle the muscle due to over-exertion or stretching. Most muscle pulls heal injust a few days; more severe strains may require weeks to heal. Treatment formuscle strains includes: - Rest and protect the affected area until pain with motion is gone. - Apply ice packs every few hours for the next 2-3 days. After two days you can use heat to relieve muscle spasm. - Compression wraps help control swelling and limit movement. - Medicine to reduce pain and inflammation is often useful.Avoid strenuous activities that tend to bring on muscle pain. Exercises tostrengthen and stretch the injured muscle, however, can help heal the strainand prevent repeated injury. Please see your doctor if your strained muscle isnot improving after one week of treatment, or if you have any other concernsabout your injury.Referring Provider: SELF [[id number]]Allergies As of Date: 11/19/2016 Noted Allergy ReactionPENICILLINS 12/02/2007 4 - Hives Comments: SWELLING OF BODYDate Reviewed: 11/19/2016Reviewed by: Mel Newman LPN - Fully AssessedReason for Visit: Pain [78] Cmt: Left arm X 1 day/night no injury to notePrimary Visit Diagnosis:Muscle strain of upper arm, left, initial encounter [S43.942B]Order(s):predniSONE (DELTASONE) 50 mg tabTake 1 tablet by mouth once daily for 6 days.Disp: 6 tabletRfl: 0Prescriptions as of 11/19/2016 Sig: AMLODIPINE 5 MG TABLET Take 5 mg by mouth once daily. LOSARTAN 50 MG TABLET Take 50 mg by mouth once santy* MEN'S ONE DAILY ORAL Take 1 capsule by mouth once * FERROUS SULFATE 325 MG (65 MG* Take 325 mg by mouth three ti* FOLIC ACID 800 MCG TABLET Take 800 mcg by mouth once da* OMEPRAZOLE 20 MG CAPSULE,JOCE* Take 20 mg by mouth once santy* CALCIUM CARBONATE 500 MG (1,2* Take 1 tablet by mouth once d* VALSARTAN 320 MG TABLET Take 320 mg by mouth once jr* * SIMVASTATIN 80 MG TABLET Take one(1) tablet daily. OYCOZEDWUX-[id number]* PREDNISONE 50 MG TABLET Take 1 tablet by mouth once d*Problem List As Of Date 11/19/2016 Noted Resolved Neoplasm of uncertain behavior of skin [D48.5] INVALID FOR*06/09/2010 Actinic keratosis [L57.0] INVALID FOR*06/09/2010 NEVUS////BENIGN SHABBIR SCALP/SKIN NECK [D23.4] INVALID FOR*06/09/2010 SANZ ANGIOMA////NEVUS, NON-NEOPLASTIC [I78.1] INVALID FOR*06/09/2010 ACTINIC DAMAGE///CHR SOLAR SKIN DAMAGE NOS [L57*INVALID FOR* TELANG////CAPILLARY DIS NEC/NOS [I78.9] INVALID FOR*06/09/2010 Hemangioma of skin and subcutaneous tissue [D18*INVALID FOR*06/09/2010 Sanz angiomas: face and R outer upper lip [I7*INVALID FOR* Hemangioma of skin: R outer upper lip [D18.01] INVALID FOR* HHT (hereditary hemorrhagic telangiectasia) [I7*INVALID FOR* Telangiectasia [I78.1] INVALID FOR* Melanocytic nevus of external ear: Intradermal *INVALID FOR* Actinic Keratoses: Premalignant AK's: scalp ar*INVALID FOR* Capillary angiomas [I78.1] INVALID FOR* Spider angioma of skin [I78.1] INVALID FOR* Actinic skin damage [L57.8] INVALID FOR* Solar lentigo [L81.4] INVALID FOR* Other seborrheic keratosis [L82.1] INVALID FOR* Other instructions from your clinician: [facility] [address] [place], [place] [address] Emergency Department Diagnosis: Assessment MUSCLE STRAIN: Your exam shows you have a strained muscle. This means there is a tear or pull in the muscle due to over-exertion or stretching. Most muscle pulls heal in just a few days; more severe strains may require weeks to heal. Treatment for muscle strains includes: - Rest and protect the affected area until pain with motion is gone. - Apply ice packs every few hours for the next 2-3 days. After two days you can use heat to relieve muscle spasm. - Compression wraps help control swelling and limit movement. - Medicine to reduce pain and inflammation is often useful. Avoid strenuous activities that tend to bring on muscle pain. Exercises to strengthen and stretch the injured muscle, however, can help heal the strain and prevent repeated injury. Please see your doctor if your strained muscle is not improving after one week of treatment, or if you have any other concerns about your injury.Prescriptions ordered this encounter Disp Refills Start End PREDNISONE 50 MG TABLET 6 ta* 0 11/19/2016 11/25/2016 Route: ORAL Sig: Take 1 tablet by mouth once daily for 6 days. Status:Closed by ROSALIE AGUILAR CNP on 11/19/16 Normal [facility] PROGRESSon 11-19-2016 PROGRESS HNO ID: [id number] thor: Rosalie (Trang) Robertervice: (none)Author Type: Nurse PractitionerType: Progress NotesFiled: 11/19/2016 7:50 AMNote Text:HPIL Shoulder pain that started last evening. Pt was golfing yesterday butdenies any known trauma.Review of SystemsConstitutional: Negative.HENT: Negative.Eyes: Negative.Respiratory: Negative.Cardiovascular: Negative.Gastrointestinal: Negative.Genitourinary: Negative.Musculoskeletal: Positive for myalgias.Skin: Negative.Neurological: Negative.Physical ExamConstitutional: He is oriented to person, place, and time andwell-developed, well-nourished, and in no distress.Cardiovascular: Normal rate, regular rhythm and normal heart sounds.Pulmonary/Chest: Effort normal and breath sounds normal.Musculoskeletal:Pain with movement of R shoulder but no pain on palpation. No swelling ordeformities noted.Neurological: He is alert and oriented to person, place, and time. Gaitnormal. GCS score is 15.Skin: Skin is warm and dry.Psychiatric: Mood, memory, affect and judgment normal.BP 122/82 Pulse 80 Temp 36.8 ?C (98.2 ?F) (Tympanic) Resp 10 Wt90.7 kg (200 lb) BMI 29.97 kg/m2.Patient presents with:Pain: Left arm X 1 day/night no injury to notePAST MEDICAL HISTORYDiagnosis Date- Esophageal reflux- Essential hypertension, benign- History of hereditary haemorrhagic telangiectasia (HHT)- Other and unspecified hyperlipidemia- Prostate cancer (HCC)PAST SURGICAL HISTORYNo date: PAST SURGICAL HISTORY OF Comment: hernia repair inguinalNo date: PAST SURGICAL HISTORY OF Comment: polyps off vocal cords05/2012: PAST SURGICAL HISTORY OF Comment: Prostate CancerALLERGIES PenicillinsMEDICATIONSamLODIPi ne (NORVASC) 5 mg tablet Take 5 mg by mouth once daily.losartan (COZAAR) 50 mg tablet Take 50 mg by mouth once daily.MULTIVITAMIN WITH MINERALS (MEN'S ONE DAILY ORAL) Take 1 capsule by mouthonce daily.ferrous sulfate (IRON, FERROUS SULFATE,) 325 mg (65 mg iron) tablet [id number] mg by mouth three times daily.folic acid 800 mcg tablet Take 800 mcg by mouth once daily.omeprazole (PRILOSEC) 20 mg capsule Take 20 mg by mouth once daily.rwfmruy-dkztmcrpk-kqlmuz n D3 (CALCIUM+D) 500 mg(1,250mg) -200 unit pertablet Take 1 tablet by mouth once daily.valsartan (DIOVAN) 320 mg tablet Take 320 mg by mouth once daily.SIMVASTATIN 80 MG TAB Take one(1) tablet daily.acetaminophen 325 mg-caffeine 40 mg-butalbital 50 mg (FIORICET) per tabletpredniSONE (DELTASONE) 50 mg tab Take 1 tablet by mouth once daily for 6days.FAMILY HISTORY Cancer Father Comment: lymphoma. Cancer Mother Comment: skin None Sister Comment: hhtSocial HistorySubstance Use Topics- Smoking status: Never Smoker- Smokeless tobacco: Never Used- Alcohol use Yes Comment: sociallyASSESSMENT/PLAN:1. Muscle strain of upper arm, left, initial encounter - ICD9: 840.9,ICD10: S46.912APlan- As pt is unable to tolerate nsaids, he will be given a script forprednisone for inflammation and will continue to use home tylenol. He isto rest his arm and do gentle stretches, follow up with his pcp in 5-7days.- PREDNISONE 50 MG TABLETTim Moomaw, CNPPrescription instructions reviewed with patient as applicable. Patientadvised if symptoms do not improve or if symptoms worsen sooner, tocontact the office for further evaluation by either myself or [facility]. Potential red flag symptoms discussed with thepatient. Reviewed appropriate action plan to take if red flag symptomsoccur. Patient agreeable to treatment plan.Rosalie Moomaw, WORKFORCE SERVICES REPRESENTATIVE Normal [facility] ECG B/O W INTERP (MED OFFICE ) [facility] Vital Signs Date Time Vital Sign Value Performing Clinician Facility 08-24-2023 14:11-0400 Body height 175.3 cm Sharri Dimas MD Work Phone: [facility] 08-24-2023 14:11-0400 Body mass index (BMI) [Ratio] 29.06 kg/m2 Sharri Dimas MD Work Phone: [facility] 08-24-2023 14:11-0400 Body temperature 97.9 [degF] Sharri Dimas MD Work Phone: [facility] 08-24-2023 14:11-0400 Body weight 89.27 kg Sharri Dimas MD Work Phone: [facility] 08-24-2023 14:11-0400 Diastolic blood pressure 60 mm[Hg] Sharri Dimas MD Work Phone: [facility] 08-24-2023 14:11-0400 Heart rate 67 /min Sharri Dimas MD Work Phone: [facility] 08-24-2023 14:11-0400 Respiratory rate 16 /min Sharri Dimas MD Work Phone: [facility] 08-24-2023 14:11-0400 SaO2% (BldA) [Mass fraction] 95 % Sharri Dimas MD Work Phone: [facility] 08-24-2023 14:11-0400 Systolic blood pressure 105 mm[Hg] Sharri Dimas MD Work Phone: [facility] 03-09-2023 14:21-0500 Body height 175.3 cm Nidia Mcdaniel MD Work Phone: [facility] 03-09-2023 14:21-0500 Body weight 84.82 kg Nidia Mcdaniel MD Work Phone: [facility] 03-09-2023 14:21-0500 Diastolic blood pressure 64 mm[Hg] Nidia Mcdaniel MD Work Phone: [facility] 03-09-2023 14:21-0500 Heart rate 71 /min Nidia Mcdaniel MD Work Phone: [facility] 03-09-2023 14:21-0500 Respiratory rate 18 /min Nidia Mcdaniel MD Work Phone: [facility] 03-09-2023 14:21-0500 SaO2% (BldA) [Mass fraction] 96 % Nidia Mcdaniel MD Work Phone: [facility] 03-09-2023 14:21-0500 Systolic blood pressure 122 mm[Hg] Nidia Mcdaniel MD Work Phone: [facility] 01-27-2023 11:26-0400 Body height 175.[address] Ike Heart Work Phone: [facility] 01-27-2023 11:26-0400 Body mass index (BMI) [Ratio] 27.4 kg/m2 Dr. Ike Heart Work Phone: [facility] 01-27-2023 11:26-0400 Body weight 84.[address] Ike Heart Work Phone: [facility] 01-27-2023 11:26-0400 Diastolic blood pressure 79 mm[Hg] Dr. Ike Heart Work Phone: [facility] 01-27-2023 11:26-0400 Heart rate 69 /min Dr. Ike Heart Work Phone: [facility] 01-27-2023 11:26-0400 Respiratory rate 16 /min Dr. Ike Heart Work Phone: [facility] 01-27-2023 11:26-0400 Systolic blood pressure 143 mm[Hg] Dr. Ike Heart Work Phone: [facility] 07-16-2022 14:09-0400 Body height 175.3 cm Sharri Dimas MD Work Phone: [facility] 07-16-2022 14:09-0400 Body mass index (BMI) [Ratio] 30.1 kg/m2 Sharri Dimas MD Work Phone: [facility] 07-16-2022 14:09-0400 Body temperature 98.49 [degF] Sharri Dimas MD Work Phone: [facility] 07-16-2022 14:09-0400 Body weight 92.44 kg Sharri Dimas MD Work Phone: [facility] 07-16-2022 14:09-0400 Diastolic blood pressure 71 mm[Hg] Sharri Dimas MD Work Phone: [facility] 07-16-2022 14:09-0400 Heart rate 73 /min Sharri Dimas MD Work Phone: [facility] 07-16-2022 14:09-0400 Respiratory rate 16 /min Sharri Dimas MD Work Phone: [facility] 07-16-2022 14:09-0400 SaO2% (BldA) [Mass fraction] 96 % Sharri Dimas MD Work Phone: [facility] 07-16-2022 14:09-0400 Systolic blood pressure 130 mm[Hg] Sharri Dimas MD Work Phone: [facility] Encounters Encounter Date Encounter Type Care Provider Facility Start: 04-06-2024 End: 04-06-2024 ambulatory Ike Heart Facility:[facility] Start: 12-07-2023 End: 12-07-2023 ambulatory Robyn Jose Miguel Facility:[facility] Start: 08-24-2023 ambulatory ART HADLEY Facility:[facility] Start: 08-24-2023 End: 08-24-2023 Office outpatient visit 25 minutes Sharri Dimas MD Work Phone: [facility] Comment on above: Malignant neoplasm o f prostate (Primary Dx) Start: 03-09-2023 End: 03-09-2023 ambulatory IKE HEART Facility:[facility] Start: 03-09-2023 End: 03-09-2023 Patient encounter procedure Nidia Mcdaniel MD Work Phone: [facility] Cardiology [facility] Comment on above: PAF (paroxysmal atri al fibrillation) (HCC) (Primary Dx); Palpitations; At risk for stroke; At risk for bleeding associated with anticoagulants; HHT (hereditary hemorrhagic telangiectasia) (HCC); History of GI bleed Start: 02-11-2023 Non-patient / Non-visit Dr. Cristina Heart Work Phone: [facility] Work Phone: Start: 02-10-2023 Non-patient / Non-visit Dr. Cristina Heart Work Phone: [facility] Start: 02-10-2023 End: 02-10-[address] Iek Heart Work Phone: [facility] Work Phone: Start: 02-10-2023 End: 02-10-[address] Ike Heart Work Phone: [facility] Work Phone: Start: 01-27-2023 End: 01-27-[address] Ike Heart Work Phone: [facility] Work Phone: Start: 01-27-2023 End: 01-27-[address] Ike Heart Work Phone: [facility] Work Phone: Start: 01-22-2023 Non-patient / Non-visit Dr. Cristina Heart Work Phone: [facility] Start: 01-22-2023 End: 01-22-[address] Ike Heart Work Phone: [facility] Work Phone: Start: 01-08-2023 End: 01-08-[address] Ike Heart Work Phone: [facility] Work Phone: Start: 12-23-2022 End: 12-23-2022 ambulatory [facility] Work Phone: Start: 12-23-2022 End: 12-23-2022 [facility] Start: 12-17-2022 End: 12-17-2022 ambulatory [facility] Work Phone: Start: 12-17-2022 End: 12-17-2022 Patient encounter procedure [facility] Work Phone: Start: 12-16-2022 End: 12-16-2022 ambulatory [facility] Work Phone: Start: 12-16-2022 End: 12-16-2022 Patient encounter procedure [facility] Work Phone: Start: 10-27-2022 End: 10-27-2022 ambulatory [facility] Work Phone: Start: 10-27-2022 End: 10-27-2022 Patient encounter procedure [facility] Start: 07-16-2022 End: 07-16-2022 Office outpatient visit 15 minutes Sharri Dimas MD Work Phone: [facility] Comment on above: Malignant neoplasm o f prostate (Primary Dx) Start: 06-29-2022 End: 06-29-2022 ambulatory [facility] Work Phone: Start: 06-29-2022 End: 06-29-2022 Patient encounter procedure [facility], Robert Chavarria [facility] Start: 11-19-2016 End: 11-20-2016 Ambulatory SRINIVASAN Abrams (BHUPENDRA) JENNY [facility] Start: 09-14-2012 Patient encounter procedure Sharri Dimas MD Work Phone: [facility] Procedures Date Procedure Procedure Detail Performing Clinician Start: 08-24-2023 PSA screening ART ROJAS Comment on above: Result Comment: Test results cannot be interpreted as absolute evidence for the presence or absence of malignant disease. This test was performed on the [employer] Application IM Immunoassay platform which is a 2-step sandwich chemiluminescent immunoassay. It is important to note that assays using different manufacturers and/or methods may not be comparable. Performed By: #### P SATM #### [facility] (DEFAULT) [address] [place] [address] Start: 03-09-2023 Ecg routine ecg w/le ast 12 lds w/i&r Nidia Mcdaniel MD Work Phone: Start: 01-22-2023 Cardiovascular stres s test using pharmacologic stress agent Dr. Ike Heart Work Phone: Start: 10-27-2022 Clostridium difficil e detection Start: 10-27-2022 Lactoferrin measurement Start: 10-27-2022 Nucleic acid assay Start: 10-27-2022 Ova OR parasites identification Plan of Treatment Date Care Activity Detail Author Start: 08-23-2024 Prostate specific antigen measurement PROSTATE CANCER SCREENING DISCUSSION [facility] Start: 03-09-2024 BP Controlled (<130/80) BP Controlle d (<130/80) [facility] Start: 12-19-2023 Influenza vaccination INFLUENZ A VACCINE (Season Ended) [facility] Start: 07-17-2023 End: 07-17-2023 OUTSIDE LAB ORDERS OUTSIDE LAB ORDERS Outside Labs Routine Malignant neoplasm of prostate Expected: 07/17/2023, Expires: 07/17/2023 [facility] Work Phone: Comment on above: Expected: 07/17/2023 , Expires: 07/17/2023 Start: 07-17-2023 Prostate specific antigen measurement PROSTATE CANCER SCREENING DISCUSSION [facility] Start: 07-16-2023 End: 07-16-2023 PSA - DIAGNOSTIC/TUMOR MARKER PSA - DIAGNOSTIC/TUMOR MARKER Lab Routine Malignant neoplasm of prostate Expected: 07/16/2023, Expires: 07/16/2023 [facility] Comment on above: Expected: 07/16/2023 , Expires: 07/16/2023 Start: 07-16-2023 End: 07-16-2023 Testosterone [Mass/volume] in Serum or Plasma TESTOSTERONE Lab Routine Malignant neoplasm of prostate Expected: 07/16/2023, Expires: 07/16/2023 [facility] Comment on above: Expected: 07/16/2023 , Expires: 07/16/2023 Start: 01-27-2023 Patient referral [facility] Work Phone: Start: 12-18-2022 Covid-19 Vaccine ( season) Covid-19 Vaccine ( season) [facility] Start: 12-18-2022 Influenza vaccination Influenza Vacc ine (#1) [facility] Start: 04-19-2022 Advance Directive Discussion Advance Directive Discussion [facility] Start: 04-19-2022 Depression Assessment Depression Ass essment [facility] Start: 12-18-2021 Influenza vaccination INFLUENZA VACC INE (#1) [facility] Start: 09-19-2021 Pneumococcal vaccination [facility] Start: 03-27-2021 COVID-19 VACCINE (4 - Booster for Pfizer series) COVID-19 VACCINE (4 - Booster for Pfizer series) [facility] Start: 09-21-2017 Diabetes Screening Diabetes Screenin g [facility] Start: 02-07-2014 Potassium [Moles/vol ume] in Serum or Plasma POTASSIUM [facility] Start: 2013 Pneumococcal Vaccine : 65+ (1 - PCV) Pneumococcal Vaccine: 65+ (1 - PCV) [facility] Start: 2008 RSV Vaccine (1 - 1-d ose 60+ series) RSV Vaccine (1 - 1-dose 60+ series) [facility] Start: 1998 Shingrix Vaccine (1 of 2) Shingrix Vaccine (1 of 2) [facility] Start: 1993 Cologuard (FIT-DNA) Cologuard (FIT-D NA) [facility] Start: 1993 Colonoscopy Colonoscopy [facility] Start: 1993 Colorectal Cancer Screening Colorectal Cancer Screening [facility] Start: [address]ography [facility] Start: 1993 Fecal Occult Blood Fecal Occult Bloo d [facility] Start: 1993 Screening for malign ant neoplasm of colon COLORECTAL CANCER SCREENING DISCUSSION [facility] Start: 1993 Sigmoidoscopy Sigmoidoscopy [facility] Start: 1988 Lipid panel LIPID SCREENING [facility] Start: 1983 Lipid 1996 panel - S lavon or Plasma Lipid Screening [facility] Start: 1967 Third diphtheria, tetanus and acellular pertussis (DTaP) vaccination TDAP (ADULT) [facility] Start: 1967 Urine microalbumin profile DTaP,Tdap,Td Vaccine (1 - Tdap) [facility] Start: 1966 Annual PCP Team Leather Whitener dayami Disease Visit Annual PCP Team Chronic Disease Visit [facility] Start: 1966 Hepatitis C Screening Hepatitis C Sc kayleyning [facility] Start: 1948 Hepatitis C screening HEPATITI S C VIRUS SCREENING [facility] Start: 1948 Tetanus vaccination TETANUS [facility] Ova and parasites identified in Unspecified specimen by Light microscopy [facility] Patient referral [facility] Work Phone: [facility] Immunizations Immunization Date Immunization Notes Care Provider Fa loriety 01-30-2021 COVID-19 vaccine, mRNA, Pfizer, 0.3 ML Sharri iDmas MD Work Phone: [facility] 07-11-2020 Covid (Pfizer) [facility] 06-20-2020 Covid (Pfizer) [facility] 01-18-2016 Influenza virus vaccine [facility] 01-18-2016 influenza, seasonal, injectable Nidia Mcdaniel MD Work Phone: [facility] Work Phone: 01-18-2016 influenza virus vaccine, unspecified formulation Sharri Dimas MD Work Phone: [facility] Payers Date Payer Category Payer Self-pay [id number] 2023 Private Health Insurance [id number] 2011 Private Health Insurance [id number] 2011 Private Health Insurance [id number] 1948 Unknown [id number] 1948 Unknown [id number] Medicare MEDICARE A ONLY [id number] Unknown [id number] Unknown [id number] Social History Date Type Detail Facility Start: 01-02-2020 End: 01-27-2023 Tobacco smoking status NHIS Unknown if ever smoked [facility] Start: 06-26-2018 None [facility] Start: 06-26-2018 Spouse/ Signif icant Other [facility] Start: 12-08-2019 Non-smoker [facility] Start: 1950 Sex Assigned At Male [facility] Start: 07-06-2012 Tobacco smoking stat us NHIS Never smoked tobacco [facility] Start: 07-06-2012 Tobacco use and exposure Smokeless tobacco non-user [facility] Start: 07-16-2022 End: 08-24-2023 Alcohol intake Current drinker of alcohol (finding) [facility] Start: 07-16-2022 End: 08-24-2023 Alcohol intake [facility] Start: 1950 Sex Assigned At Not on file O [facility] Start: 07-16-2022 End: 03-09-2023 Tobacco use panel [facility] National Score (1-10 0), lower number is lower risk 66 [facility] Gender identity Identifies as ma le gender (finding) [facility] Start: 06-22-2018 Sexual orientation Heterosexual (fin ding) [facility] Medical Equipment Procedure Code Equipment Code Equipment Origin al Text Equipment Identifier Dates Touch Titan [id number] Start: 02-23-2013 Inflatable Penil e Prosthesis Titan Assembly Kit [id number] Start: 02-23-2013 Titan Cl Irvona [id number] Start: 02-23-2013 Clinical Notes 08-23-2008 to 08-24-2023 Sharri Dimas MD - 08/24/2023 2:00 PM EDTPatient Nidia Wiggins MD - 03/09/2023 2:20 PM Florina Yoder MA - 03/09/2023 2:20 PM Negro Dimas MD - 07/16/2022 2:20 PM EDT Note Date & Type Note Facility 08-24-2023 History of Present illness Narrative Chief Complaint: High risk prostate cancer HPI: Harley Goldman is a 73 y.o. male with a past medical history significant for HHT (hereditary hemorrhagic telangiectasia) (1979); Anemia; Essential hypertension, benign; GERD (gastroesophageal reflux disease); Hyperlipidemia, who was found to have prostate cancer on TRUS needle biopsy done on 04/05/12 for elevated PSA of 4.89 ng/ml (02/23/12). Biopsy showed a Raven sum of 5+4, 3+4 and 3+3 disease , involving both right and left lobe, 9/12 cores were positive, involving 5-60% of the core ([id number], stage-II). CT abd/pelvis from 04/16/12 showed no evidence of metastatic disease and non-specific retroperitoneal lymph nodes measuring less than 10mm. Bone scan done on 04/16/12 showed no evidence of metastatic disease, but showed increased uptake in the cervical, thoracic and lumbar spine, right shoulder, b/l wrists, left-right mid foot and left forefoot c/w DJD. Patient mentioned diagnosed with HHT around 20 yrs back on colonoscopy which was done as a work up for anemia. His last colonoscopy was around 5 yrs back. He consented for treatment on CALGB [id number] trial which is a Randomized Phase III Study of Shabbir-Adjuvant Docetaxel and Androgen Deprivation Prior to Radical Prostatectomy versus Immediate Radical Prostatectomy in Patients with High-Risk, Clinically Localized Prostate Cancer. Patient randomized to surgery arm and underwent RARP by Dr Alonzo on 06/14/12. Pathology showed derick 4+3 = 7 prostate adenocarcinoma, involving 17% of both lobes, with negative margins/EPE/seminal vesicles invasion and 0/11 LN positive. pTNM: ypT2c N0. Since than, he is on clinical surveillance and remains with no evidence of recurrent disease. Interim History: Patient is here today for follow up while on surveillance. Gets Q 3 month PSA. Last one done on 07/02/23 was undetectable. Saw cardiology at [facility] 03/09/23 for paroxysmal Afib that was found during cardiac monitoring done 12/2022. He had a complicated case d/t history of hereditary hemorrhagic telangiectasia. He feels well. 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 No new issues. Urinary sx same, still wearing 1 ppd per day for occasional urinary dribbling, decreased stream, unchanged. No hot flashes or bone pain. Past Medical History: He has a past medical history of A-fib, Anemia, Carpal tunnel syndrome, Colitis, ischemic, Essential hypertension, benign, GERD (gastroesophageal reflux disease), GI bleed (04/2016), H/O Clostridium difficile infection (04/2016), HHT (hereditary hemorrhagic telangiectasia) (1979), Hyperlipidemia, and Prostate cancer. He has no past medical history of Postoperative nausea and vomiting or Vascular disease. Past Surgical History: Past Surgical History: Procedure Laterality Date SHOULDER REPLACEMENT Left 04/23/2020 HAND SURGERY Right 04/2019 knuckle replacement INSERTION PROSTHESIS PENILE INFLATABLE MULTI-COMPONENT N/A 02/23/2013 Laterality: N/A; Surgeon: Iván Snow MD; Location: [facility] PROSTATECTOMY RETROPUBIC RADICAL ROBOTIC N/A 06/14/2012 Laterality: N/A; Surgeon: David Alonzo MD; Location: [facility] MAIN OR LYMPHADENECTOMY PELVIC TOTAL ROBOTIC N/A 06/14/2012 Laterality: N/A; Surgeon: David Alonzo MD; Location: [facility] MAIN OR BIOPSY PROSTATE 04/05/2012 Derick 5+4=9, 3+4=7 (x3), 3+3=6. PSA = 4.89 ELBOW BURSA SURGERY HERNIA REPAIR KNEE ARTHROSCOPY RELEASE CARPAL TUNNEL Right Social History: He reports that he has never smoked. He has never used smokeless tobacco. He reports current alcohol use of about 5.8 standard drinks of alcohol per week. He reports that he does not use drugs. Family History: He family history includes Cancer- Other in his father; Other - Specify in his father. Family Status Relation Name Status Father Mother Sister Alive Brother Alive Dariel Alive Dariel Alive Neg Hx (Not Specified) Current Medications: Current Outpatient Medications Medication Sig amLODIPine 5 MG tablet Take 1 tablet by mouth daily. Calcium Carbonate-Vitamin D (CALCIUM 500 + D PO) take 1 Tab by mouth daily every morning. esomeprazole [address] capsule esomeprazole ESOMEPRAZOLE MAGNESIUM 40 MG CPDR 1 capsule daily ESOMEPRAZOLE MAGNESIUM [id number] [facility] ([id number]) Ferrous Sulfate (SLOW FE PO) Take 325 mg by mouth 2 times daily. FOLIC ACID PO take 1 Tab by mouth daily every morning. hydroCHLOROthiazide 25 MG tablet Take 1 tablet by mouth daily. losartan 100 MG tablet Take 1 tablet by mouth daily. Metoprolol 100 MG tab regular release Take 1 tablet by mouth 2 times daily. Multiple Vitamins-Minerals (MULTIVITAMIN PO) take 1 Tab by mouth daily every morning. simvastatin 40 MG tablet Take 1 tablet by mouth every evening. Turmeric (QC TUMERIC COMPLEX PO) Take by mouth. cetirizine 10 MG Tab tablet Take 1 tablet by mouth daily as needed. (Patient not taking: Reported on 08/24/2023) Allergies: Penicillin g Review of Systems A complete ROS was performed and all the pertinent findings were mentioned in HPI/interim history. The rest of ROS was otherwise negative. Physical Examination BP 105/60 Pulse 67 Temp 97.9 F (36.6 C) Resp 16 Ht 1.753 m (5' 9) Wt 89.3 kg (196 lb 12.8 oz) SpO2 95% BMI 29.06 kg/m Smoking Status Never General Appearance: Alert and oriented x3, in no acute distress. ECOG PS = 0 HEENT: Head atraumatic,normocephalic.Pupils equal, round, reactive to light. No scleral icterus.Mask on, previous visit, mucous membranes moist, no lesions. Neck: Supple, No palpable lymphadenopathy. Lungs: Clear to auscultation bilaterally. Normal respiratory effort. No w/r/r. Cardiac: Normal S1, S2. Rate and rhythm regular today, in past irregular with premature beats. No murmur, gallop or rub. GI: Abdomen is soft, nontender, nondistended, positive bowel sounds. No palpable hepatosplenomegaly. Extremities: No cyanosis, clubbing or edema. No bilateral lower extremity edema Neuro: CN 2-12 grossly intact. Speech is clear and appropriate. No focal spinal tenderness. Lymph: No palpable cervical, supraclavicular, axillary adenopathy. Musculoskeletal: No tenderness with palpation of ribs or vertebrae. No joint inflammation or swelling. Psych: Pleasant affect. No sign of agitation . Skin: No rash, excessive bruising, petechiae. LABS: Lab Results Component Value Date PSA <0.04 08/24/2023 PSA <0.04 07/16/2022 PSA <0.06 06/19/2021 PSA <0.06 06/20/2020 PSA 0.04 06/22/2019 PSA 0.04 06/23/2018 PSA <0.04 12/28/2017 PSA <0.04 06/29/2017 PSA <0.04 12/29/2016 PSA <0.04 06/30/2016 PSA <0.04 12/31/2015 PSA <0.01 10/02/2015 PSA 0.03 07/04/2015 PSA 0.02 04/04/2015 PSA <0.01 12/25/2014 PSA 0.03 09/18/2014 PSA 0.03 06/13/2014 PSA 0.01 03/22/2014 PSA <0.01 12/06/2013 PSA 0.01 09/13/2013 PSA 0.01 06/14/2013 PSA <0.1 03/06/2013 PSA <0.01 12/08/2012 PSA <0.01 09/06/2012 PSA 0.05 07/06/2012 PSA 3.97 06/14/2012 PSA 4.22 (H) 05/11/2012 Lab Results Component Value Date TESTOSTERONE 298 07/16/2022 Assessment and Plan: High risk Prostate cancer (pT2c,N0), participated in [facility] [id number] randomized to surgery arm: Doing well. No clinical finding of recurrent disease. PSA has remained undetectable. Testosterone normal. He is more than 10 years out. He lives far and prefers to withdraw from research labs and have PSA annually close to home. Results will be sent to us. RTC open. Stress incontinence: Stable. Occasional urinary dribbling. ED: Underwent Insertion of multi-component penile prosthetic-Coloplast Titan on 02/23/[address] Snow with good results. 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 - Continues on iron supplementation. EGD as needed. Says these sx happen about every 5 yrs. Follows closely with map clerk. - 05/15/2016 hospitalization for GI bleed. Resolved. Has had EGD at that time. and colonoscopy within last 5 years. Sharri Dimas MD documented in this encounter [facility] 08-24-2023 Instructions Sharri Dimas MD - 08/24/2023 2:00 PM EDT RTC open documented in this encounter [facility] 03-09-2023 Note HNO ID: [id number] Author: Nidia Mcdaniel MD Service: ? Author Type: Physician Type: Progress Notes Filed: 03/09/2023 7:34 PM Note Text: PRIMARY CARE PHYSICIAN: Ike Heart [address] [place] [address] REFERRING PHYSICIAN: Robyn Barreto [address] [facility] [id number] Patient Care Team: Ike Heart DO as PCP - General (Family Medicine) Robyn Barreto MD as Specialty Clinical Psychiatrist (Cardiology) Tylor Bui MD as Specialty Clinical Psychiatrist (Gastroenterology) CHIEF COMPLAINT: Evaluation for arrhythmia, atrial fibrillation HISTORY OF PRESENT ILLNESS: Mr. Goldman is a 72 year old male who presents today for evaluation of paroxysmal atrial fibrillation. He is referred by Dr. Barreto of [facility]. Mr. Goldman states the atrial fibrillation was diagnosed about 6 - 8 months ago, but was experiencing symptoms a few months prior to that. Episodes of tightness in chest, tachycardia, palpitations. Episodes would last for several minutes to an hour or two. At one point he was experiencing multiple episodes every day. He was evaluated by PCP. He was referred to Dr. Barreto of [facility]. He wore stitch bonding machine drawer in December 2022, this revealed paroxysmal atrial fibrillation. Nuclear stress test in January was unremarkable. He has been treated with metoprolol and noted improvement. Still has symptoms but not as frequently, lasting a few minutes. States he cannot always tell if/when he is in atrial fibrillation --- was in atrial fibrillation with HR low 100s bpm range here in the office and was not much aware of it. He denies chest pain, orthopnea, PND, syncope. Thus far he has been treated with a beta-joo medication for ventricular rate control. He has not been treated with oral anticoagulation or even aspirin due to the potential for bleeding complications given his history of hereditary hemorrhagic telangiectasia. He has not had major GI bleeding in the past, such as bleeding that would require hospitalization and blood transfusions. However he does have some degree of anemia from chronic GI blood loss, sometimes the blood counts get low enough that he has to increase the iron supplement dosage. He states that he has been told in the past that he should not take anticoagulant medications or medications such as aspirin. Mr. Goldman is referred for evaluation to discuss the treatment options for the atrial fibrillation. I have confirmed and edited as necessary, the PFSH and ROS obtained by others. PAST MEDICAL HISTORY Diagnosis Date Anemia At risk for bleeding associated with anticoagulants At risk for stroke Erectile dysfunction Esophageal reflux Essential hypertension, benign Fatty liver disease, nonalcoholic GERD (gastroesophageal reflux disease) GI bleed Hiatal hernia History of GI bleed History of hereditary haemorrhagic telangiectasia (HHT) Mixed hyperlipidemia Obesity Other and unspecified hyperlipidemia PAF (paroxysmal atrial fibrillation) (HCC) Palpitations Prostate cancer (HCC) Secondary pulmonary arterial hypertension (HCC) Tricuspid valve insufficiency, non-rheumatic PAST SURGICAL HISTORY Procedure Laterality Date FINGER SURGERY HX finger KNEE SURGERY HX Right right knee surgery LAP RETROPUBIC PROSTATECTOMY 06/13/2012 Prostate Cancer LAPAROSCOPIC HERNIA REPAIR Right hernia repair inguinal LASER VOCAL CORD POLYP polyps off vocal cords REVISE MEDIAN N/CARPAL TUNNEL SURG SHOULDER SURGERY HX Left 04/23/2020 left shoulder replacement SOCIAL HISTORY Social History Tobacco Use Smoking status: Never Smokeless tobacco: Never Substance Use Topics Alcohol use: Yes Comment: socially Drug use: No FAMILY HISTORY Problem Relation Age of Onset Skin Cancer Mother Arthritis Mother Lymphoma Father other (hereditary hemorrhagic telangiectasia) Father HHT Rheumatic Fever Father also had heart murmur attributed to the rheumatic fever other (hereditary hemorrhagic telangiectasia) Sister HHT other (hereditary hemorrhagic telangiectasia) Brother HHT No Known Problems Daughter No Known Problems Daughter ALLERGIES: ALLERGIES Allergen Reactions Penicillins Hives SWELLING OF BODY MEDICATIONS: hydroCHLOROthiazide 25 mg tablet Take 1 tablet by mouth every afternoon. esomeprazole (NEXIUM) 40 mg capsule Take 40 mg by mouth once daily. metoprolol tartrate, short acting, (LOPRESSOR) 25 mg tablet Take 1 tablet by mouth every 12 hours. amLODIPine (NORVASC) 10 mg tablet Take 1 tablet by mouth every afternoon. losartan (COZAAR) 100 mg tablet Take 1 tablet by mouth every afternoon. simvastatin (ZOCOR) 40 mg tablet Take 1 tablet by mouth every afternoon. MULTIVITAMIN WITH MINERALS (MEN'S ONE DAILY ORAL) Take 1 capsule by mouth once daily. ferrous sulfate (IRON, FERROUS SULFATE,) 325 mg (65 mg iron) tablet Take (more content not included)... [facility] 03-09-2023 History of Present illness Narrative PRIMARY CARE PHYSICIAN: Ike Heart [address] [place] [address] REFERRING PHYSICIAN: Robyn Barreto [address] [facility] [address] Patient Care Team: Ike Heart DO as PCP - General (Family Medicine) Robyn Barreto MD as Specialty Clinical Psychiatrist (Cardiology) Tylor Bui MD as Specialty Clinical Psychiatrist (Gastroenterology) CHIEF COMPLAINT: Evaluation for arrhythmia, atrial fibrillation HISTORY OF PRESENT ILLNESS: Mr. Goldman is a 72 year old male who presents today for evaluation of paroxysmal atrial fibrillation. He is referred by Dr. Barreto of [facility]. Mr. Goldman states the atrial fibrillation was diagnosed about 6 - 8 months ago, but was experiencing symptoms a few months prior to that. Episodes of tightness in chest, tachycardia, palpitations. Episodes would last for several minutes to an hour or two. At one point he was experiencing multiple episodes every day. He was evaluated by PCP. He was referred to Dr. Barreto of [facility]. He wore stitch bonding machine drawer in December 2022, this revealed paroxysmal atrial fibrillation. Nuclear stress test in January was unremarkable. He has been treated with metoprolol and noted improvement. Still has symptoms but not as frequently, lasting a few minutes. States he cannot always tell if/when he is in atrial fibrillation --- was in atrial fibrillation with HR low 100s bpm range here in the office and was not much aware of it. He denies chest pain, orthopnea, PND, syncope. Thus far he has been treated with a beta-joo medication for ventricular rate control. He has not been treated with oral anticoagulation or even aspirin due to the potential for bleeding complications given his history of hereditary hemorrhagic telangiectasia. He has not had major GI bleeding in the past, such as bleeding that would require hospitalization and blood transfusions. However he does have some degree of anemia from chronic GI blood loss, sometimes the blood counts get low enough that he has to increase the iron supplement dosage. He states that he has been told in the past that he should not take anticoagulant medications or medications such as aspirin. Mr. Goldman is referred for evaluation to discuss the treatment options for the atrial fibrillation. I have confirmed and edited as necessary, the PFSH and ROS obtained by others. PAST MEDICAL HISTORY Diagnosis Date Anemia At risk for bleeding associated with anticoagulants At risk for stroke Erectile dysfunction Esophageal reflux Essential hypertension, benign Fatty liver disease, nonalcoholic GERD (gastroesophageal reflux disease) GI bleed Hiatal hernia History of GI bleed History of hereditary haemorrhagic telangiectasia (HHT) Mixed hyperlipidemia Obesity Other and unspecified hyperlipidemia PAF (paroxysmal atrial fibrillation) (HCC) Palpitations Prostate cancer (HCC) Secondary pulmonary arterial hypertension (HCC) Tricuspid valve insufficiency, non-rheumatic PAST SURGICAL HISTORY Procedure Laterality Date FINGER SURGERY HX finger KNEE SURGERY HX Right right knee surgery LAP RETROPUBIC PROSTATECTOMY 06/13/2012 Prostate Cancer LAPAROSCOPIC HERNIA REPAIR Right hernia repair inguinal LASER VOCAL CORD POLYP polyps off vocal cords REVISE MEDIAN N/CARPAL TUNNEL SURG SHOULDER SURGERY HX Left 04/23/2020 left shoulder replacement SOCIAL HISTORY Social History Tobacco Use Smoking status: Never Smokeless tobacco: Never Substance Use Topics Alcohol use: Yes Comment: socially Drug use: No FAMILY HISTORY Problem Relation Age of Onset Skin Cancer Mother Arthritis Mother Lymphoma Father other (hereditary hemorrhagic telangiectasia) Father HHT Rheumatic Fever Father also had heart murmur attributed to the rheumatic fever other (hereditary hemorrhagic telangiectasia) Sister HHT other (hereditary hemorrhagic telangiectasia) Brother HHT No Known Problems Daughter No Known Problems Daughter ALLERGIES: ALLERGIES Allergen Reactions Penicillins Hives SWELLING OF BODY MEDICATIONS: hydroCHLOROthiazide 25 mg tablet Take 1 tablet by mouth every afternoon. esomeprazole (NEXIUM) 40 mg capsule Take 40 mg by mouth once daily. metoprolol tartrate, short acting, (LOPRESSOR) 25 mg tablet Take 1 tablet by mouth every 12 hours. amLODIPine (NORVASC) 10 mg tablet Take 1 tablet by mouth every afternoon. losartan (COZAAR) 100 mg tablet Take 1 tablet by mouth every afternoon. simvastatin (ZOCOR) 40 mg tablet Take 1 tablet by mouth every afternoon. MULTIVITAMIN WITH MINERALS (MEN'S ONE DAILY ORAL) Take 1 capsule by mouth once daily. ferrous sulfate (IRON, FERROUS SULFATE,) 325 mg (65 mg iron) tablet Take 325 mg by mouth two times a day. folic acid 800 mcg tablet Take 800 mcg by mouth once daily. baagokq-tupgiquqi-owsjrsh D3 (CALCIUM+D) 500 mg(1,250mg) -200 unit per tablet Take 1 tablet by mouth once daily. REVIEW OF SYSTEMS: Review of Systems Constitutional: Positive for malaise/fatigue. Negative for chills, fever and weight loss. Respiratory: Positive for shortness of breath. Negative for cough, hemoptysis, sputum production and wheezing. Cardiovascular: Positive for palpitations. Negative for chest pain, orthopnea, claudication, leg swelling and PND. Gastrointestinal: Negative for abdominal pain, blood in stool, melena, nausea and vomiting. Genitourinary: Negative for dysuria and hematuria. Musculoskeletal: Negative for falls. Skin: Negative for rash. Neurological: Positive for dizziness. Negative for focal weakness, seizures and loss of consciousness. PHYSICAL EXAMINATION: BP 122/64 Pulse 71 Resp 18 Ht 5' 9 (1.75m) Wt 187 lb (84.8kg) SpO2 96[room air]% BMI 27.60 kg/(m^2). Physical Exam Vitals reviewed. Constitutional: General: He is not in acute distress. Appearance: Normal appearance. HENT: Head: Normocephalic and atraumatic. Cardiovascular: Rate and Rhythm: Tachycardia present. Rhythm irregularly irregular. Heart sounds: S1 normal and S2 normal. Murmur heard. Systolic murmur is present with a grade of 1/6. No friction rub. Pulmonary: Effort: Pulmonary effort is normal. No respiratory distress. Breath sounds: Normal breath sounds. No wheezing, rhonchi or rales. Musculoskeletal: Cervical back: Neck supple. Right lower leg: No edema. Left lower leg: No edema. Skin: General: Skin is warm and dry. Neurological: General: No focal deficit present. Mental Status: He is alert and oriented to person, place, and time. Psychiatric: Mood and Affect: Mood normal. Behavior: Behavior normal. Thought Content: Thought content normal. CARDIOVASCULAR MEDICINE TESTING: Electrocardiogram: Atrial fibrillation with moderately rapid ventricular response, average 105 bpm; normal QRS duration 80 ms; QTc 486 ms; nonspecific ST abnormality I have personally reviewed the Electrocardiogram. 1. PAF (paroxysmal atrial fibrillation) (HCC) - ICD9: 427.31, ICD10: I48.0 (primary diagnosis) 2. Palpitations - ICD9: 785.1, ICD10: R00.2 3. At risk for stroke - ICD9: V15.89, ICD10: Z91.89 4. At risk for bleeding associated with anticoagulants - ICD9: V15.89, ICD10: Z91.89 5. HHT (hereditary hemorrhagic telangiectasia) (HCC) - ICD9: 448.0, ICD10: I78.0 6. History of GI bleed - ICD9: V12.79, ICD10: Z87.19 CHADS2-Vasc Score Breakdown 2 Total Score 1 Age 65-74 years old* 1 History of hypertension In 11 days on 2023 he will turn 73 years old, which is 2 points, so score will become 3 IMPRESSION: Mr. Goldman presents as a substantial challenge for the management of multiple facets of atrial fibrillation. He has had symptoms attributable to this arrhythmia, although more so when the ventricular rates were more rapid. With treatment with a beta-joo, his symptoms have already decreased quite a bit. Perhaps with additional optimization of ventricular rate control he might be rendered minimally symptomatic or asymptomatic. I did have a detailed discussion with Mr. Goldman and his regarding atrial fibrillation and its management. I did cover the cornerstone or pillars of management of atrial fibrillation, including stroke prevention, ventricular rate control, atrial rhythm control and risk factor/lifestyle modifications. I think the most challenging situation is his apparent inability to safely take oral anticoagulation therapy, due to his history of hereditary hemorrhagic telangiectasia. I would very much like to get clarification as to whether he has contraindication to any duration of oral anticoagulation therapy, or even antiplatelet therapy such as aspirin and Plavix. I will need to get this information from his PCP and GI specialist. The reason this is so important, is that we are considering treatment options for the atrial fibrillation that unfortunately require at least short-term anticoagulation and/or antiplatelet therapy. I think there are two considerations in this regard. One would be that regardless of what we do with the atrial fibrillation, even if we have him undergo apparently successful atrial fibrillation catheter ablation, he would still need to be treated for stroke prevention from atrial fibrillation based upon his risk profile and not upon the perceived atrial fibrillation burden. So the issue of stroke prevention will not be resolved by anything we do with the atrial fibrillation itself. His risk profile utilizing the [id number] score is elevated, with a score of two points which will very soon within just over a week and a half become three points when he turns 73 years of age. He therefore has sufficiently high risk for stroke from atrial fibrillation, again this will be true regardless of what we do with the atrial fibrillation itself, so there will be a recommendation that he be protected from stroke with oral anticoagulation therapy. If the risk to benefit of oral anticoagulation therapy is unfavorable, as it seems to be due to the HHT, then perhaps he could be considered for an alternative to oral anticoagulation therapy such as left atrial appendage closure device (Watchman). However, even the Watchman device requires a short-term treatment of approximately 45 days of either OAC + low dose ASA or clopidogrel (Plavix) + low dose ASA. I will need Mr. Goldman's PCP or GI specialist to provide an opinion as to whether or not 45 days of such therapy (either regimen) would be reasonably safe. If not, at this time with the current version of Watchman device he would not be a candidate. There is at least one clinical trial ongoing with a new version of Watchman evaluating whether other post implant regimens can be used, but such studies have not yet been completed. The other issue is whether Mr. Goldman can undergo a catheter ablation procedure for the atrial fibrillation. Again, there is the issue of oral anticoagulation therapy as the safe completion of such an ablation procedure would require oral anticoagulation therapy for at least a week or two prior to the procedure and for at least a couple of weeks after the procedure. So overall in atrial fibrillation catheter ablation procedure would require approximately 1 month of oral anticoagulation therapy. So again there is the question of whether Mr. Goldman is able to take short-term oral anticoagulation therapy so that he would be a candidate for ablation procedure. We will await word from Dr. Bui regarding these questions. It might be that Mr. Goldman is not a candidate for atrial fibrillation catheter ablation or Watchman left atrial appendage closure device if he cannot safely take short term OAC and/or antiplatelet therapy. We could consider antiarrhythmic drug therapy for suppression of the atrial fibrillation. I will say that if he is rendered asymptomatic from the atrial fibrillation with ventricular rate control alone, such as with optimal beta-joo dosing, one could argue per Practice Guidelines he should not undergo advanced treatment strategies for the atrial fibrillation, such as antiarrhythmic drug therapy or catheter ablation. Nevertheless, if we do determine that he would have better symptom control with atrial fibrillation suppression and antiarrhythmic drug therapy is elected, the antiarrhythmic drug options are not substantially limited given he does not have contraindications to any of the available drug options. I would favor a Class IC agent such as flecainide or propafenone as the best initial option, can be initiated as an outpatient. This would be the best option particularly if catheter ablation is not an option due to inability to safely take OAC. But as stated, the issue of stroke prevention is not impacted by the atrial fibrillation rhythm management so still needs to be addressed. I had a very detailed and prolonged discussion with Mr. Goldman and his regarding my evaluation and recommendations. After our discussion, Mr. Goldman and his expressed understanding and I answered all questions to their apparent satisfaction. He expressed understanding of the conundrum and challenge associated with the issue of risk:benefit of OAC in light of his HHT. For now I recommend optimizing the beta-joo dosage to achieve better ventricular rate control. PLAN AND RECOMMENDATIONS: 1) optimize dosage of beta-joo to achieve better ventricular rate control 2) obtain opinion from Dr. Bui regarding whether Mr. Goldman can safely take short term OAC (if we elect to pursue atrial fibrillation catheter ablation) or either OAC + low dose ASA or clopidogrel + low dose ASA (if we elect left atrial appendage closure device Watchman) 3) if cannot take even short term OAC then he cannot be a candidate for atrial fibrillation ablation. In that case he should be treated with optimal rate control and if still symptomatic consider antiarrhythmic drug therapy with flecainide 4) if he cannot take even short term OAC + ASA or clopidogrel + ASA, then he cannot be a candidate for Watchman left atrial appendage closure device Return for plan of care will depend on further review. Nidia Mcdaniel MD 03/09/2023 Medical Decision Making: Problems: Moderate: New problem with uncertain prognosis Data: Unique source(s) for external note(s) reviewed: 3+ Unique test result(s) reviewed: 3+ Unique test(s) ordered: 1 Risk: Moderate: Moderate risk from testing/treatment, Drug management and Decision on minor surgery w/ risk factors Medical Decision Making Level: 4 - Moderate documented in this encounter [facility] 03-09-2023 Nurse Note Patient complains of heart racing a few months and sob at times. documented in this encounter [facility] 07-16-2022 History of Present illness Narrative Chief Complaint: High risk prostate cancer HPI: Harley Goldman is a 72 y.o. male with a past medical history significant for HHT (hereditary hemorrhagic telangiectasia) (1979); Anemia; Essential hypertension, benign; GERD (gastroesophageal reflux disease); Hyperlipidemia, who was found to have prostate cancer on TRUS needle biopsy done on 04/05/12 for elevated PSA of 4.89 ng/ml (02/23/12). Biopsy showed a Derick sum of 5+4, 3+4 and 3+3 disease , involving both right and left lobe, 9/12 cores were positive, involving 5-60% of the core ([id number], stage-II). CT abd/pelvis from 04/16/12 showed no evidence of metastatic disease and non-specific retroperitoneal lymph nodes measuring less than 10mm. Bone scan done on 04/16/12 showed no evidence of metastatic disease, but showed increased uptake in the cervical, thoracic and lumbar spine, right shoulder, b/l wrists, left-right mid foot and left forefoot c/w DJD. Patient mentioned diagnosed with HHT around 20 yrs back on colonoscopy which was done as a work up for anemia. His last colonoscopy was around 5 yrs back. He consented for treatment on CALGB 72927 trial which is a Randomized Phase III Study of Shabbir-Adjuvant Docetaxel and Androgen Deprivation Prior to Radical Prostatectomy versus Immediate Radical Prostatectomy in Patients with High-Risk, Clinically Localized Prostate Cancer. Patient randomized to surgery arm and underwent RARP by Dr Alonzo on 06/14/12. Pathology showed derick 4+3 = 7 prostate adenocarcinoma, involving 17% of both lobes, with negative margins/EPE/seminal vesicles invasion and 0/11 LN positive. pTNM: ypT2c N0. Since than, he is on clinical surveillance and remains with no evidence of recurrent disease. Interim History: Patient is here today for follow up while on surveillance. No new issues since last visit. No ED or hospital visits. No new medical problems. Updated on endoscopies. He feels well. 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 Urinary sx same, still wearing 1 ppd per day for occasional urinary dribbling, decreased stream, unchanged. No hot flashes or bone pain. Has penile implant for ED. Past Medical History: He has a past medical history of Anemia, Carpal tunnel syndrome, Colitis, ischemic, Essential hypertension, benign, GERD (gastroesophageal reflux disease), GI bleed (04/2016), H/O Clostridium difficile infection (04/2016), HHT (hereditary hemorrhagic telangiectasia) (1979), Hyperlipidemia, and Prostate cancer. He has no past medical history of Postoperative nausea and vomiting or Vascular disease. Past Surgical History: Past Surgical History: Procedure Laterality Date SHOULDER REPLACEMENT Left 04/23/2020 HAND SURGERY Right 04/2019 knuckle replacement INSERTION PROSTHESIS PENILE INFLATABLE MULTI-COMPONENT N/A 02/23/2013 Laterality: N/A; Surgeon: Iván Snow MD; Location: [facility]IOP [facility] PROSTATECTOMY RETROPUBIC RADICAL ROBOTIC N/A 06/14/2012 Laterality: N/A; Surgeon: David Alonzo MD; Location: [facility] MAIN OR LYMPHADENECTOMY PELVIC TOTAL ROBOTIC N/A 06/14/2012 Laterality: N/A; Surgeon: David Alonzo MD; Location: [facility] MAIN OR BIOPSY PROSTATE 04/05/2012 Derick 5+4=9, 3+4=7 (x3), 3+3=6. PSA = 4.89 ELBOW BURSA SURGERY HERNIA REPAIR KNEE ARTHROSCOPY RELEASE CARPAL TUNNEL Right Social History: He reports that he has never smoked. He has never used smokeless tobacco. He reports current alcohol use of about 5.8 standard drinks per week. He reports that he does not use drugs. Family History: He family history includes Cancer- Other in his father; Other - Specify in his father. Family Status Relation Name Status Father Mother Sister Alive Brother Alive Dariel Alive Dariel Alive Neg Hx (Not Specified) Current Medications: Current Outpatient Medications Medication Sig amLODIPine 10 MG tablet Take 1 tablet by mouth daily. Calcium Carbonate-Vitamin D (CALCIUM 500 + D PO) take 1 Tab by mouth daily every morning. cetirizine 10 MG Tab tablet Take 1 tablet by mouth daily as needed. esomeprazole [address] capsule esomeprazole ESOMEPRAZOLE MAGNESIUM 40 MG CPDR 1 capsule daily ESOMEPRAZOLE MAGNESIUM [phone] [facility] ([id number]) Ferrous Sulfate (SLOW FE PO) Take 325 mg by mouth 2 times daily. FOLIC ACID PO take 1 Tab by mouth daily every morning. hydroCHLOROthiazide 25 MG tablet Take 1 tablet by mouth daily. losartan 100 MG tablet Take 1 tablet by mouth daily. Multiple Vitamins-Minerals (MULTIVITAMIN PO) take 1 Tab by mouth daily every morning. simvastatin 40 MG tablet Take 1 tablet by mouth every evening. Turmeric (QC TUMERIC COMPLEX PO) Take by mouth. Allergies: Penicillin g Review of Systems A complete ROS was performed and all the pertinent findings were mentioned in HPI/interim history. The rest of ROS was otherwise negative. Physical Examination BP 130/71 (BP Location: Left arm, BP Position: Sitting) Pulse 73 Temp 98.5 F (36.9 C) (Oral) Resp 16 Ht 1.753 m (5' 9) Wt 92.4 kg (203 lb 12.8 oz) SpO2 96% BMI 30.10 kg/m Smoking Status Never General Appearance: Alert and oriented x3, in no acute distress. ECOG PS = 0 HEENT: Head atraumatic,normocephalic.Pupils equal, round, reactive to light. No scleral icterus.Mask on, previous visit, mucous membranes moist, no lesions. Neck: Supple, No palpable lymphadenopathy. Lungs: Clear to auscultation bilaterally. Normal respiratory effort. No w/r/r. Cardiac: Normal S1, S2. Rate and rhythm regular today, in past irregular with premature beats. No murmur, gallop or rub. GI: Abdomen is soft, nontender, nondistended, positive bowel sounds. No palpable hepatosplenomegaly. Extremities: No cyanosis, clubbing or edema. No bilateral lower extremity edema Neuro: CN 2-12 grossly intact. Speech is clear and appropriate. No focal spinal tenderness. Lymph: No palpable cervical, supraclavicular, axillary adenopathy. Musculoskeletal: No tenderness with palpation of ribs or vertebrae. No joint inflammation or swelling. Psych: Pleasant affect. No sign of agitation . Skin: No rash, excessive bruising, petechiae. LABS: Lab Results Component Value Date PSA <0.04 07/16/2022 PSA <0.06 06/19/2021 PSA <0.06 06/20/2020 PSA 0.04 06/22/2019 PSA 0.04 06/23/2018 PSA <0.04 12/28/2017 PSA <0.04 06/29/2017 PSA <0.04 12/29/2016 PSA <0.04 06/30/2016 PSA <0.04 12/31/2015 PSA <0.01 10/02/2015 PSA 0.03 07/04/2015 PSA 0.02 04/04/2015 PSA <0.01 12/25/2014 PSA 0.03 09/18/2014 PSA 0.03 06/13/2014 PSA 0.01 03/22/2014 PSA <0.01 12/06/2013 PSA 0.01 09/13/2013 PSA 0.01 06/14/2013 PSA <0.1 03/06/2013 PSA <0.01 12/08/2012 PSA <0.01 09/06/2012 PSA 0.05 07/06/2012 PSA 3.97 06/14/2012 PSA 4.22 (H) 05/11/2012 Lab Results Component Value Date TESTOSTERONE 361 06/19/2021 Assessment and Plan: High risk Prostate cancer (pT2c,N0), participated in CALGB 81842 randomized to surgery arm: No clinical finding of recurrent disease. Doing really well. PSA has remained undetectable. Testosterone normal. Continue yearly visit and per trial. Script for PSA every 3 month per trial. RTC 1 year. Stress incontinence: stable. Occasional urinary dribbling. ED: Underwent Insertion of multi-component penile prosthetic-Coloplast Titan on 02/23/[address] Snow with good results. 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 - Continues on iron supplementation. EGD as needed. Says these sx happen about every 5 yrs. Follows closely with map clerk. - 05/15/2016 hospitalization for GI bleed. Resolved. Has had EGD at that time. and colonoscopy within last 5 years. HTN: Stable. No sx today. Follows with PCP. Sharri Dimas MD documented in this encounter [facility] 07-16-2022 Instructions Maria C Mullins APRN-WORKFORCE SERVICES REPRESENTATIVE - 07/16/2022 2:20 PM EDT RTC 1 year with [employer] lab prior. documented in this encounter [facility] 08-23-2008 History of Past i llness Narrative Problem Noted Date Diagnosed Date Resolved Date Hemangioma of skin and subcutaneous tissue 08/23/2008 06/09/2010 Neoplasm of uncertain behavior of skin 12/02/2007 06/09/2010 Actinic keratosis 12/02/2007 06/09/2010 NEVUS////BENIGN SHABBIR SCALP/SKIN NECK 12/02/2007 06/09/2010 SANZ ANGIOMA////NEVUS, NON-NEOPLASTIC 12/02/2007 06/09/2010 TELANG////CAPILLARY DIS NEC/NOS 12/02/2007 06/09/2010 documented as of this encounter (statuses as of 03/10/2023) [facility] noteNo assessment information availableWGalion [facility] Work Phone: Evaluation note* Diagnosis Malignant neoplasm of prostate- Primary [facility] Diagnosis Onset Date Resolution Status Essential (primary) hypertension chronic Palpitations chronic Paroxysmal atrial fibrillation chronic History of GI bleed resolved [facility] Work Phone: Evaluation note* Diagnosis PAF (paroxysmal atrial fibrillation) (HCC)- Primary Atrial fibrillation Palpitations At risk for stroke Other specified personal history presenting hazards to health At risk for bleeding associated with anticoagulants HHT (hereditary hemorrhagic telangiectasia) (HCC) Hereditary hemorrhagic telangiectasia History of GI bleed Personal history of other diseases of digestive system documented in this encounter [facility] note* Diagnosis Malignant neoplasm of prostate- Primary documented in this encounter [facility] Summary Purpose Family History No Family History Records Found Relationship Condition Age at Onset Recorded Date/T christopher father Osler hemorrhagic te langiectasia syndrome Unknown Malignant neoplasm Unknown sister Osler hemorrhagic te langiectasia syndrome Unknown Advance Directives No Advanced Directives Records Found Advance Directive Response Recorded Date/ Time Advance Directives Yes May 15, 2016 6:59am Living Will No December 07 0 10:08am Power of Educational Consultant No December 07 020 10:08am Latest Code Status on File Code Status Date Activated Date Inactivated Comments Full Code 06/14/2012 5:04 PM 06/15/2012 12:52 PM Advance Directive Response Recorded Date/ Time Advance Directives Yes December 04, 2019 8:23am Living Will No December 07 0 10:08am Power of Educational Consultant No December 07 020 10:08am Date Activated Date Inactivated Comments 06/14/2012 5:04 PM 06/15/2012 12:52 PM Chief Complaint and Reason for Visit Chief Complaint Diarrhea STOOL SAMPLE ONLY Chief Complaint Diarrhea STOOL SAMPLE ONLY DYSPNEA LEXISCAN CHEST DISCOMFORT, DYSPNEA LEXISCAN CHEST DISCOMFORT, DYSPNEA AFIB/SVT (REMY) INT LABS Reason for Visit Essential (primary) hypertension Palpitations Paroxysmal atrial fibrillation History of GI bleed Chief Complaint Diarrhea STOOL SAMPLE ONLY DYSPNEA LEXISCAN CHEST DISCOMFORT, DYSPNEA LEXISCAN CHEST DISCOMFORT, DYSPNEA AFIB/SVT (REMY) INT LABS ATRIAL FIB FLUTTER Amb Documentation Reason for Visit Essential (primary) hypertension Palpitations Paroxysmal atrial fibrillation History of GI bleed Additional Source Comments (unrecognized sect ion and content) No Status Records FoundNo Status Records FoundNo Status Records FoundNo Status Records Found INFORMATION SOURCE (unrecogn ized section and content) DATE CREATED AUTHOR 10/13/2017 [facility] DATE CREATED AUTHOR AUTHOR'S ORGANIZ ATION 06/18/2023 [facility] DATE CREATED AUTHOR AUTHOR'S ORGANIZ ATION 08/26/2023 [facility] DATE CREATED AUTHOR AUTHOR'S ORGANIZ ATION 11/03/2024 [facility] Care Teams (unrecognized sec tion and content) Team Status: Active Member Role Status Dates Dr. Art Hadley MD Family Provider Active Dr. Ike Heart DO Primary Care Provider Active Team Status: Inactive Member Role Status Dates Dr. Ike Heart DO Primary Care Provider, Attendin g Provider Active Manager Nursing Relationship Specialty Start Date End Date Art Hadley MD [address] [phone] PCP - General Family Medicine 12/29/16 Hilton Gill MD [address] [facility] [address] [place], [place] [phone] Consulting Physician Urology 05/11/12 Dumont, Zita, RN Registered Nurse Medical Oncology 06/14/13 Leonor Harris Researcher 11/21/18 Team Status: Inactive Member Role Status Dates Dr. Ike Heart DO Primary Care Prov ider, Attending Provider, Referring Provider Active Team Status: Active Member Role Status Dates Dr. Ike Heart DO Primary Care Prov ider, Attending Provider, Referring Provider Active Team Status: Inactive Member Role Status Dates Dr. Ike Heart DO Primary Care Provider Active Dr. Tylor Bui MD Attending Provider, Referring Provider Active Team Status: Active Member Role Status Dates Dr. Ike Heart DO Primary Care Provider Active Dr. Tylor Bui MD Attending Provider, Referring Provider Active Team Status: Inactive Member Role Status Dates Dr. Ike Heart DO Primary Care Provider, Referrin g Provider Active Dr. Robyn Barreto MD Attending Provider Active Team Status: Active Member Role Status Dates Dr. Ike Heart DO Primary Care Prov ider, Referring Provider, Other Provider Active Dr. Alexis Zhou MD Attending Provider Active Team Status: Inactive Member Role Status Dates Dr. Ike Heart DO Primary Care Prov ider, Attending Provider, Referring Provider Active Dr. Tylor Bui MD Other Provider Active Team Status: Inactive Member Role Status Dates Dr. Ike Heart DO Primary Care Provider Active Dr. Robyn Barreto MD Attending Provider, Referring Pr ovider Active Team Status: Active Member Role Status Dates Dr. Ike Heart DO Primary Care Provider Active Dr. Robyn Barreto MD Attending Provider Active Team Status: Active Member Role Status Dates Dr. Ike Heart DO Primary Care Provider Active Lucinda Correa HEATING AND REFRIGERATION INSPECTOR, HEATING AND REFRIGERATION INSPECTOR-C Attending Provider Active Manager Nursing Relationship Specialty Start Date End Date Ike Heart DO [address] [place], [place] [phone] PCP - General Family Medicine 03/08/23 Robyn Barreto MD [address] [place], [place] [id number] Specialty Clinical Psychiatrist Cardiology 03/08/23 Tylro Bui MD [address] [place] [address] Specialty Clinical Psychiatrist Gastroenterology 03/09/23 Manager Nursing Relationship Specialty Start Date End Date Art Hadley MD [address] [place], [place] [phone] PCP - General Family Medicine 12/29/16 Hilton Gill MD [address] [place] [address] Consulting Physician Urology 05/11/12 Zita Dumont, RN Registered Nurse Medical Oncology 06/14/13 Leonor Harris Researcher 11/21/18 Goals (unrecognized section and content) Goals may be documented in a n alternate sectionGoals may be documented in an alternate sectionGoals may be documented in an alternate sectionGoals may be documented in an alternate sectionGoals may be documented in an alternate sectionGoals may be documented in an alternate sectionGoals may be documented in an alternate section Reason for Visit (unrecogniz ed section and content) Reason Comments Follow-up Reason Comments CARD New Patient Consult HEATING AND REFRIGERATION INSPECTOR REF FOR PAF Reason Comments Prostate Cancer Source Comments (unrecognize d section and content) In the event this informatio n is protected by the Federal Confidentiality of Alcohol and Drug Abuse Patient Records regulations: The Federal rules restrict any use of the information to criminally investigate or prosecute any alcohol or drug abuse patient.[facility] FOR RECORDS PERTAINING TO PATIENTS WHO ARE OR HAVE BEEN ENROLLED IN A CHEMICAL DEPENDENCY/SUBSTANCEABUSE PROGRAM, SOME INFORMATION MAY BE OMITTED. This clinical summary was aggregated from multiple sources. Caution should be exercised in using it in the provision of clinical care. This summary normalizes information from multiple sources, and as a consequence, information in this document may materially change the coding, format and clinical context of patient data. In addition, data may be omitted in some cases. CLINICAL DECISIONS SHOULD BE BASED ON THE PRIMARY CLINICAL RECORDS. [facility]. provides no warranty or guarantee of the accuracy or completeness of information in this document.
[2025-04-13 15:22] LABS: Mucous, Urine 0 SEEN /hpf (<or=2+)
[2025-04-13 15:25] LABS: Color, Urine Yellow (Yellow); Glucose, Dipstick Normal (Normal); Ketone-Dipstick Negative (Negative); Leukocyte Esterase-Dipstick Negative /ul (Negative); Nitrite-Dipstick Negative (Negative); Occult Blood-Urine 10 /ul (Negative); Protein-Dipstick Negative (Negative); Specific Gravity, Urine 1.010 (1.002-1.030); Urine Bilirubin Dipstick Negative (Negative)
[2025-04-13 16:00] VITALS: BP 151/80; PULSE 71; RESP 18; TEMP 36.8; O2SAT 97
[2025-04-13 16:03] LABS: Red Blood Cells-Urine 0-5 SEEN /hpf (0-5); Squamous Epithelial Cells - UA 0-5 SEEN /hpf (0-5)
== END 2025-04-13 16:05 | disposition home or self-care (01) ==
PROVIDERS: Emergency Provider Emergency Medicine; PCP Family Medicine; Visit Provider Emergency Medicine
DX: S20.212A Contusion of left front wall of thorax, initial encounter (principal); I48.0 Paroxysmal atrial fibrillation; R10.A2 Flank pain, left side; W19.XXXA Unspecified fall, initial encounter; I10 Essential (primary) hypertension; E78.5 Hyperlipidemia, unspecified; K76.0 Fatty (change of) liver, not elsewhere classified; K21.9 Gastro-esophageal reflux disease without esophagitis; D64.9 Anemia, unspecified; Z87.19 Personal history of other diseases of the digestive system; Z85.46 Personal history of malignant neoplasm of prostate; Z79.899 Other long term (current) drug therapy
CPT/HCPCS: 74176; 81001; 99282